=== PATIENT | female | born 1975 | race Caucasian/White ===

== ENCOUNTER 2018-10-30 15:28 | Emergency (ER) | payer MEDICAID, OTHER ==
[2018-10-30] MEDS ORDERED: NS 0.9% 1000 ML** 1,000 ML IV ONE (15:58)
[2018-10-30] MEDS ORDERED: Acetaminophen TAB* 325 MG PO ONE (15:58)
[2018-10-30] MEDS ORDERED: NS 0.9% 1000 ML** 1,000 ML IV.FLUID IV ONE (15:59)
[2018-10-30] MEDS ORDERED: cefTRIAXone(*) 1 GM in NS 0.9% 50 ML* 50 ML IVPB ONE (16:00)
--- NOTE | 2018-10-30 16:01 | ED ---
Altered Mental Status - HPI Summary HPI Summary: Patient is a 43 y/o F presenting to ED with EMS and law enforcement for AMS. affirmative action officer reports that patient was found smoking what is likely synthetic marijuana. Patient became agitated, even more so when she was placed in handcuffs, and she began to yell and scream. It is reported that the patient slammed her head on the ground +14 times. In the room, patient claims to have no memory of the incident. Patient claims that she had initially thought she was smoking marijuana but it was actually K2. She notes that she had some alcohol today as well. Patient also claims that she is a recovering heroin addict. No SI, no HI reported. No HANLEY, no neck pain at present. In room, patient is tearful and cooperative. On triage, pain is denied, nothing is noted to aggravate/alleviate Sx. Home medications and allergies are reviewed. - History Of Current Complaint Stated Complaint: 2208 Time Seen by Provider: 10/30/18 15:33 Hx Obtained From: Patient Hx Last Menstrual Period: 04/10/14 Onset/Duration: Resolved - patient is now cooperative and calm Timing: Intermittent, Lasting Minutes Severity Currently: None - pain denied Character: Agitation Aggravating Factor(s): Drug Abuse Alleviating Factor(s): Nothing Associated Signs And Symptoms: Negative: Headache - Allergies/Home Medications Allergies/Adverse Reactions: Allergies Allergy/AdvReac Type Severity Reaction Status Date / Time MS Bee Venom [Bee Venom] Allergy Intermediate Hives Verified 01/30/16 13:18 MS Shellfish Allergy Allergy Intermediate Nausea Verified 01/30/16 13:18 [Shellfish Allergy] MS Soap [Soap] Allergy Intermediate Hives Verified 01/30/16 13:18 MS Penicillins [Penicillins] Allergy Unknown Unknown Verified 01/30/16 13:18 Reaction Details PMH/Surg Hx/FS Hx/Imm Hx Endocrine/Hematology History: Denies: Hx Diabetes, Hx Thyroid Disease Cardiovascular History: Denies: Hx Congestive Heart Failure, Hx Hypertension Respiratory History: Denies: Hx Asthma, Hx Chronic Obstructive Pulmonary Disease (COPD) GI History: Denies: Hx Ulcer History: Denies: Hx Renal Disease Musculoskeletal History: Reports: Hx Back Problems - djd,herniated disc Sensory History: Reports: Hx Contacts or Glasses Denies: Other Sensory Impairments Opthamlomology History: Reports: Hx Contacts or Glasses Denies: Other Sensory Impairments Psychiatric History: Reports: Hx Anxiety, Hx Depression, Hx Inpatient Treatment , Hx Suicide Attempt, Hx Substance Abuse Comment Only: Hx of Violent Episodes Against Others - unknown - Surgical History Surgery Procedure, Year, and Place: tubal-1998. appendectomy-1999. left arm surgery-2012. tonsilectomy Hx Anesthesia Reactions: No Infectious Disease History: Denies: Hx Clostridium Difficile, Hx Hepatitis, Hx Human Immunodeficiency Virus (HIV), Hx of Known/Suspected MRSA, Hx Shingles, Hx Tuberculosis, Hx Known/ Suspected VRE, Hx Known/Suspected VRSA, History Other Infectious Disease, Traveled Outside the [place] in Last 30 Days - Family History Known Family History: Negative: Blood Disorder - Social History Alcohol Use: Rare Substance Use Type: Reports: None Substance Use Comment - Amount & Last Used: rarely Smoking Status (MU): Current Every Day Smoker Type: Cigarettes Amount Used/How Often: 1 ppd Length of Time of Smoking/Using Tobacco: 15 YEARS Have You Smoked in the Last Year: Yes Review of Systems Musculoskeletal: Other - NEGATIVE - NECK PAIN Negative: Headache Psychological: Other - NEGATIVE - HI, SI; POSITIVE - AMS, SINCE RESOLVED All Other Systems Reviewed And Are Negative: Yes Physical Exam - Summary Physical Exam Summary: VITAL SIGNS: Reviewed. GENERAL: Patient is a well-developed and nourished female who is lying comfortable in the stretcher. Patient is not in any acute respiratory distress. Patient appears to be under the influence of a substance. HEAD AND FACE: No signs of trauma. No ecchymosis, hematomas or skull depressions. No sinus tenderness. EYES: PERRLA, EOMI x 2, No injected conjunctiva, no nystagmus. EARS: Hearing grossly intact. Ear canals and tympanic membranes are within normal limits. MOUTH: Oropharynx within normal limits. NECK: Supple, trachea is midline, no adenopathy, no JVD, no carotid bruit, no c- spine tenderness, neck with full ROM. CHEST: Symmetric, no tenderness at palpation LUNGS: Clear to auscultation bilaterally. No wheezing or crackles. CVS: Regular rate and rhythm, S1 and S2 present, no murmurs or gallops appreciated. ABDOMEN: Soft, non-tender. No signs of distention. No rebound no guarding, and no masses palpated. Bowel sounds are normal. EXTREMITIES: FROM in all major joints, no cyanosis or clubbing. NEURO: Alert and oriented x 3. No acute neurological deficits. Speech is normal and follows commands. SKIN: Dry and warm; swelling and erythema of dorsal aspect of right wrist and hand. PSYCH: Depressed, quiet, and denies any suicidal thoughts or plan. No homicidal thoughts or plan. No signs of psychosis or pressure speech. No tangential speech. Triage Information Reviewed: Yes Vital Signs On Initial Exam: Initial Vitals Temp Pulse Resp BP Pulse Ox 101.8 F 144 20 111/71 96 10/30/18 15:49 10/30/18 15:49 10/30/18 15:49 10/30/18 15:49 10/30/18 15:49 Vital Signs Reviewed: Yes Diagnostics - Laboratory Result Diagrams: 10/30/18 16:10 10/30/18 16:10 Lab Statement: Any lab studies that have been ordered have been reviewed, and results considered in the medical decision making process. - Radiology CXR Radiology Interpretation Completed By: ED Physician Summary of Radiographic Findings: IMPRESSION: No cardiopulmonary disease is noted. - CT brain ct CT Interpretation Completed By: Radiologist Summary of CT Findings: IMPRESSION: Likely acute sinusitis involving the left maxillary sinus. No intracranial. mass or hemorrhage is noted. This report was reviewed by ED physician. - EKG 1620 Cardiac Rate: Tachycardia - rate of 126 BPM EKG Rhythm: Sinus Tachycardia Summary of EKG Findings: EKG showed sinus tachycardia with rate of 126 BPM, no ST elevation. Re-Evaluation - Re-Evaluation First Eval Re-Evaluation Time: 13:37 Comment: She requests to be discharged home. The patient is with her and the is alert and oriented 3 and seems to be not under any influence of any substance. The will take the patient home at his responsibility. The patient wants to go home with his her therefore I will be discharging the patient home with follow-up with PCP. She will be given a prescription for Keflex for the right hand cellulitis. I discussed all the findings and test results with the patient. Patient was instructed to return to the emergency room immediately if any of the symptoms return or worsens. Plan of care was discussed with the patient and understands and agrees. All questions were answered at patient satisfaction. There were no further complaints or concerns. Lung exam before discharge: CTA B/L. Good air exchange. No wheezing or crackles heard. CVS: S1 and S2 present. No murmurs appreciated. Patient is alert and oriented x 3. Patient is hemodynamically stable. Patient will be discharged home with follow up PCP in the next 2-3 days Altered Mental Statu Course/Dx - Course Assessment/Plan: Patient is a 43 y/o F presenting to ED with EMS and law enforcement for AMS. affirmative action officer reports that patient was found smoking what is likely synthetic marijuana. Patient became agitated, even more so when she was placed in handcuffs, and she began to yell and scream. It is reported that the patient slammed her head on the ground +14 times. In the room, patient claims to have no memory of the incident. Patient claims that she had initially thought she was smoking marijuana but it was actually K2. She notes that she had some alcohol today as well. Patient also claims that she is a recovering heroin addict. No SI, no HI reported. No HANLEY, no neck pain at present. In room, patient is tearful and cooperative. Blood work without any significant abnormality except for WBCs of 13.1, glucose 144, troponin 0.00. Beta hCG is negative. Alcohol level less than 10. Influenza A and B is negative. In the ED course the patient was tachycardic, slightly hypertensive, and the BG 144. Therefore I started the sepsis protocol and gave the patient IV fluids 30 ccs per KG, she was given Rocephin and blood cultures were sent. After the patient was given IV fluids and Tylenol all her vital signs are stable. I believe that her symptoms are secondary to the symptoms marijuana that she took. However she has small carea of cellulitis in the right hand probably the source of infection. She requests to be discharged home. The patient is with her and the is alert and oriented 3 and seems to be not under any influence of any substance. The will take the patient home at his responsibility. The patient wants to go home with his her therefore I will be discharging the patient home with follow-up with PCP. She will be given a prescription for Keflex for the right hand cellulitis. I discussed all the findings and test results with the patient. Patient was instructed to return to the emergency room immediately if any of the symptoms return or worsens. Plan of care was discussed with the patient and understands and agrees. All questions were answered at patient satisfaction. There were no further complaints or concerns. Lung exam before discharge: CTA B/L. Good air exchange. No wheezing or crackles heard. CVS: S1 and S2 present. No murmurs appreciated. Patient is alert and oriented x 3. Patient is hemodynamically stable. Patient will be discharged home with follow up PCP in the next 2-3 days - Diagnoses Provider Diagnoses: Polysubstance abuse, Cellulitis Discharge - Sign-Out/Discharge Documenting (check all that apply): Patient Departure - discharge Patient Received Moderate/Deep Sedation with Procedure: No - NO PROCEDURES DONE - Discharge Plan Condition: Stable Disposition: HOME Prescriptions: Cephalexin CAP* [Keflex CAP*] 500 mg PO QID #40 cap Patient Education Materials: Cellulitis (ED), Polysubstance Abuse (ED) Referrals: Michael Myers MD [Primary Care Provider] - 3 Days Additional Instructions: RETURN TO EMERGENCY DEPARTMENT FOR ANY NEW OR WORSENING SYMPTOMS. FOLLOW UP WITH PRIMARY CARE PHYSICIAN WITHIN THREE DAYS. - Billing Disposition and Condition Condition: STABLE Disposition: Home - Attestation Statements Document Initiated by Justinibe: Yes Documenting Scribe: ERNESTO BOSE Provider For Whom Justinibe is Documenting (Include Credential): LALO GUZMAN MD Scribe Attestation: IERNESTO , scribed for LALO GUZMAN MD on 10/31/18 at 1115. Scribe Documentation Reviewed: Yes Provider Attestation: The documentation as recorded by the ERNESTO sánchez accurately reflects the service I personally performed and the decisions made by me, LALO GUZMAN MD Status of Scribe Document: Viewed
[2018-10-30 16:25] LABS: ABS Basophils 0.1 10^3/ul (0-0.2); ABS Eosinophils 0 10^3/ul (0-0.6); ABS Monocytes 0.7 10^3/ul (0-0.8); ABS Neutrophils 11.3 10^3/ul (1.5-7.7); ABS Nucleated RBC 0 10^3/ul; Eosinophil % 0.2 %; Hematocrit 44 % (35-47); Hemoglobin 14.9 g/dl (12.0-16.0); Lymphocyte % 7.6 %; Mean Corpuscular HGB Conc 34 g/dl (31-36); Mean Corpuscular Hemoglobin 32 pg (27-31); Mean Corpuscular Volume 93 fL (80-97); Mean Platelet Volume 8.8 fL (7.4-10.4); Nucleated Red Blood Cells % 0; Platelet Count 265 10^3/ul (150-450); Red Cell Distribution Width 13 % (10.5-15); White Blood Count 13.1 10^3/ul (3.5-10.8)
[2018-10-30 16:39] LABS: ALT 16 U/L (7-52); AST 21 U/L (13-39); Albumin 4.4 g/dL (3.2-5.2); Albumin/Globulin Ratio 1.8 (1-3); Alkaline Phosphatase 55 U/L (34-104); Anion Gap 7 mmol/L (2-11); BUN/Creatinine Ratio 14.9 (8-20); Blood Urea Nitrogen 14 mg/dL (6-24); CO2 Carbon Dioxide 27 mmol/L (22-32); Calcium 9.4 mg/dL (8.6-10.3); Chloride 102 mmol/L (101-111); Creatine Kinase 164 U/L (10-223); EGFR African American 78.6 (>60); Globulin 2.5 g/dL (2-4); Glucose 144 mg/dL (70-100); Sodium 136 mmol/L (135-145); Total Protein 6.9 g/dL (6.4-8.9)
[2018-10-30 16:45] LABS: HCG Pregnancy < 0.60 mIU/mL
[2018-10-30 17:15] LABS: Acetaminophen < 15 mcg/mL; Alcohol < 10 mg/dL (<10); Salicylate < 2.50 mg/dL (<30)
[2018-10-30 17:22] LABS: C Reactive Protein 5.65 mg/L (<8.01)
[2018-10-30 17:27] LABS: TSH (Thyroid Stimulating Horm) 0.56 mcIU/mL (0.34-5.60)
[2018-10-30 18:18] LABS: Influenza A Molecular NEGATIVE (Negative); Influenza B Molecular NEGATIVE (Negative)
[2018-10-30 19:01] LABS: Urine Appearance Cloudy; Urine Bacteria Absent (Absent); Urine Bilirubin Negative (Negative); Urine Blood Negative (Negative); Urine Color Yellow; Urine Glucose Negative (Negative); Urine Ketones Trace (Negative); Urine Nitrite Negative (Negative); Urine Protein Negative (Negative); Urine Red Blood Cell Absent (Absent); Urine Specific Gravity 1.023 (1.010-1.030); Urine Squamous Epithelial Cell Present (Absent); Urine Urobilinogen Negative (Negative); Urine White Blood Cell 2+(11-20/hpf) (Absent)
[2018-10-30 19:09] LABS: Barbiturates Urine Screen None Detected (None Detect); Benzodiazepine Urine Screen None Detected (None Detect); Urine Cannabinoids Screen Presumptive Positive (None Detect)
[2018-10-30 19:27] VITALS: BP 139/79
== END 2018-10-30 19:25 | disposition home or self-care (01) ==
LOC: ED 15:28
DX: F19.10 Other psychoactive substance abuse, uncomplicated (principal); L03.90 Cellulitis, unspecified; F17.210 Nicotine dependence, cigarettes, uncomplicated
CPT/HCPCS: 36415; 70450; 71046; 80053; 80307; 80320; 80329; 81003; 81015; 82550; 83605; 84443; 84484; 84702; 85025; 85384; 85652; 86140; 87040; 87086; 93005; 99284; A9270-GY; G0480; J0696

== ENCOUNTER 2019-04-01 09:16 | Emergency (ER) | payer MEDICAID, OTHER ==
[2019-04-01] MEDS ORDERED: NS 0.9% 1000 ML** 1,000 ML IV ONE (09:20)
[2019-04-01] MEDS ORDERED: Ondansetron ODT TAB* 4 MG PO ONE (09:20)
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
[2019-04-01] MEDS ORDERED: Iodixanol* (CONTRAST) 320 MG/ML 100 ML SDV IV ONE (09:31)
[2019-04-01 09:58] LABS: Hematocrit 45 % (35-47); Hemoglobin 14.8 g/dL (12.0-16.0); Mean Corpuscular HGB Conc 33 g/dL (31-36); Mean Corpuscular Hemoglobin 31 pg (27-31); Mean Corpuscular Volume 94 fL (80-97); Mean Platelet Volume 9.4 fL (7.4-10.4); Platelet Count 235 10^3/uL (150-450); Red Blood Count 4.73 10^6 /uL (3.70-4.87); Red Cell Distribution Width 13 % (10-15)
[2019-04-01 10:23] LABS: ALT 18 U/L (7-52); AST 20 U/L (13-39); Albumin 3.8 g/dL (3.2-5.2); Albumin/Globulin Ratio 1.4 (1-3); Alkaline Phosphatase 63 U/L (34-104); Anion Gap 6 mmol/L (2-11); BUN/Creatinine Ratio 15.8 (8-20); Blood Urea Nitrogen 12 mg/dL (6-24); CO2 Carbon Dioxide 26 mmol/L (22-32); Calcium 9.1 mg/dL (8.6-10.3); Chloride 107 mmol/L (101-111); Creatine Kinase 71 U/L (10-223); EGFR African American 100.5 (>60); EGFR Non-African American 83.1 (>60); Globulin 2.7 g/dL (2-4); Glucose 106 mg/dL (70-100); Potassium 4.5 mmol/L (3.5-5.0); Sodium 139 mmol/L (135-145); Total Protein 6.5 g/dL (6.4-8.9)
[2019-04-01 10:25] LABS: HCG Pregnancy < 0.60 mIU/mL
[2019-04-01 10:30] LABS: ABS Basophils 0.1 10^3/ul (0-0.2); ABS Eosinophils 0.3 10^3/ul (0-0.6); ABS Monocytes 0.6 10^3/ul (0-0.8); Lymphocyte % 18.1 %
[2019-04-01] MEDS ORDERED: Morphine 4 MG/ML VIAL (1 ml) 4 MG/ML VIAL IV ONE (10:34)
[2019-04-01 10:58] LABS: Urine Appearance Clear; Urine Bacteria Absent (Absent); Urine Bilirubin Negative (Negative); Urine Blood 1+ (Negative); Urine Color Straw; Urine Glucose Negative (Negative); Urine Ketones Negative (Negative); Urine Nitrite Negative (Negative); Urine Protein Negative (Negative); Urine Red Blood Cell Trace(0-2/hpf) (Absent); Urine Specific Gravity 1.017 (1.010-1.030); Urine Squamous Epithelial Cell Present (Absent); Urine Urobilinogen Negative (Negative); Urine White Blood Cell Absent (Absent)
[2019-04-01] MEDS ORDERED: Ketorolac INJ* 30 MG/ML 1 ML VIAL IV PUSH ONE (11:10)
[2019-04-01 11:24] LABS: Urine Benzodiazepine Screen None Detected (None Detect); Urine Opiates Screen None Detected (None Detect)
[2019-04-01 12:00] VITALS: BP 155/88
== END 2019-04-01 11:58 | disposition home or self-care (01) ==
LOC: ED 09:16
DX: M79.18 Myalgia, other site (principal); V03.90XA Pedestrian on foot injured in collision with car, pick-up truck or van, unspecified whether traffic or nontraffic accident, initial encounter; Y93.01 Activity, walking, marching and hiking; F17.210 Nicotine dependence, cigarettes, uncomplicated; Z88.0 Allergy status to penicillin; M51.36 Other intervertebral disc degeneration, lumbar region
CPT/HCPCS: 36415; 72131; 74177; 80053; 80307; 81003; 81015; 82550; 83605; 84702; 85025; 85060; 96361; 96374; 96375; 99283; A9270-GY; J1885; J2270

== ENCOUNTER 2019-06-12 18:56 | Inpatient (IN) | payer MEDICAID ==
[2019-06-12] MEDS ORDERED: NS 0.9% 1000 ML** 2,000 ML IV ONE (19:12)
[2019-06-12] MEDS ORDERED: metroNIDAZOLE IV 500 MG/100ML* 500 MG/100 ML BAG IVPB ONE (19:15)
[2019-06-12] MEDS ORDERED: cefTRIAXone(*) 2 GM in NS 0.9% 100 ML* 100 ML IVPB ONE (19:15)
--- NOTE | 2019-06-12 19:15 | ED ---
Skin Complaint - HPI Summary HPI Summary: The patient is a 44 y/o F presenting to [facility] with a chief complaining of gradual onset swelling in the right mandible following a break in her right lower molar filling two days ago. She reports that her symptoms began after she had eaten something and got something stuck in a broken filling, which she tried to remove using a toothpick, although she states she usually just swishes water or mouthwash around as treatment. This caused immense pain in the tooth, which onset swelling in the mandibular region. The next day, there was an increase in swelling, and she went to her PCP and received a course of abx. However, she now has erythema extending from the right mandible into the neck and across to the left side. Currently, her symptoms are rated 3/10 in severity. She is unsure if shes had a fever, although she has had a warm sensation. She also states she has been unable to eat secondary to the pain. It is noted that the patient is partaking in a methadone program, which she attends to daily by going to the treatment center and receiving 50mg Methadone. PMHx: anxiety, depression, sciatica, tonsillectomy. Current every day smoker, rare EtOH, marijuana and cocaine use. Medications reviewed. Allergies noted. - History of Current Complaint Chief Complaint: EDRashSkinAbscess Time Seen by Provider: 06/12/19 19:07 Stated Complaint: SWELLING FROM ABSCSESS PER EMS Hx Obtained From: Patient Hx Last Menstrual Period: 04/10/14 Onset/Duration: Started Days Ago - two, Still Present, Worse Since - yesterday Skin Exposure Onset/Duration: Days Ago Timing: Lasting Days Onset Severity: Mild Current Severity: Moderate Pain Intensity: 3 Pain Scale Used: 0-10 Numeric Skin Location: Other: - right jaw into the neck Character: Swelling, Redness Aggravating Symptom(s): Other: - eating Alleviating Symptom(s): Treatment [employer]: - abx to no relief Associated Signs & Symptoms: Fever - warm sensation - Allergy/Home Medications Allergies/Adverse Reactions: Allergies Allergy/AdvReac Type Severity Reaction Status Date / Time bee venom protein (honey bee) Allergy Hives Verified 04/01/19 09:37 Penicillins Allergy Unknown Verified 04/01/19 09:37 Reaction Details shellfish derived Allergy Nausea And Verified 04/01/19 09:37 Vomiting ivory soap Allergy Hives Uncoded 04/01/19 09:37 Home Medications: Home Medications Fluoxetine HCl 1 cap PO DAILY 06/12/19 [History Confirmed 06/12/19] Gabapentin 2 cap PO TID 06/12/19 [History Confirmed 06/12/19] Ibuprofen TAB* [Motrin TAB* 600 MG] 1 tab PO Q6H PRN 06/12/19 [History Confirmed 06/12/19] Trazodone HCl 100 mg PO BEDTIME 06/12/19 [History Confirmed 06/12/19] PMH/Surg Hx/FS Hx/Imm Hx Endocrine/Hematology History: Denies: Hx Diabetes, Hx Thyroid Disease Cardiovascular History: Denies: Hx Congestive Heart Failure, Hx Hypertension Respiratory History: Denies: Hx Asthma, Hx Chronic Obstructive Pulmonary Disease (COPD) GI History: Denies: Hx Ulcer History: Denies: Hx Renal Disease Musculoskeletal History: Reports: Hx Back Problems - djd,herniated disc Sensory History: Reports: Hx Contacts or Glasses Denies: Other Sensory Impairments Opthamlomology History: Reports: Hx Contacts or Glasses Denies: Other Sensory Impairments Neurological History: Reports: Other Neuro Impairments/Disorders - sciatica Psychiatric History: Reports: Hx Anxiety, Hx Depression, Hx Inpatient Treatment , Hx Suicide Attempt, Hx Substance Abuse Denies: Hx Eating Disorder Comment Only: Hx of Violent Episodes Against Others - unknown - Surgical History Surgical History: Yes Surgery Procedure, Year, and Place: tubal-1998. appendectomy-1999. left arm surgery-2012. tonsillectomy Hx Anesthesia Reactions: No Infectious Disease History: No Infectious Disease History: Denies: Hx Clostridium Difficile, Hx Hepatitis, Hx Human Immunodeficiency Virus (HIV), Hx of Known/Suspected MRSA, Hx Shingles, Hx Tuberculosis, Hx Known/ Suspected VRE, Hx Known/Suspected VRSA, History Other Infectious Disease, Traveled Outside the [place] in Last 30 Days - Family History Known Family History: Negative: Hypertension, Blood Disorder - Social History Alcohol Use: Rare Hx Substance Use: Yes - Heroin Substance Use Type: Reports: Cocaine, Marijuana Substance Use Comment - Amount & Last Used: rarely Hx Tobacco Use: Yes Smoking Status (MU): Current Every Day Smoker Type: Cigarettes Amount Used/How Often: 1 ppd Length of Time of Smoking/Using Tobacco: 15 YEARS Have You Smoked in the Last Year: Yes Review of Systems Positive: Fever - unsure but warm sensation Positive: Dental Pain - right low teeth Positive: Other - swelling and erythema extending over the neck into the jaw All Other Systems Reviewed And Are Negative: Yes Physical Exam - Summary Physical Exam Summary: Appearance: Well-appearing, Well-nourished, lying in bed comfortably Skin: Warm, dry Eyes: sclera anicteric, no conjunctival pallor ENT: mucous membranes moist, pharynx appears normal Neck: Swelling about the right side of the jaw that extends across the midlines to the left neck, Redness extending up the side of the mandible, Supple, nontender Respiratory: Clear to auscultation, no signs of respiratory distress Cardiovascular: Normal S1, S2. No murmurs. Normal distal pulses in tibial and radial bilaterally. Abdomen: Soft, nontender, normal active bowel sounds present Musculoskeletal: Normal, Strength/ROM Intact Neurological: A&Ox3, awake and alert, mentation is normal, speech is fluent and appropriate Psychiatric: affect is normal, does not appear anxious or depressed Triage Information Reviewed: Yes Vital Signs On Initial Exam: Initial Vitals Temp Pulse Resp BP Pulse Ox 97.5 F 83 16 106/60 98 06/12/19 19:03 06/12/19 19:03 06/12/19 19:03 06/12/19 19:03 06/12/19 19:03 Vital Signs Reviewed: Yes Diagnostics - Vital Signs Vital Signs Temp Pulse Resp BP Pulse Ox 06/12/19 19:03 97.5 F 83 16 106/60 98 - Laboratory Result Diagrams: 06/13/19 10:21 06/13/19 10:21 Lab Statement: Any lab studies that have been ordered have been reviewed, and results considered in the medical decision making process. - CT Neck CT CT Interpretation Completed By: Radiologist Summary of CT Findings: Impression: 1. 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 2. Multiple dental caries and associated radicular cysts. ED physician has reviewed this report. Re-Evaluation - Re-Evaluation First Eval Re-Evaluation Time: 01:26 Comment: Pt is very upset about only having sandwiches to eat and she feels that she is suffering withdrawal symptoms from opioids. I have tried to calm her down and ordered an extra dose of methadone and a dose of ativan. Course/Dx - Course Course Of Treatment: Pt is a 44 y/o F with cc of swelling and erythema gradually worsening over the last two days after getting food stuck in a broken filling in the right lower molar. Upon physical exam, the pt exhibits swelling in the right side of the jaw that extends acorss the midlines to the left neck with redness extending up to the side of the mandible. In the ED course, the patient was administered IV fluids, IV Flagyl, and IV Ceftriaxone. Blood work reveals sodium 132, chloride 96, creatinine 1.89, glucose 103, and CRP 189.18. I discussed the patients case with Dr. Beal from hospitalist services, and he accepts the pt for admission. He will follow up with Soft Tissue Neck CT impression reveals suspicion for Trevon's angina with tongue base abscess and extensive perimandibular and neck inflammation. She understands and agrees with this plan. She is diagnosed with Trevon's angina. - Diagnoses Provider Diagnoses: Trevon's angina - Physician Notifications Discussed Care Of Patient With: Felix Beal - hospitalist Time Discussed With Above Provider: 20:10 Instructed by Provider To: Admit As Observation - Following discussion of pt's case, Dr. Beal accepts her for admission. Discharge ED - Sign-Out/Discharge Documenting (check all that apply): Patient Departure - Patient accepted for admission by Dr. Beal. Patient Received Moderate/Deep Sedation with Procedure: No - Discharge Plan Condition: Stable Disposition: ADMITTED TO [facility] - Billing Disposition and Condition Condition: STABLE Disposition: Admitted to [facility] - Attestation Statements Document Initiated by Ayan: Yes Documenting Scribe: Lauren Washington Provider For Whom Ayan is Documenting (Include Credential): Dr. Varinder Arriaga MD Scribsujatha Attestation: Lauren Stahl scribed for Dr. Varinder Arriaga MD on 06/13/19 at 1905. Scribe Documentation Reviewed: Yes Provider Attestation: The documentation as recorded by the Lauren sánchez accurately reflects the service I personally performed and the decisions made by me, Dr. Varinder Arriaga MD Status of Scribe Document: Viewed
[2019-06-12 20:06] LABS: ALT 11 U/L (7-52); AST 24 U/L (13-39); Albumin 3.6 g/dL (3.2-5.2); Albumin/Globulin Ratio 1.2 (1-3); Alkaline Phosphatase 64 U/L (34-104); Anion Gap 9 mmol/L (2-11); Blood Urea Nitrogen 17 mg/dL (6-24); C Reactive Protein 189.18 mg/L (<8.01); CO2 Carbon Dioxide 27 mmol/L (22-32); Calcium 8.9 mg/dL (8.6-10.3); Chloride 96 mmol/L (101-111); EGFR Non-African American 28.9 (>60); Glucose 103 mg/dL (70-100); Potassium 3.7 mmol/L (3.5-5.0); Sodium 132 mmol/L (135-145); Total Protein 6.6 g/dL (6.4-8.9)
[2019-06-12 20:13] LABS: HCG Pregnancy < 0.60 mIU/mL
[2019-06-12] MEDS ORDERED: NS 0.9% 1000 ML** 3,000 ML IV ONE (20:55)
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
[2019-06-12 21:59] LABS: ABS Basophils 0.1 10^3/ul (0-0.2); ABS Eosinophils 0.2 10^3/ul (0-0.6); ABS Lymphocytes 0.9 10^3/ul (1.0-4.8); ABS Monocytes 1.1 10^3/ul (0-0.8); Eosinophil % 0.9 %; Hematocrit 39 % (35-47); Lymphocyte % 5.5 %; Mean Corpuscular HGB Conc 34 g/dL (31-36); Mean Corpuscular Hemoglobin 31 pg (27-31); Mean Corpuscular Volume 92 fL (80-97); Mean Platelet Volume 10.1 fL (7.4-10.4); Platelet Count 217 10^3/uL (150-450); Red Cell Distribution Width 13 % (10-15); White Blood Count 16.3 10^3/uL (3.5-10.8)
[2019-06-12 22:22] LABS: Urine Appearance Turbid; Urine Bacteria Absent (Absent); Urine Bilirubin Negative (Negative); Urine Blood 1+ (Negative); Urine Color Amber; Urine Glucose 1+(50 mg/dL) (Negative); Urine Ketones Trace (Negative); Urine Nitrite Negative (Negative); Urine Protein 3+(>=500 mg/dL) (Negative); Urine Red Blood Cell Absent (Absent); Urine Specific Gravity 1.017 (1.010-1.030); Urine Squamous Epithelial Cell Present (Absent); Urine Urobilinogen Negative (Negative); Urine White Blood Cell 3+(>20/hpf) (Absent)
[2019-06-13] MEDS ORDERED: Vancomycin(*) 1,000 MG in NS 0.9% 250 ML* 250 ML IVPB ONE ×3 (01:17→20:00)
[2019-06-13] MEDS ORDERED: LORazepam TAB(*) 1 MG PO ONE (01:25)
[2019-06-13] MEDS ORDERED: Methadone TAB* 10 MG PO ONE ×2 (01:25→09:19)
[2019-06-13] MEDS ORDERED: Vancomycin per Pharmacy* NOTE FOLLOW UP SCH (02:00)
[2019-06-13] MEDS ORDERED: Meropenem 1 GM PREMIX(*) 1 GM/50 ML BAG IV SCH ×2 (02:30→05:30)
[2019-06-13] MEDS: Gabapentin CAP(*) 400 MG PO SCH ×4 (03:43→22:05)
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
[2019-06-13] MEDS: NS 0.9% 1000 ML** 1,000 ML IV SCH (06:02)
[2019-06-13] MEDS ORDERED: FLUoxetine CAP* 20 MG PO SCH (09:00)
[2019-06-13] MEDS: Ibuprofen TAB* 600 MG PO PRN (09:01)
[2019-06-13 10:32] LABS: ABS Basophils 0.1 10^3/ul (0-0.2); ABS Eosinophils 0.2 10^3/ul (0-0.6); ABS Lymphocytes 1.1 10^3/ul (1.0-4.8); ABS Monocytes 0.9 10^3/ul (0-0.8); ABS Neutrophils 7.5 10^3/ul (1.5-7.7); Eosinophil % 2.5 %; Hematocrit 38 % (35-47); Hemoglobin 12.7 g/dL (12.0-16.0); Lymphocyte % 11.2 %; Mean Corpuscular HGB Conc 34 g/dL (31-36); Mean Corpuscular Hemoglobin 32 pg (27-31); Mean Corpuscular Volume 93 fL (80-97); Mean Platelet Volume 9.3 fL (7.4-10.4); Platelet Count 207 10^3/uL (150-450); Red Blood Count 4.04 10^6 /uL (3.70-4.87); Red Cell Distribution Width 13 % (10-15); White Blood Count 9.8 10^3/uL (3.5-10.8)
[2019-06-13 10:48] LABS: BUN/Creatinine Ratio 8.6 (8-20); Calcium 8.3 mg/dL (8.6-10.3); EGFR African American 68.9 (>60); EGFR Non-African American 56.9 (>60); Potassium 3.9 mmol/L (3.5-5.0)
--- NOTE | 2019-06-13 11:33 | CONS ---
CONSULTATION REPORT: DATE OF CONSULT: 06/13/19 ATTENDING: The hospitalist service. CONFIGURATION MANAGEMENT CONSULTANT: Dr. Cowan BRIEF HISTORY: This 44-year-old was admitted to the hospital with what appears to be a right dental abscess. She had right submandibular swelling and discomfort. She was admitted for IV antibiotics. There was some evidence of infiltration, but no evidence of discrete abscess. She is clinically improving, not having any airway distress and able to mobilize her tongue without difficulty, open her jaw without difficulty. On examination, she appears to have right submandibular, mandibular cellulitis with firmness, possible small abscess. This appears to be a periosteal abscess most likely related to dental caries. I would continue on IV antibiotics. If she is not improving in 48 hours, I would re-scan her with this additional information. I would suggest I and D of an abscess under general anesthesia may be helpful. She should have a dental followup after discharge if the clinical finding is improving without need for an abscess. Thanks for allowing me to see this patient. [id number]/CPS #: [id number] KERRY
[2019-06-13] MEDS: Nicotine Lozenge* mini 4 MG LOZNG.MINI MT PRN ×2 (13:58→22:05)
--- NOTE | 2019-06-13 15:04 | PN ---
Subjective Date of Service: 06/13/19 Interval History: Patient is very drowsy today. Patient still feels a if she is withdrawing from opiates. Patient states she hasn't eaten or slept in 4 days. Patient has diminished pain in her jaw. Patient in the afternoon got very agitated because of feeling disrespected by the nursing staff. Patient threatened to go AMA and then acquiesced to staying after she was able to give her barley steeper personally to her boyfriend. Patient is very concerned about not being taken seriously and not being given her meds appropriately. Family History: Unchanged from Admission Social History: Unchanged from Admission Past Medical History: Unchanged from Admission Objective Active Medications: Fluoxetine HCl (Prozac Cap*) 40 mg PO DAILY [facility] Last Admin: 06/13/19 09:00 Dose: 40 mg Gabapentin (Neurontin Cap(*)) 800 mg PO TID [facility] Last Admin: 06/13/19 13:57 Dose: 800 mg Sodium Chloride (Ns 0.9% 1000 Ml) 1,000 mls @ 100 mls/hr IV PER RATE [facility] Last Admin: 06/13/19 06:02 Dose: 100 mls/hr Vancomycin HCl 1,000 mg/ (Sodium Chloride) 250 mls @ 166.667 mls/hr IVPB ONCE ONE Stop: 06/13/19 17:29 Vancomycin HCl 1,000 mg/ (Sodium Chloride) 250 mls @ 166.667 mls/hr IVPB Q12H [facility] Cefepime HCl (Maxipime 2 Gm In Dextrose Duplex (*)) 2 gm in 50 mls @ 100 mls/ hr IV Q12H [facility] Metronidazole/Sodium Chloride (Flagyl 500 Mg Ivpb*) 500 mg in 100 mls @ 100 mls /hr IVPB Q8H [facility] Ibuprofen (Motrin Tab*) 600 mg PO Q6H PRN PRN Reason: PAIN - MILD Last Admin: 06/13/19 09:01 Dose: 600 mg Nicotine Polacrilex (Nicotine Lozenge Mini) 4 mg MT Q2H PRN PRN Reason: CRAVING Last Admin: 06/13/19 13:58 Dose: 4 mg Pharmacy Consult (Vancomycin Per Pharmacy*) 1 note FOLLOW UP .VANC PER PHARMACY DAWIT; Protocol Pharmacy Profile Note (Vancomycin Trough Check) 1 note FOLLOW UP 0530 ONE Stop: 06/15/19 05:31 Trazodone HCl (Desyrel Tab*) 50 mg PO BEDTIME DAWIT Vital Signs - 8 hr 06/13/19 06/13/19 06/13/19 07:15 08:00 08:58 Temperature 98.1 F Pulse Rate 112 Respiratory 20 20 20 Rate Blood Pressure 110/64 (mmHg) O2 Sat by Pulse 97 Oximetry 06/13/19 06/13/19 06/13/19 10:46 10:58 11:15 Temperature 98.1 F Pulse Rate 71 Respiratory 18 16 14 Rate Blood Pressure 147/86 (mmHg) O2 Sat by Pulse 100 Oximetry 06/13/19 13:57 Temperature Pulse Rate Respiratory 17 Rate Blood Pressure (mmHg) O2 Sat by Pulse Oximetry Oxygen Devices in Use Now: None Appearance: Patient is a 44yo female who appears stated age and is sitting in the bed in [facility]. Eyes: No Scleral Icterus, PERRLA Ears/Nose/Mouth/Throat: NL Teeth, Lips, Gums, Clear Oropharnyx, Mucous Membranes Moist, - - Swelling in the interior fo the mouth, poor dentition. Neck: - - Large swelling in the neck, particularly on the left side. Respiratory: Symmetrical Chest Expansion and Respiratory Effort, Clear to Auscultation Cardiovascular: NL Sounds; No Murmurs; No JVD, RRR, No Edema Abdominal: NL Sounds; No Tenderness; No Distention, No Hepatosplenomegaly Lymphatic: No Cervical Adenopathy Extremities: No Edema, No Clubbing, Cyanosis Skin: No Rash or Ulcers, No Nodules or Sclerosis Neurological: Alert and Oriented x 3, NL Sensation, NL Muscle Strength and Tone , - - Somnolence. CN II-XII intact. Result Diagrams: 06/13/19 10:21 06/13/19 10:21 Microbiology and Other Data: Microbiology 06/12/19 22:08 Urine Culture - Final Urine No Growth (<1,000 CFU/mL) Assess/Plan/Problems-Billing Assessment: Patient is a 44yo female with a PMH for Opiate use disorder, PTSD, Depression, here with neck cellulitis and possible small abscess related to dental caries who is improving on IV antibiotics. - Patient Problems (1) Cellulitis and abscess of neck Current Visit: Yes Status: Acute Code(s): L03.221 - CELLULITIS OF NECK; L02.11 - CUTANEOUS ABSCESS OF NECK SNOMED Code(s): 476389089 Comment: - Small abscess, Able to breathe and handle secretions. - Appreciate ENT input - Continue IV antibiotics, narrow to Cefepime/Flagyl from [facility] - May need I/D at some point. (2) Opiate dependence Current Visit: Yes Status: Acute Code(s): F11.20 - OPIOID DEPENDENCE, UNCOMPLICATED SNOMED Code(s): 67951394 Comment: - Continue Methadone at 60mg daily - Outpatient treatment through [facility]. - Has been having active withdrawal symptoms. (3) DVT prophylaxis Current Visit: Yes Status: Acute Code(s): Z29.9 - ENCOUNTER FOR PROPHYLACTIC MEASURES, UNSPECIFIED SNOMED Code(s): 168245714 Comment: - Ambulation, Low Risk (4) Full code status Current Visit: Yes Status: Acute Code(s): Z78.9 - OTHER SPECIFIED HEALTH STATUS SNOMED Code(s): 599164981 Status and Disposition: Inpatient for IV antibiotics for life-threatening neck infection.
[2019-06-13] MEDS ORDERED: Cefepime 2 GM in Dextrose(*) 2 GM/50 ML BAG IV SCH (15:20)
[2019-06-13] MEDS ORDERED: metroNIDAZOLE IV 500 MG/100ML* 500 MG/100 ML BAG IVPB SCH (16:00)
[2019-06-13] MEDS: Nicotine PATCH 21 MG/24 HR* PATCH TRANSDERM SCH ×2 (18:45→18:47)
[2019-06-13] MEDS ORDERED: LORazepam INJ* 2 MG/ML 1 ML VIAL IV PUSH PRN (19:55)
[2019-06-13] MEDS ORDERED: Lorazepam PYXIS KEY PRN (19:55)
[2019-06-13] MEDS ORDERED: traZODone TAB* 100 MG PO SCH ×2 (21:00)
[2019-06-13] MEDS ORDERED: Nicotine Patch Removal NOTE PATCH OFF SCH (21:00)
[2019-06-13] MEDS ORDERED: traZODone TAB* 50 MG TAB PO SCH (21:00)
[2019-06-13] MEDS ORDERED: Ondansetron INJ* 2 MG/ML VIAL IV PRN (22:38)
[2019-06-13] MEDS: metroNIDAZOLE IV 500 MG/100ML* 500 MG/100 ML BAG IVPB SCH (23:22)
[2019-06-14] MEDS: NS 0.9% 1000 ML** 1,000 ML IV SCH (03:50)
[2019-06-14] MEDS: Ibuprofen TAB* 600 MG PO PRN (04:58)
[2019-06-14] MEDS: Nicotine PATCH 21 MG/24 HR* PATCH TRANSDERM SCH ×2 (05:21→09:54)
[2019-06-14] MEDS: Gabapentin CAP(*) 400 MG PO SCH ×2 (05:21→14:27)
[2019-06-14] MEDS ORDERED: Cefepime 2 GM in Dextrose(*) 2 GM/50 ML BAG IV SCH (05:30)
[2019-06-14] MEDS: metroNIDAZOLE IV 500 MG/100ML* 500 MG/100 ML BAG IVPB SCH (05:37)
[2019-06-14] MEDS ORDERED: Methadone TAB* 10 MG PO SCH (06:00)
[2019-06-14] MEDS ORDERED: FLUoxetine CAP* 20 MG PO SCH (06:00)
[2019-06-14 06:38] LABS: ABS Basophils 0.1 10^3/ul (0-0.2); ABS Eosinophils 0.3 10^3/ul (0-0.6); ABS Lymphocytes 1.3 10^3/ul (1.0-4.8); ABS Monocytes 0.7 10^3/ul (0-0.8); ABS Neutrophils 3.1 10^3/ul (1.5-7.7); Eosinophil % 4.7 %; Hematocrit 36 % (35-47); Hemoglobin 12.1 g/dL (12.0-16.0); Lymphocyte % 24.9 %; Mean Corpuscular HGB Conc 34 g/dL (31-36); Mean Corpuscular Hemoglobin 31 pg (27-31); Mean Corpuscular Volume 93 fL (80-97); Mean Platelet Volume 9.5 fL (7.4-10.4); Nucleated Red Blood Cells % 0.1; Platelet Count 205 10^3/uL (150-450); Red Blood Count 3.86 10^6 /uL (3.70-4.87); Red Cell Distribution Width 13 % (10-15); White Blood Count 5.4 10^3/uL (3.5-10.8)
[2019-06-14 06:57] LABS: BUN/Creatinine Ratio 9.5 (8-20); Calcium 8.7 mg/dL (8.6-10.3); EGFR African American 103.2 (>60); EGFR Non-African American 85.3 (>60); Potassium 4.3 mmol/L (3.5-5.0)
[2019-06-14] MEDS ORDERED: Vancomycin(*) 1,000 MG in NS 0.9% 250 ML* 250 ML IVPB SCH (08:00)
[2019-06-14 11:50] VITALS: BP 103/54
[2019-06-14] MEDS ORDERED: Methadone TAB* 10 MG PO ONE (13:54)
--- NOTE | 2019-06-14 15:58 | PN ---
Subjective Date of Service: 06/14/19 Interval History: Patient has been agitated today about her IV pole beeping, angry that she feels her bags were searched yesterday without her consent. Today she was angry we asked her consent to get Substance Use d/o records from [facility], feels she was told we already talked to them yesterday. She spends excessive time in bathroom, and staff are concerned she is using other substances. She denies smoking or other substance abuse. She agrees to UDS. She has pain w/ swallowing. IV antibiotics have been delayed due to IV site malfunctioning frequently. She is upset that IV was not move earlier. Today she got IV in LT forearm w/ US guidance. Family History: Unchanged from Admission Social History: Unchanged from Admission Past Medical History: Unchanged from Admission Objective Active Medications: Fluoxetine HCl (Prozac Cap*) 40 mg PO DAILY@0600 [facility] Last Admin: 06/14/19 05:21 Dose: 40 mg Gabapentin (Neurontin Cap(*)) 800 mg PO TID@0600,1400,2100 [facility] Last Admin: 06/14/19 14:27 Dose: 800 mg Sodium Chloride (Ns 0.9% 1000 Ml) 1,000 mls @ 100 mls/hr IV PER RATE [facility] Last Admin: 06/14/19 03:50 Dose: 100 mls/hr Vancomycin HCl 1,000 mg/ (Sodium Chloride) 250 mls @ 166.667 mls/hr IVPB 0800, 2000 [facility] Last Admin: 06/14/19 11:12 Dose: 166.667 mls/hr Cefepime HCl (Maxipime 2 Gm In Dextrose Duplex (*)) 2 gm in 50 mls @ 100 mls/ hr IV 0530,1730 [facility] Last Admin: 06/14/19 04:57 Dose: 100 mls/hr Metronidazole/Sodium Chloride (Flagyl 500 Mg Ivpb*) 500 mg in 100 mls @ 100 mls /hr IVPB 0600,1400,2200 [facility] Last Admin: 06/14/19 05:37 Dose: 100 mls/hr Ibuprofen (Motrin Tab*) 600 mg PO Q6H PRN PRN Reason: PAIN - MILD Last Admin: 06/14/19 04:58 Dose: 600 mg Lorazepam (Ativan Inj*) 1 mg IV PUSH Q4H PRN PRN Reason: AGITATION Last Admin: 06/14/19 05:16 Dose: 1 mg Methadone HCl (Dolophine Tab*) 70 mg PO DAILY@0600 [facility] Nicotine (Nicotine Patch 21 Mg/24 Hr*) 1 patch TRANSDERM DAILY@0800 [facility] Last Admin: 06/14/19 09:54 Dose: Not Given Nicotine Polacrilex (Nicotine Lozenge Mini) 4 mg MT Q2H PRN PRN Reason: CRAVING Last Admin: 06/13/19 22:05 Dose: 4 mg Ondansetron HCl (Zofran Inj*) 4 mg IV Q4H PRN PRN Reason: NAUSEA/VOMITING Last Admin: 06/13/19 22:56 Dose: 4 mg Pharmacy Consult (Vancomycin Per Pharmacy*) 1 note FOLLOW UP .VANC PER PHARMACY [facility]; Protocol Trazodone HCl (Desyrel Tab*) 100 mg PO BEDTIME [facility] Last Admin: 06/13/19 22:05 Dose: 100 mg Vital Signs - 8 hr 06/14/19 06/14/19 06/14/19 08:00 11:15 14:06 Temperature 36.7 C Pulse Rate 69 Respiratory 18 18 17 Rate Blood Pressure 103/54 (mmHg) O2 Sat by Pulse 94 Oximetry 06/14/19 06/14/19 14:08 14:27 Temperature Pulse Rate Respiratory 17 16 Rate Blood Pressure (mmHg) O2 Sat by Pulse Oximetry Oxygen Devices in Use Now: None Appearance: hoarse voice, angry, argumentative Eyes: No Scleral Icterus Ears/Nose/Mouth/Throat: NL Teeth, Lips, Gums, - - tender soft edema in RT>LT submandibular area, 2 cm RT sup cerv LN Neck: NL Appearance and Movements; NL JVP Respiratory: Symmetrical Chest Expansion and Respiratory Effort Cardiovascular: NL Sounds; No Murmurs; No JVD Abdominal: NL Sounds; No Tenderness; No Distention, No Hepatosplenomegaly Neurological: - - alert, agitated, somnolent at times when calm Lines/Tubes/Other Access: Clean, Dry and Intact Peripheral IV Nutrition: Taking PO's Result Diagrams: 06/14/19 05:51 06/14/19 05:51 Assess/Plan/Problems-Billing Assessment: Patient is a 44yo female with a PMH for Opiate use disorder, PTSD, Depression, here with neck cellulitis and possible small abscess related to dental caries who is improving on IV antibiotics. - Patient Problems (1) Cellulitis and abscess of neck Current Visit: Yes Status: Acute Priority: High Code(s): L03.221 - CELLULITIS OF NECK; L02.11 - CUTANEOUS ABSCESS OF NECK SNOMED Code(s): 400441964 Comment: - Small abscess, no airway compromise. - Discussed goals of care with patient, she needs to interact with people so we can exist in same space, so she can get treatment - Continue IV antibiotics, Vanco, Cefepime/Flagyl (2) Opiate dependence Current Visit: Yes Status: Acute Priority: Medium Code(s): F11.20 - OPIOID DEPENDENCE, UNCOMPLICATED SNOMED Code(s): 12143487 Comment: - Increase Methadone to 70mg daily - Outpatient treatment through [facility], will get records - Agitation appears partly personality, partly withdrawal (3) DVT prophylaxis Current Visit: Yes Status: Acute Priority: Low Code(s): Z29.9 - ENCOUNTER FOR PROPHYLACTIC MEASURES, UNSPECIFIED SNOMED Code(s): 714084931 Comment: - Ambulation, Low Risk (4) Tobacco abuse Current Visit: Yes Status: Acute Priority: Medium Code(s): Z72.0 - TOBACCO USE SNOMED Code(s): 550158219 Comment: -Nurse smelled tobacco in BR. Patient denies smoking, states she dumped tobacco down toilet. -Reinforced hospital policy, we will need to search her bag if friend does not take all her belongings. Status and Disposition: Inpatient for IV antibiotics for life-threatening neck infection.
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
[2019-06-15] MEDS ORDERED: Methadone TAB* 10 MG PO SCH (06:00)
[2019-06-15] MEDS ORDERED: Vancomycin Trough Check NOTE FOLLOW UP ONE (07:30)
== END 2019-06-14 17:30 | disposition left against medical advice (07) | DRG 114 ==
LOC: ED 18:56 → MED 06-13 01:12
PROVIDERS: ADMIT Internal Medicine; ATTEND Internal Medicine
DX: K12.2 Cellulitis and abscess of mouth (principal); N17.9 Acute kidney failure, unspecified; F11.20 Opioid dependence, uncomplicated; F32.9 Major depressive disorder, single episode, unspecified; F43.10 Post-traumatic stress disorder, unspecified; F17.210 Nicotine dependence, cigarettes, uncomplicated; K02.9 Dental caries, unspecified; G47.00 Insomnia, unspecified; Z79.899 Other long term (current) drug therapy; Z91.030 Bee allergy status; Z88.0 Allergy status to penicillin; Z91.013 Allergy to seafood; Z91.048 Other nonmedicinal substance allergy status
CPT/HCPCS: 36415; 70490; 80048; 80053; 81003; 81015; 83605; 83735; 84702; 85025; 86140; 87086; 93005; 99284; A9270-GY; J0692; J0696; J2060; J2185; J2405; J3370

== ENCOUNTER 2019-06-14 19:34 | Inpatient (IN) | payer MEDICAID, OTHER ==
--- NOTE | 2019-06-14 20:01 | ED ---
Neck Pain - HPI Summary HPI Summary: The patient is a 44 y/o F presenting to [facility] with a chief complaint of right- sided jaw pain with swelling over the last few days. She was admitted to the hospital two days ago for Ludwigs angina following a dental issue, but she signed out AMA today. She states that she wanted to go see her kids but missed the last bus from the hospital and had to walk. Per triage, she was found passed out in front of admission, which is when a clinical assessment team was called, the pt decided to come back into the ED. Currently, her symptoms are rated 4/10 in severity. There is suspicion for substance use since she has hx, but she denies any use in the last 5 years. She requests admission for continuing treatment. PMHx: sciatica, tonsillectomy, anxiety, depression, PTSD, substance abuse. Current everyday cigarette smoker, rare EtOH, cocaine and marijuana use. Medications reviewed. Allergies noted. - History of Current Complaint Chief Complaint: EDDentalPain Stated Complaint: INFECTION PER NURSE Time Seen by Provider: 06/14/19 19:45 Hx Obtained From: Patient Hx Last Menstrual Period: 04/10/14 Onset/Duration Of Injury/Symptoms: Days Mechanism Of Injury: Other - dental infection Timing: Lasting Days Onset/Duration: Started days ago, Still Present Severity Initially: Moderate Severity Currently: Moderate Pain Intensity: 4 Pain Scale Used: 0-10 Numeric Location: Discrete At: - right jaw Character: Other: - swelling Aggravating Factors: Nothing Alleviating Factors: Nothing Associated Signs & Symptoms: Positive: Swelling Related History: Other - left AMA from hospital today with dx and tx for Trevon' s angina - Allergies/Home Medications Allergies/Adverse Reactions: Allergies Allergy/AdvReac Type Severity Reaction Status Date / Time bee venom protein (honey bee) Allergy Hives Verified 06/14/19 21:00 Penicillins Allergy Unknown Verified 06/14/19 21:00 Reaction Details shellfish derived Allergy Nausea And Verified 06/14/19 21:00 Vomiting soap Allergy Hives Verified 06/14/19 23:28 PMH/Surg Hx/FS Hx/Imm Hx Endocrine/Hematology History: Reports: Other Endocrine/Hematological Disorders - Trevon's angina Denies: Hx Diabetes, Hx Thyroid Disease Cardiovascular History: Denies: Hx Congestive Heart Failure, Hx Hypertension Respiratory History: Denies: Hx Asthma, Hx Chronic Obstructive Pulmonary Disease (COPD) GI History: Denies: Hx Ulcer History: Denies: Hx Renal Disease Musculoskeletal History: Reports: Hx Back Problems - djd,herniated disc Sensory History: Reports: Hx Contacts or Glasses Denies: Hx Hearing Aid, Other Sensory Impairments Opthamlomology History: Reports: Hx Contacts or Glasses Denies: Other Sensory Impairments Neurological History: Reports: Other Neuro Impairments/Disorders - sciatica Psychiatric History: Reports: Hx Anxiety, Hx Depression, Hx Post Traumatic Stress Disorder, Hx Inpatient Treatment, Hx Community Mental Health Tx - stated she has been seen at [facility] twice and didnt feel it helped either time, Hx Substance Abuse Denies: Hx Eating Disorder, Hx Panic Disorder, Hx Schizophrenia, Hx Bipolar Disorder, Hx Suicide Attempt, Hx of Violent Episodes Against Others - Surgical History Surgical History: Yes Surgery Procedure, Year, and Place: tubal-1998. appendectomy-1999. left arm surgery-2012. tonsillectomy Hx Anesthesia Reactions: No Infectious Disease History: No Infectious Disease History: Denies: Hx Clostridium Difficile, Hx Hepatitis, Hx Human Immunodeficiency Virus (HIV), Hx of Known/Suspected MRSA, Hx Shingles, Hx Tuberculosis, Hx Known/ Suspected VRE, Hx Known/Suspected VRSA, History Other Infectious Disease, Traveled Outside the [place] in Last 30 Days - Family History Known Family History: Negative: Hypertension, Diabetes, Blood Disorder - Social History Alcohol Use: Rare Hx Substance Use: Yes - Heroin Substance Use Type: Reports: Cocaine, Marijuana Substance Use Comment - Amount & Last Used: rarely Hx Tobacco Use: Yes Smoking Status (MU): Current Every Day Smoker Type: Cigarettes Amount Used/How Often: 1 ppd Length of Time of Smoking/Using Tobacco: 15 YEARS Have You Smoked in the Last Year: Yes Review of Systems Positive: Other - pain in the right jaw Positive: Syncope All Other Systems Reviewed And Are Negative: Yes Physical Exam - Summary Physical Exam Summary: Appearance: Well-appearing, Well-nourished, lying in bed comfortable Skin: Warm, dry, no obvious rash Eyes: sclera anicteric, no conjunctival pallor ENT: mucous membranes moist Neck: Swelling in the jaw appears improved since last seeing her two nights ago Respiratory: No signs of respiratory distress Cardiovascular: Appears well perfused, pulses are nml Abdomen: deferred Musculoskeletal: Moving all 4 extremities without obvious discomfort Neurological: Awake and alert, mentation is normal, speech is fluent and appropriate Psychiatric: affect is normal, does not appear anxious or depressed Triage Information Reviewed: Yes Vital Signs On Initial Exam: Initial Vitals Temp Pulse Resp BP Pulse Ox 98.7 F 78 15 115/66 97 06/14/19 19:35 06/14/19 19:35 06/14/19 19:35 06/14/19 19:35 06/14/19 19:35 Vital Signs Reviewed: Yes Diagnostics - Vital Signs Vital Signs Temp Pulse Resp BP Pulse Ox 06/14/19 19:35 98.7 F 78 15 115/66 97 - Laboratory Result Diagrams: 06/15/19 09:10 06/16/19 12:11 Lab Statement: Any lab studies that have been ordered have been reviewed, and results considered in the medical decision making process. Neck Course/Dx - Course Course Of Treatment: Pt is a 44 y/o F with cc of right-sided jaw pain with known infection (Ludwigs angina) found today with syncopal event after leaving [facility] from the hospital requesting admission. Upon physical exam, the pt exhibits swelling in the jaw that appears to be improved since last seeing her two nights ago. In the ED course, the pt was administered Gabapentin and given a Nicotine lozenge. Toxicology report is positive for cannabinoids and cocaine. I spoke with Dr. Romero, hospitalist, who accepts the pt for admission. Pt understands and agrees with plan. Dx is Trevon's angina. - Diagnoses Provider Diagnoses: Trevon's angina - Physician Notifications Discussed Care Of Patient With: Lynn Romero - hospitalist Time Discussed With Above Provider: 21:00 Instructed by Provider To: Admit As Observation - I discussed the pt's case with Dr. Romero, who accepts the pt for admission. Discharge ED - Sign-Out/Discharge Documenting (check all that apply): Patient Departure - Patient accepted for admission by Dr. Romero. Patient Received Moderate/Deep Sedation with Procedure: No - Discharge Plan Condition: Stable Disposition: ADMITTED TO [facility] - Billing Disposition and Condition Condition: STABLE Disposition: Admitted to [facility] - Attestation Statements Document Initiated by Scribe: Yes Documenting Scribe: Lauren Washington Provider For Whom Scribe is Documenting (Include Credential): Dr. Varinder Arriaga MD Scribe Attestation: ILauren, scribed for Dr. Varinder Arriaga MD on 06/18/19 at 1848. Scribe Documentation Reviewed: Yes Provider Attestation: The documentation as recorded by the Lauren sánchez accurately reflects the service I personally performed and the decisions made by me, Dr. Varinder Arriaga MD Status of Scrarchie Document: Viewed
[2019-06-14] MEDS ORDERED: Gabapentin CAP(*) 300 MG PO ONE (21:14)
[2019-06-14 21:20] LABS: Urine Benzodiazepine Screen None Detected (None Detect); Urine Opiates Screen None Detected (None Detect)
[2019-06-14] MEDS: Nicotine Lozenge* mini 4 MG LOZNG.MINI MT PRN (21:36)
[2019-06-14] MEDS ORDERED: Vancomycin(*) 1,000 MG in NS 0.9% 250 ML* 250 ML IVPB ONE (23:16)
[2019-06-14] MEDS ORDERED: Nicotine* 4MG (FRUIT FLAVOR) GUM PO PRN (23:19)
[2019-06-14] MEDS ORDERED: NS 0.9% 1000 ML** 1,000 ML IV SCH (23:30)
[2019-06-14] MEDS ORDERED: Vancomycin per Pharmacy* NOTE FOLLOW UP SCH (23:45)
[2019-06-15] MEDS ORDERED: traZODone TAB* 100 MG PO SCH
[2019-06-15] MEDS ORDERED: Cefepime ADVAN(*) 1 GM in NS 0.9% 50 ML* 50 ML IVPB SCH ×2
[2019-06-15] MEDS: Cefepime 1 GM in Dextrose(*) 1 GM/50 ML BAG IV SCH ×2 (01:07→13:07)
--- NOTE | 2019-06-15 01:09 | HP ---
CC: Dr. Myers * HISTORY AND PHYSICAL: DATE OF ADMISSION: 06/14/19 PRIMARY CARE PROVIDER: Dr. Myers. CHIEF COMPLAINT: Fall and persistent jaw pain. HISTORY OF PRESENT ILLNESS: Ms. Rodriguez is a 44-year-old female with a history of depression/anxiety, PTSD, and IV drug abuse, who has been on methadone, who was admitted to the hospital on 06/13/19 with diagnosis of Trevon angina. The patient left against medical advice on the afternoon of 06/14/19. The patient tells me that she went to go see her children; however, they were not at home. She then decided she would come back to the hospital and got on the bus. Unfortunately, she states that she took the wrong bus and had to walk up the hill to the hospital. She states that she was walking around inside and just felt so tired and dizzy that she fell in the lobby. The patient had a clinical assessment team called. There was concern that the patient was under the influence of some substance. The patient vehemently denies using heroin or cocaine or any other illicit drugs in the time period she was out of the hospital. The patient breaks down and starts crying numerous times during my evaluation; however, she also very easily falls asleep and has to be awakened several times to continue to answer my questions. The patient previously did not have a urine drug screen obtained. The urine drug screen is positive for both marijuana and cocaine. She states that she last used a couple days ago. She states she typically smokes a cocaine. She states that she last used heroin last Friday. PAST MEDICAL HISTORY: 1. Depression/anxiety/PTSD. 2. History of IV drug abuse. PAST SURGICAL HISTORY: 1. Appendectomy. 2. Tubal ligation. 3. Right salpingectomy. 4. Left arm surgery. MEDICATIONS: 1. Trazodone 100 mg p.o. q.h.s. 2. Nicotine patch 21 mg per 24 hours 1 patch topically daily. 3. Nicotine gum 4 mg p.o. q.2 hours p.r.n. craving. 4. Methadone 70 mg p.o. daily. 5. Ibuprofen 600 mg p.o. q.6 hours p.r.n. pain. 6. Gabapentin 800 mg p.o. t.i.d. 7. Fluoxetine 40 mg p.o. daily. 8. The patient was prescribed doxycycline; however, she has returned to the emergency room and is being readmitted. ALLERGIES: PENICILLIN. FAMILY HISTORY: Mom is living. She is in her 70s, has a history of lung cancer. Dad is at the age of 60; he had a history of lung cancer. SOCIAL HISTORY: The patient smokes 1 pack per day. She drinks alcohol rarely. She abuses heroin and cocaine and states she has not done so recently. She does not work. She is not . She has 3 children. She is unable to chose her healthcare proxy at this time. REVIEW OF SYSTEMS: The patient is difficult to redirect as she is crying historically about the fact that I told her she may no longer have the bed upstairs and may need to stay the night in the emergency room. She does not answer the rest of my questions. PHYSICAL EXAMINATION GENERAL: The patient is a well-developed, young female, who appears much older than her stated age, sitting in chair, drowsy, falling asleep easily, needing to be reawaken several times, but in no acute distress. VITAL SIGNS: Blood pressure 100/61, pulse 74, respirations 15, temp 98.7, O2 sat 94% on room air. HEENT: Pupils are pinpoint . Extraocular muscles are intact. Oropharynx is clear. Oral mucosa is moist. The patient has slight trismus and is unable to open her mouth fully. She is unable to fully protrude her tongue though there is otherwise good movement. There is significant firmness to the submandibular region, midline into the right. PULMONARY: Breath sounds are clear to equal bilaterally. CARDIAC: Normal S1, S2. Regular rate and rhythm. I do not appreciate any murmurs. There is 1 to 2+ bilateral lower extremity pitting edema. ABDOMEN: Bowel sounds are present. Abdomen is soft, nontender, nondistended. MUSCULOSKELETAL: There is no cyanosis or clubbing of the digits. There is full active range of motion of all 4 extremities. NEUROLOGIC: Cranial nerves II through XII appeared to be grossly intact. Sensation is intact to light touch throughout. Strength is 5/5 and symmetric in both upper and lower extremities bilaterally. PSYCH: The patient is somewhat altered and does appear to be under the influence of some substance, though she denies the labs, only new labs, now compared to this morning her urine drug screen, which is positive for cocaine and cannabinoids. SKIN: Visible areas of skin are warm and dry. There are no rashes. There looks to be excoriation above the upper lip. ASSESSMENT AND PLAN: Ms. Rodriguez is a 44-year-old female, who was previously admitted from 06/13/19 through 06/14/19 when she left [facility], who returns to the emergency room after a fall in the lobby of the hospital and is being readmitted for treatment of presumed Trevon angina. 1. Trevon angina. The patient will be readmitted to [address] [place] [address]. She will be resumed on vancomycin, cefepime, and Flagyl. She was seen by Dr. Cowan earlier on 06/13/19. It was recommended that if she continues to improve that she will just need to continue IV antibiotic therapy with followup by dentist for her dental abscess. If she fails to improve further, reimaging was recommended. 2. Drug abuse. The patient will be maintained on her methadone. Her urine drug screen was negative for narcotics. I am concerned that she may have used cocaine in the interim between when she left the hospital and when she returned. She will need close monitoring within the hospital as there was concern that she was using some illicit substances in her hospital room. 3. Tobacco abuse. We will continue nicotine gum and patch. 4. Depression and anxiety. Continue Prozac and trazodone. 5. DVT prophylaxis. According to the Adult Thrombosis Prophylaxis Risk Factor Assessment Guide, the patient has a total risk factor score of 1, making her lower risk. Ambulation will be utilized as DVT prophylaxis. 6. Code status is full. TIME SPENT: Forty minutes was spent admitting this patient. [id number]/[facility] #: [id number] [facility] MEDICAL CENTEREmeli
[2019-06-15] MEDS: Nicotine Lozenge* mini 4 MG LOZNG.MINI MT PRN (05:19)
[2019-06-15] MEDS ORDERED: Methadone TAB* 10 MG PO SCH (06:00)
[2019-06-15 09:23] LABS: ABS Eosinophils 0.2 10^3/ul (0-0.6); ABS Lymphocytes 1.5 10^3/ul (1.0-4.8); ABS Monocytes 0.7 10^3/ul (0-0.8); ABS Neutrophils 2.6 10^3/ul (1.5-7.7); Eosinophil % 4.9 %; Hematocrit 37 % (35-47); Hemoglobin 12.5 g/dL (12.0-16.0); Lymphocyte % 28.9 %; Mean Corpuscular HGB Conc 34 g/dL (31-36); Mean Corpuscular Hemoglobin 32 pg (27-31); Mean Corpuscular Volume 93 fL (80-97); Mean Platelet Volume 8.9 fL (7.4-10.4); Platelet Count 212 10^3/uL (150-450); Red Blood Count 3.96 10^6 /uL (3.70-4.87); Red Cell Distribution Width 13 % (10-15)
[2019-06-15] MEDS: Nicotine PATCH 21 MG/24 HR* PATCH TRANSDERM SCH (10:10)
[2019-06-15] MEDS: FLUoxetine CAP* 20 MG PO SCH (10:11)
[2019-06-15] MEDS: metroNIDAZOLE TAB* 250 MG PO SCH ×2 (10:11→22:17)
[2019-06-15] MEDS: Gabapentin CAP(*) 400 MG PO SCH ×3 (10:12→23:32)
[2019-06-15] MEDS: Vancomycin(*) 1,000 MG in NS 0.9% 250 ML* 250 ML IVPB SCH ×2 (10:13→17:29)
[2019-06-15 11:31] LABS: Calcium 8.4 mg/dL (8.6-10.3); Potassium 4.1 mmol/L (3.5-5.0)
[2019-06-15 11:33] LABS: BUN/Creatinine Ratio 6.9 (8-20); EGFR African American 136.6 (>60); EGFR Non-African American 112.9 (>60)
--- NOTE | 2019-06-15 11:50 | PN ---
Subjective Date of Service: 06/15/19 Interval History: Patient tells me she's having on/off symptomatic fever and chills. Had large BM this morning. Denies diarrhea, chest pain, difficulty breathing, nausea, vomiting. Endorses headache. Reportedly was frustrated with nursing staff and stated, "I want to kill myself. " She then stated she had no plan and did not want to . Objective Active Medications: Fluoxetine HCl (Prozac Cap*) 40 mg PO DAILY [facility] Last Admin: 06/15/19 10:11 Dose: 40 mg Gabapentin (Neurontin Cap(*)) 800 mg PO TID [facility] Last Admin: 06/15/19 10:12 Dose: 800 mg Sodium Chloride (Ns 0.9% 1000 Ml) 1,000 mls @ 100 mls/hr IV PER RATE [facility] Last Admin: 06/15/19 01:08 Dose: 100 mls/hr Cefepime HCl (Maxipime 1 Gm In Dextrose Duplex (*)) 1 gm in 50 mls @ 100 mls/ hr IV Q12H [facility] Last Admin: 06/15/19 01:07 Dose: 100 mls/hr Vancomycin HCl 1,000 mg/ (Sodium Chloride) 250 mls @ 166.667 mls/hr IVPB Q8H [facility] Last Admin: 06/15/19 10:13 Dose: 166.667 mls/hr Ibuprofen (Motrin Tab*) 600 mg PO Q6H PRN PRN Reason: PAIN - MILD Methadone HCl (Dolophine Tab*) 70 mg PO DAILY@0600 [facility] Last Admin: 06/15/19 05:17 Dose: 70 mg Metronidazole (Flagyl Tab*) 500 mg PO BID [facility] Last Admin: 06/15/19 10:11 Dose: 500 mg Nicotine (Nicotine Patch 21 Mg/24 Hr*) 1 patch TRANSDERM DAILY@0800 [facility] Last Admin: 06/15/19 10:10 Dose: 1 patch Nicotine Polacrilex (Nicotine Lozenge Mini) 4 mg MT Q2H PRN PRN Reason: CRAVING Last Admin: 06/15/19 05:19 Dose: 4 mg Nicotine Polacrilex (Nicotine Gum*) 4 mg PO Q2H PRN PRN Reason: CRAVINGS Pharmacy Consult (Vancomycin Per Pharmacy*) 1 note FOLLOW UP .VANC PER PHARMACY [facility]; Protocol Pharmacy Profile Note (Nicotine Patch Removal Note*) 1 note PATCH OFF 2100 [facility] Pharmacy Profile Note (Vancomycin Trough Check) 1 note FOLLOW UP 929 ONE Stop: 06/16/19 09:31 Trazodone HCl (Desyrel Tab*) 100 mg PO BEDTIME [facility] Last Admin: 06/15/19 01:03 Dose: 100 mg Vital Signs - 8 hr 06/15/19 06/15/19 06/15/19 05:17 07:17 10:12 Respiratory 16 15 19 Rate Oxygen Devices in Use Now: None Appearance: Middle aged, white female, sitting upright in bed, appearing in NAD , somnolent at times but easily awakened Eyes: No Scleral Icterus, PERRLA Ears/Nose/Mouth/Throat: Mucous Membranes Moist Neck: - - Edema to submandibular space bilaterally, R>L, minimally tender to palpation Respiratory: Symmetrical Chest Expansion and Respiratory Effort, Clear to Auscultation Cardiovascular: NL Sounds; No Murmurs; No JVD, RRR Abdominal: - - abd soft, nontender, nondistended Lymphatic: - - anterior cervical and submandibular lymphadenopathy Extremities: No Edema, No Clubbing, Cyanosis Skin: No Rash or Ulcers Neurological: NL Muscle Strength and Tone, - - Somnolent but easily awakened and becomes alert enough to answer questions, but does fall asleep during questioning; oriented x3; speech clear Result Diagrams: 06/15/19 09:10 06/15/19 09:10 Diagnostic Imaging: CT Soft Tissue Neck Without Contrast FINDINGS: Sinuses: Multiple radicular cysts involving the maxillary first and second premolars and the remaining first and second molars. Additional radicular cyst right maxillary first molar. Multiple dental caries bilaterally are also noted. Small air fluid level with mucosal thickening left maxillary sinus. Minimal mucosal thickening right maxillary sinus. Nasopharynx: Normal. No mucosal masses or thickening. Oropharynx: See Soft Tissues Finding. Hypopharynx: Normal. No mucosal masses or thickening. Larynx: Normal. Normal epiglottis. Retropharyngeal space: Normal. No effusion. Submandibular/Parotid glands: Normal. Glands are normal in size. Thyroid: Normal. No enlarged or calcified nodules. Lymph nodes: Multiple reactive bilateral cervical chain lymph nodes including right level III node measuring 1.2 cm (series 2, image 54) and left level III node measuring 0.9 cm (series 2, image 58). Trachea: Visualized trachea is normal. Esophagus: Visualized esophagus is normal. Lungs: Normal as visualized. Bones/joints: Normal. No acute fracture. Soft tissues: Subcutaneous stranding along the right greater than left pre-mandibular soft tissues extending below the mandible and along the anterior neck. Stranding involves the bilateral submandibular, sublingual, carotid, and masseter spaces. Possible fluid collection along the tongue base which measures 3.2 x 2.5 x 2.5 cm (series 2/601, image 64/50). Single tiny focus of gas. IMPRESSION: 1. 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 2. Multiple dental caries and associated radicular cysts. Assess/Plan/Problems-Billing Assessment: - Patient Problems (1) Cellulitis and abscess of neck Current Visit: No Status: Acute Priority: High Code(s): L03.221 - CELLULITIS OF NECK; L02.11 - CUTANEOUS ABSCESS OF NECK SNOMED Code(s): 817585479 Comment: - No airway compromise - Afebrile, no leukocytosis - Dr. Cowan saw patient during last admission and recommended repeat imaging in 2 days - CT neck soft tissue w/contrast today without abscess. Dr. Cowan suspects the submandibular swelling is cellulitis secondary to worsening tooth abscess. Prevoius CT without contrast from prior admission written above - Discontinuing vancomycin considering source is likely dental abscess. Continue cefepime and flagyl - Blood cultures were never obtained prior to IV abx administration in prior admission. The utility of ordering them now would be low given that patient has received multiple doses of abx (2) LENY (acute kidney injury) Current Visit: Yes Status: Acute Code(s): N17.9 - ACUTE KIDNEY FAILURE, UNSPECIFIED SNOMED Code(s): 91339170 Comment: -Resolved -d/c fluids -Was likely prerenal in the setting of infection (3) Opiate dependence Current Visit: No Status: Acute Priority: Medium Code(s): F11.20 - OPIOID DEPENDENCE, UNCOMPLICATED SNOMED Code(s): 41509410 Comment: - Patient received 70 mg methadone this morning - Outpatient treatment through [facility]. Discussed over the phone today: patient is new to the program on 06/10/19 and has only received 3 days of treatment prior to coming here. She was receiving 50 mg methadone - Patient appears somnolent this morning and it is possible this dose of methadone is too high for her and will decrease dose to 50 mg (4) Tobacco abuse Current Visit: No Status: Acute Priority: Medium Code(s): Z72.0 - TOBACCO USE SNOMED Code(s): 679706310 Comment: -continue nicotine gum/lozenge -there were nursing concerns of patient smoking cigarettes in hospital in prior admission this week (5) Depression Current Visit: Yes Status: Acute Code(s): F32.9 - MAJOR DEPRESSIVE DISORDER , SINGLE EPISODE, UNSPECIFIED SNOMED Code(s): 03363668 Comment: -continue fluoxetine (6) DVT prophylaxis Current Visit: No Status: Acute Priority: Low Code(s): Z29.9 - ENCOUNTER FOR PROPHYLACTIC MEASURES, UNSPECIFIED SNOMED Code(s): 999742401 Comment: - Ambulation, Low Risk (7) Full code status Current Visit: No Status: Acute Code(s): Z78.9 - OTHER SPECIFIED HEALTH STATUS SNOMED Code(s): 060229634 Status and Disposition: SW involved due to difficulty disposition planning. Patient in unstable environment currently and unable to report to [facility] in [place] due to prior drug use. Pending patient's medical improvement tomorrow, she may be discharged to [facility] in [place], where she goes daily for the methadone program.
[2019-06-15] MEDS ORDERED: Iohexol 300* (CONTRAST) 10 ML SDV IV ONE (13:16)
[2019-06-15] MEDS: Nicotine Patch Removal NOTE PATCH OFF SCH (21:15)
[2019-06-15] MEDS: traZODone TAB* 100 MG PO SCH (22:18)
[2019-06-16] MEDS: Cefepime 1 GM in Dextrose(*) 1 GM/50 ML BAG IV SCH ×2 (00:38→11:04)
[2019-06-16] MEDS ORDERED: Lorazepam PYXIS KEY PRN (03:51)
[2019-06-16] MEDS ORDERED: LORazepam INJ* 2 MG/ML 1 ML VIAL ONE (03:53)
[2019-06-16] MEDS ORDERED: LORazepam INJ* 2 MG/ML 1 ML VIAL IV PUSH ONE (04:00)
[2019-06-16] MEDS: Methadone TAB* 10 MG PO SCH (05:09)
[2019-06-16] MEDS: metroNIDAZOLE TAB* 250 MG PO SCH ×2 (08:28→20:39)
[2019-06-16] MEDS: Gabapentin CAP(*) 400 MG PO SCH ×3 (08:28→20:45)
[2019-06-16] MEDS: FLUoxetine CAP* 20 MG PO SCH (08:29)
[2019-06-16] MEDS: Nicotine PATCH 21 MG/24 HR* PATCH TRANSDERM SCH (08:29)
[2019-06-16] MEDS ORDERED: Vancomycin Trough Check NOTE FOLLOW UP ONE (09:30)
--- NOTE | 2019-06-16 09:53 | PN ---
Subjective Date of Service: 06/16/19 Interval History: Patient had no acute events overnight. She reportedly expressed to the overnight nurse that she had interest in attending residential rehab. She remains interested in this today. She tells me the tenderness in her neck is unchanged overall. Denies fever/ chills, abd pain, difficulty breathing, and chest pain. She tells me she takes methadone because she experienced vomiting with both suboxone and subutex. Objective Active Medications: Fluoxetine HCl (Prozac Cap*) 40 mg PO DAILY [facility] Last Admin: 06/16/19 08:29 Dose: 40 mg Gabapentin (Neurontin Cap(*)) 800 mg PO TID [facility] Last Admin: 06/16/19 08:28 Dose: 800 mg Cefepime HCl (Maxipime 1 Gm In Dextrose Duplex (*)) 1 gm in 50 mls @ 100 mls/ hr IV Q12H [facility] Last Admin: 06/16/19 00:38 Dose: 100 mls/hr Ibuprofen (Motrin Tab*) 600 mg PO Q6H PRN PRN Reason: PAIN - MILD Methadone HCl (Dolophine Tab*) 50 mg PO DAILY@0600 [facility] Last Admin: 06/16/19 05:09 Dose: 50 mg Metronidazole (Flagyl Tab*) 500 mg PO BID [facility] Last Admin: 06/16/19 08:28 Dose: 500 mg Miscellaneous (Ativan Pyxis [place]) 1 ea N/A .PYXIS [place] PRN PRN Reason: PER PROTOCOL Nicotine (Nicotine Patch 21 Mg/24 Hr*) 1 patch TRANSDERM DAILY@0800 [facility] Last Admin: 06/16/19 08:29 Dose: 1 patch Nicotine Polacrilex (Nicotine Lozenge Mini) 4 mg MT Q2H PRN PRN Reason: CRAVING Last Admin: 06/15/19 05:19 Dose: 4 mg Nicotine Polacrilex (Nicotine Gum*) 4 mg PO Q2H PRN PRN Reason: CRAVINGS Pharmacy Profile Note (Nicotine Patch Removal Note*) 1 note PATCH OFF 2100 [facility] Last Admin: 06/15/19 21:15 Dose: Not Given Trazodone HCl (Desyrel Tab*) 100 mg PO BEDTIME [facility] Last Admin: 06/15/19 22:18 Dose: 100 mg Vital Signs - 8 hr 09/25/19 09/25/19 09/25/19 03:15 03:55 05:09 Temperature 97.7 F Pulse Rate 69 Respiratory 18 18 20 Rate Blood Pressure 130/68 (mmHg) O2 Sat by Pulse 99 Oximetry 06/16/19 06/16/19 06/16/19 05:18 07:15 07:46 Temperature 98.0 F Pulse Rate 66 Respiratory 18 16 16 Rate Blood Pressure 116/70 (mmHg) O2 Sat by Pulse 99 Oximetry 06/16/19 06/16/19 07:47 08:28 Temperature Pulse Rate Respiratory 16 16 Rate Blood Pressure (mmHg) O2 Sat by Pulse Oximetry Oxygen Devices in Use Now: None Appearance: Young, white female, sitting crosslegged in bed, appearing in NAD; very somnolent Eyes: No Scleral Icterus, PERRLA Ears/Nose/Mouth/Throat: Mucous Membranes Moist, - - dental caries; able to protrude tongue Neck: - - submandibular edema R>L which is tender to palpation Respiratory: Symmetrical Chest Expansion and Respiratory Effort, Clear to Auscultation Cardiovascular: NL Sounds; No Murmurs; No JVD, RRR Abdominal: - - abd soft, nontender, nondistended Extremities: No Edema, No Clubbing, Cyanosis Neurological: NL Muscle Strength and Tone, - - patient is oriented x3 but is quite somnolent. She easily awakes to voice Result Diagrams: 06/15/19 09:10 06/16/19 12:11 Assess/Plan/Problems-Billing Assessment: - Patient Problems (1) Cellulitis and abscess of neck Current Visit: No Status: Acute Priority: High Code(s): L03.221 - CELLULITIS OF NECK; L02.11 - CUTANEOUS ABSCESS OF NECK SNOMED Code(s): 463390729 Comment: - No airway compromise - Afebrile, no leukocytosis - Dr. Cowan saw patient during last admission - CT neck soft tissue w/contrast 06/15/[address] Cowan suspects the submandibular swelling is cellulitis secondary to worsening tooth abscess. Prevoius CT without contrast from prior admission written above - Continue cefepime and flagyl - Blood cultures were never obtained prior to IV abx administration in prior admission. The utility of ordering them now would be low given that patient has received multiple doses of abx (2) Altered mental status Current Visit: Yes Status: Acute Code(s): R41.82 - ALTERED MENTAL STATUS, UNSPECIFIED SNOMED Code(s): 628884804 Comment: -patient is quite somnolent during evaluation, even prior to methadone administration. Her administered methadone dose yesterday was 70 mg, and she receives 50 mg outpatient. She received 50mg today -CT brain without abnormality -I believe this is related to her dose of methadone being too high. She had only been on 3 days of methadone before presenting to the hospital initially, so it is possible that 50 mg is not the ideal dose for her. I am going to hold her dose tomorrow and we will observe if this resolves. If she starts to have withdrawal symptoms, then methadone can be restarted at a lower dose (3) Opiate dependence Current Visit: No Status: Acute Priority: Medium Code(s): F11.20 - OPIOID DEPENDENCE, UNCOMPLICATED SNOMED Code(s): 84762673 Comment: - Patient appears somnolent this morning even prior to administration of methadone - Methadone as above - SW involved to find residential drug rehabilitation for patient (4) Tobacco abuse Current Visit: No Status: Acute Priority: Medium Code(s): Z72.0 - TOBACCO USE SNOMED Code(s): 169474052 Comment: -continue nicotine gum/lozenge -there were nursing concerns of patient smoking cigarettes in hospital in prior admission this week (5) Depression Current Visit: Yes Status: Acute Code(s): F32.9 - MAJOR DEPRESSIVE DISORDER , SINGLE EPISODE, UNSPECIFIED SNOMED Code(s): 93244073 Comment: -continue fluoxetine (6) DVT prophylaxis Current Visit: No Status: Acute Priority: Low Code(s): Z29.9 - ENCOUNTER FOR PROPHYLACTIC MEASURES, UNSPECIFIED SNOMED Code(s): 433175949 Comment: - Ambulation, Low Risk (7) Full code status Current Visit: No Status: Acute Code(s): Z78.9 - OTHER SPECIFIED HEALTH STATUS SNOMED Code(s): 862371527 Status and Disposition: Pending residential drug and alcohol rehab placement
[2019-06-16 12:52] LABS: Potassium 4.3 mmol/L (3.5-5.0)
[2019-06-16 12:58] LABS: BUN/Creatinine Ratio 3.2 (8-20); EGFR African American 126.5 (>60); EGFR Non-African American 104.6 (>60)
[2019-06-16 13:01] LABS: Vancomycin Trough 7.9 mcg/mL
[2019-06-16] MEDS: Nicotine Patch Removal NOTE PATCH OFF SCH (20:43)
[2019-06-16] MEDS: traZODone TAB* 100 MG PO SCH (20:46)
[2019-06-16 21:13] LABS: Urine Appearance Cloudy; Urine Bacteria Absent (Absent); Urine Bilirubin Negative (Negative); Urine Blood 1+ (Negative); Urine Color Yellow; Urine Glucose Negative (Negative); Urine Ketones Negative (Negative); Urine Nitrite Negative (Negative); Urine Protein Negative (Negative); Urine Red Blood Cell Trace(0-2/hpf) (Absent); Urine Specific Gravity 1.011 (1.010-1.030); Urine Squamous Epithelial Cell Present (Absent); Urine Urobilinogen Negative (Negative); Urine White Blood Cell Trace(0-5/hpf) (Absent)
[2019-06-17] MEDS: Cefepime 1 GM in Dextrose(*) 1 GM/50 ML BAG IV SCH ×2 (00:24→11:48)
[2019-06-17] MEDS: Methadone TAB* 10 MG PO SCH (05:23)
[2019-06-17] MEDS: Nicotine PATCH 21 MG/24 HR* PATCH TRANSDERM SCH (08:04)
[2019-06-17] MEDS: metroNIDAZOLE TAB* 250 MG PO SCH ×2 (08:04→21:00)
[2019-06-17] MEDS: FLUoxetine CAP* 20 MG PO SCH (08:04)
[2019-06-17] MEDS: Gabapentin CAP(*) 400 MG PO SCH ×3 (08:04→20:59)
--- NOTE | 2019-06-17 14:49 | PN ---
Subjective Date of Service: 06/17/19 Interval History: Pt states she is "ducky" today. She is observed walking down halls talking loudly about recent sexual encounters. Despite being asked not to talk about this in the hallways, she continues. She is easily distracted and difficult to talk to. She does not participate in ROS; continues to states everything is "ducky." Objective Active Medications: Fluoxetine HCl (Prozac Cap*) 40 mg PO DAILY [facility] Gabapentin (Neurontin Cap(*)) 800 mg PO TID [facility] Cefepime HCl (Maxipime 1 Gm In Dextrose Duplex (*)) 1 gm in 50 mls @ 100 mls/ hr IV Q12H [facility] Ibuprofen (Motrin Tab*) 600 mg PO Q6H PRN Methadone HCl (Dolophine Tab*) 50 mg PO DAILY@0600 [facility] Metronidazole (Flagyl Tab*) 500 mg PO BID [facility] Miscellaneous (Ativan Pyxis [place]) 1 ea N/A .PYXIS [place] PRN Nicotine (Nicotine Patch 21 Mg/24 Hr*) 1 patch TRANSDERM DAILY@0800 [facility] Nicotine Polacrilex (Nicotine Lozenge Mini) 4 mg MT Q2H PRN Nicotine Polacrilex (Nicotine Gum*) 4 mg PO Q2H PRN Pharmacy Profile Note (Nicotine Patch Removal Note*) 1 note PATCH OFF 2100 [facility] Trazodone HCl (Desyrel Tab*) 100 mg PO BEDTIME [facility] Vital Signs: Temp Pulse Resp BP Pulse Ox 98.6 F 66 16 118/69 98 06/17/19 14:37 06/17/19 14:37 06/17/19 14:37 06/17/19 14:37 06/17/19 14:37 Oxygen Devices in Use Now: None Appearance: Pt is standing in room; she is fidgity and has difficulty focusing, answering questions. She is in no acute distress and appears to be in no pain. Eyes: No Scleral Icterus, PERRLA Ears/Nose/Mouth/Throat: NL Teeth, Lips, Gums, Clear Oropharnyx, Mucous Membranes Moist, - - Able to move jaw, talk without pain or difficulty Neck: NL Appearance and Movements; NL JVP, Trachea Midline Respiratory: Symmetrical Chest Expansion and Respiratory Effort, Clear to Auscultation Cardiovascular: NL Sounds; No Murmurs; No JVD, RRR, No Edema Extremities: No Edema, No Clubbing, Cyanosis Neurological: Alert and Oriented x 3 Result Diagrams: 06/15/19 09:10 06/16/19 12:11 Diagnostic Imaging: CT Soft Tissue Neck Without Contrast FINDINGS: Sinuses: Multiple radicular cysts involving the maxillary first and second premolars and the remaining first and second molars. Additional radicular cyst right maxillary first molar. Multiple dental caries bilaterally are also noted. Small air fluid level with mucosal thickening left maxillary sinus. Minimal mucosal thickening right maxillary sinus. Nasopharynx: Normal. No mucosal masses or thickening. Oropharynx: See Soft Tissues Finding. Hypopharynx: Normal. No mucosal masses or thickening. Larynx: Normal. Normal epiglottis. Retropharyngeal space: Normal. No effusion. Submandibular/Parotid glands: Normal. Glands are normal in size. Thyroid: Normal. No enlarged or calcified nodules. Lymph nodes: Multiple reactive bilateral cervical chain lymph nodes including right level III node measuring 1.2 cm (series 2, image 54) and left level III node measuring 0.9 cm (series 2, image 58). Trachea: Visualized trachea is normal. Esophagus: Visualized esophagus is normal. Lungs: Normal as visualized. Bones/joints: Normal. No acute fracture. Soft tissues: Subcutaneous stranding along the right greater than left pre-mandibular soft tissues extending below the mandible and along the anterior neck. Stranding involves the bilateral submandibular, sublingual, carotid, and masseter spaces. Possible fluid collection along the tongue base which measures 3.2 x 2.5 x 2.5 cm (series 2/601, image 64/50). Single tiny focus of gas. IMPRESSION: 1. 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 2. Multiple dental caries and associated radicular cysts. Assess/Plan/Problems-Billing Assessment: 44 yof PMHx IVDU, anxiety, depression presents with Trevon angina. - Patient Problems (1) Cellulitis of neck Comment: - No airway compromise - Afebrile, no leukocytosis - Dr. Cowan saw patient during last admission - CT neck soft tissue w/contrast 06/15/[address] Cowan suspects the submandibular swelling is cellulitis secondary to worsening tooth abscess. Previous CT without contrast from prior admission written above - Continue cefepime and flagyl - Blood cultures were never obtained prior to IV abx administration in prior admission. The utility of ordering them now would be low given that patient has received multiple doses of abx (2) Altered mental status Comment: -patient is quite somnolent during evaluation yesterday, even prior to methadone administration. Her administered methadone dose yesterday was 70 mg, and she receives 50 mg outpatient. She received 50mg starting 06/16 -CT brain without abnormality -I believe this is related to her dose of methadone being too high. She had been on methadone for 3 days before presenting to the hospital initially. -Today, patient is no longer somnolent; she is in fact hyperactive, having difficulty with focus, intermittently unable to answer questions/follow instructions -Psych consulted for evaluation (3) Opiate dependence Comment: - Patient alert, awake, hyperactive today - Methadone as above - SW involved to find residential drug rehabilitation for patient (4) Tobacco abuse Comment: -continue nicotine gum/lozenge -there were nursing concerns of patient smoking cigarettes in hospital at prior admission this week (5) Depression Comment: -continue fluoxetine (6) DVT prophylaxis Comment: - Ambulation, Low Risk (7) Full code status Status and Disposition: Pending residential drug and alcohol rehab placement.
[2019-06-17] MEDS: Nicotine Patch Removal NOTE PATCH OFF SCH (21:00)
[2019-06-17] MEDS: traZODone TAB* 100 MG PO SCH (21:00)
[2019-06-18] MEDS: Cefepime 1 GM in Dextrose(*) 1 GM/50 ML BAG IV SCH ×2 (00:30→13:50)
[2019-06-18] MEDS: Methadone TAB* 10 MG PO SCH (05:49)
[2019-06-18] MEDS: metroNIDAZOLE TAB* 250 MG PO SCH ×2 (11:25→21:58)
[2019-06-18] MEDS: Gabapentin CAP(*) 400 MG PO SCH ×3 (11:25→21:59)
[2019-06-18] MEDS: Nicotine PATCH 21 MG/24 HR* PATCH TRANSDERM SCH (11:27)
[2019-06-18] MEDS: FLUoxetine CAP* 20 MG PO SCH (11:28)
--- NOTE | 2019-06-18 14:29 | PN ---
Subjective Date of Service: 06/18/19 Interval History: Pt states she is eating and drinking without difficulty. She has no complaints today. She is intermittently falling asleep while sitting up during our conversations; when asked why she is falling asleep, she asks "why is everyone asking me that? I'm not falling asleep!" She has no complaints at this time. Objective Active Medications: Fluoxetine HCl (Prozac Cap*) 40 mg PO DAILY DAWIT Gabapentin (Neurontin Cap(*)) 800 mg PO TID DAWIT Cefepime HCl (Maxipime 1 Gm In Dextrose Duplex (*)) 1 gm in 50 mls @ 100 mls/ hr IV Q12H DAWIT Ibuprofen (Motrin Tab*) 600 mg PO Q6H PRN Methadone HCl (Dolophine Tab*) 50 mg PO DAILY@0600 DAWIT Metronidazole (Flagyl Tab*) 500 mg PO BID DAWIT Miscellaneous (Ativan Pyxis [place]) 1 ea N/A .PYXIS [place] PRN Nicotine (Nicotine Patch 21 Mg/24 Hr*) 1 patch TRANSDERM DAILY@0800 [facility] Nicotine Polacrilex (Nicotine Lozenge Mini) 4 mg MT Q2H PRN Nicotine Polacrilex (Nicotine Gum*) 4 mg PO Q2H PRN Pharmacy Profile Note (Nicotine Patch Removal Note*) 1 note PATCH OFF 2100 [facility] Trazodone HCl (Desyrel Tab*) 100 mg PO BEDTIME [facility] Vital Signs: Temp Pulse Resp BP Pulse Ox 98.1 F 70 13 112/53 95 06/18/19 11:15 06/18/19 15:15 06/18/19 17:20 06/18/19 15:15 06/18/19 15:15 Oxygen Devices in Use Now: None Appearance: Pt is sitting at edge of bed, legs crossed; intermittently dozing, and wakes to me calling her name. She is intermittently somnolent and occasionally aggitated. Eyes: No Scleral Icterus, PERRLA Ears/Nose/Mouth/Throat: NL Teeth, Lips, Gums, Clear Oropharnyx, Mucous Membranes Moist Neck: NL Appearance and Movements; NL JVP, Trachea Midline, - - Firm submandibular space; mildly tender to palpation. Respiratory: Symmetrical Chest Expansion and Respiratory Effort, Clear to Auscultation Cardiovascular: NL Sounds; No Murmurs; No JVD, RRR Abdominal: NL Sounds; No Tenderness; No Distention, No Hepatosplenomegaly Extremities: No Clubbing, Cyanosis, - - b/l trace UE edema Neurological: Alert and Oriented x 3 Result Diagrams: 06/15/19 09:10 06/16/19 12:11 Microbiology and Other Data: Microbiology 06/16/19 20:19 Urine Culture - Final Urine No Growth (<1,000 CFU/mL) Diagnostic Imaging: CT Soft Tissue Neck Without Contrast FINDINGS: Sinuses: Multiple radicular cysts involving the maxillary first and second premolars and the remaining first and second molars. Additional radicular cyst right maxillary first molar. Multiple dental caries bilaterally are also noted. Small air fluid level with mucosal thickening left maxillary sinus. Minimal mucosal thickening right maxillary sinus. Nasopharynx: Normal. No mucosal masses or thickening. Oropharynx: See Soft Tissues Finding. Hypopharynx: Normal. No mucosal masses or thickening. Larynx: Normal. Normal epiglottis. Retropharyngeal space: Normal. No effusion. Submandibular/Parotid glands: Normal. Glands are normal in size. Thyroid: Normal. No enlarged or calcified nodules. Lymph nodes: Multiple reactive bilateral cervical chain lymph nodes including right level III node measuring 1.2 cm (series 2, image 54) and left level III node measuring 0.9 cm (series 2, image 58). Trachea: Visualized trachea is normal. Esophagus: Visualized esophagus is normal. Lungs: Normal as visualized. Bones/joints: Normal. No acute fracture. Soft tissues: Subcutaneous stranding along the right greater than left pre-mandibular soft tissues extending below the mandible and along the anterior neck. Stranding involves the bilateral submandibular, sublingual, carotid, and masseter spaces. Possible fluid collection along the tongue base which measures 3.2 x 2.5 x 2.5 cm (series 2/601, image 64/50). Single tiny focus of gas. IMPRESSION: 1. 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 2. Multiple dental caries and associated radicular cysts. Assess/Plan/Problems-Billing Assessment: 44 yof PMHx IVDU, anxiety, depression presents with Trevon angina. - Patient Problems (1) Cellulitis of neck Comment: - No airway compromise; swallowing, jaw movement intact - Afebrile, no leukocytosis - Dr. Cowan saw patient during last admission - CT neck soft tissue w/contrast 06/15/[address] Cowan suspects the submandibular swelling is cellulitis secondary to worsening tooth abscess. Previous CT without contrast from prior admission written above - Continue cefepime and flagyl - Blood cultures were never obtained prior to IV abx administration in prior admission. The utility of ordering them now would be low given that patient has received multiple doses of abx -CRP improving (2) Altered mental status Comment: -Pt intermittently somnolent, aggitated when woken up -Pt on methadone; dose at admission was 70 mg, and she receives 50 mg outpatient. -She received 50mg starting 06/16 -CT brain without abnormality -This could be related to initial dose of methadone being too high; there is some concern that the patient is continuing to use illicit drugs while inpatient ; she was positive for cocaine in UDS after leaving AMA 06/14 and returning appx 5h later -Psych consulted for evaluation (3) Opiate dependence Comment: - Methadone 50 daily - SW involved to find residential drug rehabilitation for patient (4) Tobacco abuse Comment: -continue nicotine gum/lozenge -there were nursing concerns of patient smoking cigarettes in hospital at prior admission this week (5) Depression Comment: -continue fluoxetine (6) DVT prophylaxis Comment: - Ambulation, Low Risk (7) Full code status Status and Disposition: Pending residential drug and alcohol rehab placement.
--- NOTE | 2019-06-18 15:15 | CONS ---
CONSULTATION REPORT: DATE OF CONSULT: 06/18/19 ATTENDING PHYSICIAN: VERONICA Breaux CONSULTING PHYSICIAN: Dr. Mookie Ansari. REASON FOR CONSULT: Agitated unpredictable behavior on the unit. SUBJECTIVE HISTORY: Debi is a 44-year-old white female who currently lives with her boyfri gus, who has a history of affective problems and 2 previous remote [facility] admissions as well as signific ant polysubstance misuse, who was readmitted to the fourth floor medical service on 06/14/19, after briefly leaving AMA and presumably using drugs. Her behavior since readmission has been labil e, vacillating between somnolence, hyperkinesis, and irritability. There is a sense that perhaps she is using contraband substances in her room and visitation restrictions, room search, and stat UDS ribera d been advised. The primary team is concerned about her behavior and was not sure whether these find ings might be attributable perhaps to a primary mental illness. My understanding is that on the morn ing of consultation, she was initially seen by psychiatrist, Dr. Cr Richards, but the patient was ag itated, demanding that he leave her room and actually chasing him into the hallway. Later, she was s een by Dr. Ansari, and at this time, she is somnolent with eyes drooping and falls asleep several time s during our conversation. When she is able to interact, she seems defensive, paranoid, and hostile, claiming that we are "pressuring her." She is upset that staff will not allow her to use the bathro om because of the concerns that she perhaps has brought contraband drugs. At one point during this h ospitalization, cigarette smoke was smelled in her bathroom. She lives with her boyfriend who had co me to the hospital when she left AMA, but it is uncertain whether he has been back. I also understan d that the patient is actively receiving treatment at the [facility] through [facility] in [place] where she travels in a Medicaid cab 6 times per week. Currently, she denies being homeless, but when she was asked by Social Work whether she would be agreeable to inpatient substance abuse re hab, she stated yes. My understanding is that during her initial hospitalization on the 06/13/19, ur ine drug screen was for some reason not done; however, when she is readmitted 3 hours after discharge on the 06/14/19, she had cocaine and cannabis in her system. When I asked the patient about drugs, she does admit that she smoked cocaine a couple days ago and last used heroin on 06/09/19. The patient cannot give me much history, so this clinician relies significantly on the existing [facility] record to complete the assessment. She denies suicidal or homicidal ideations at this time. PAST PSYCHIATRIC HISTORY: The patient has 2 previous psychiatric admissions on the B[facility]. She had an ibuprofen overdose in 2000 after the breakup with her of 5 years. Later in 2012, she had an overdose of an unknown substance. She denies being active in mental health services, although at one point she went to the [facility] where she took Prozac and Lamictal for PT SD and major depression. She has also been treated with Paxil. The patient has 2 suicide attempts i n 2000 and 2012, which she attributes to "looking for attention." SUBSTANCE ABUSE HISTORY: Significant for cocaine and IV heroin abuse. She has a remote history of a lcohol abuse and she tends to smoke cannabis chronically. Currently, she is in the methadone program at [facility] in [place]. PAST MEDICAL HISTORY: Significant for appendectomy, tubal ligation, right salpingectomy, left arm glynn rgery. MEDICATIONS: Outpatient medications had included: 1. Trazodone 100 mg nightly. 2. Ibuprofen for pain. 3. Methadone 50 mg daily. ALLERGIES: She is allergic to BEES, PENICILLIN, SHELLFISH, and SOAP. FAMILY HISTORY: Noncontributing. SOCIAL HISTORY: The patient has always lived in the [facility]. Her father is . She is es tranged from her mother and 2 siblings. She has 3 children, all in their 20s from 2 different father s. She was for 5 years in her early 20s. Currently lives with a boyfriend. It is unclear w hether she works or how she makes money for herself. She has never been in the and it is un certain what her legal history might be. MENTAL STATUS EXAM: The patient is a middle-aged white female who is disheveled and malodorous, wear ing a patient gown. She has curly blonde hair, is somnolent, falling asleep at times, but is other t imes hostile and uncooperative. Speech is slurred at times. Mood appears to be irritable with a lab ile affect. Thought process is disorganized and she has difficulty putting together coherent thought s. Thought content is significant for her desire to be left alone by this clinician. She is denying s uicidal or homicidal ideations. She denies auditory or visual hallucinations. Insight and judgment are markedly poor given her recent AMA discharge from the hospital so that she could use substances o f abuse. Cognitively, she is lethargic and somnolent. DIAGNOSES: [place] I: Cocaine use disorder, cannabis use disorder, opioid use disorder, posttraumatic s tress disorder by history, major depression by history. [place] II: Deferred. IMPRESSION: The patient is a 44-year-old white female with a history of affective problems and 2 previous remote BSU admissions as well as significant polysubstance misuse who is now readmitte d to the fourth floor medical service after briefly leaving [place] on 06/14/19, presumably to [employer] e drugs. Since readmission, her behavior has been labile, vacillating between somnolence, hyperkines is, and irritability. There remains the strong suspicion that somehow she is using contraband drugs of abuse in her room, although we have no overt evidence of this. RECOMMENDATIONS TO PRIMARY TEAM: Psychiatry recommends that the patient remain on close supervision by staff and that we restrict visitation. We recommend further searching of her room and a stat urin e drug screen to rule out whether she has been taking anything while admitted here. Given the fact t hat her most recent cocaine use was on Friday, these metabolites should be out of her system by now, so if she continues to test positive for cocaine, it would seem likely that she is using this during hospitalization. I do think that the ultimate trajectory for this patient should be inpatient rehabi litation, which she is agreeable to at this time. Social Work has already been consulted and are loo ermias to make this referral. In the meantime, Psychiatry will continue to follow. I will sign the ca se out to the weekend psychiatrist so that she is seen at least once. This clinician will return to service on 06/21/19, to continue care. [id number]/[facility] #: [id number]
[2019-06-18 21:41] LABS: Urine Benzodiazepine Screen None Detected (None Detect); Urine Opiates Screen None Detected (None Detect)
[2019-06-18] MEDS: traZODone TAB* 100 MG PO SCH (21:56)
[2019-06-18] MEDS ORDERED: Lorazepam PYXIS KEY PRN (22:16)
[2019-06-18] MEDS ORDERED: LORazepam INJ* 2 MG/ML 1 ML VIAL IV PUSH PRN (22:16)
[2019-06-18] MEDS: Nicotine Patch Removal NOTE PATCH OFF SCH (22:56)
[2019-06-19] MEDS: Cefepime 1 GM in Dextrose(*) 1 GM/50 ML BAG IV SCH ×3 (00:34→15:57)
[2019-06-19] MEDS: LORazepam TAB(*) 1 MG PO PRN (00:48)
[2019-06-19 10:53] LABS: Hematocrit 44 % (35-47); Hemoglobin 14.2 g/dL (12.0-16.0); Mean Corpuscular HGB Conc 33 g/dL (31-36); Mean Corpuscular Hemoglobin 30 pg (27-31); Mean Corpuscular Volume 92 fL (80-97); Mean Platelet Volume 9.1 fL (7.4-10.4); Platelet Count 246 10^3/uL (150-450); Red Blood Count 4.71 10^6 /uL (3.70-4.87); Red Cell Distribution Width 13 % (10-15); White Blood Count 5.7 10^3/uL (3.5-10.8)
[2019-06-19] MEDS: Methadone TAB* 10 MG PO SCH ×2 (10:56→11:18)
[2019-06-19] MEDS: Nicotine PATCH 21 MG/24 HR* PATCH TRANSDERM SCH (10:56)
[2019-06-19] MEDS: metroNIDAZOLE TAB* 250 MG PO SCH ×2 (10:58→22:14)
[2019-06-19] MEDS: Gabapentin CAP(*) 400 MG PO SCH ×3 (10:58→22:14)
[2019-06-19] MEDS: FLUoxetine CAP* 20 MG PO SCH (10:58)
[2019-06-19 11:08] LABS: BUN/Creatinine Ratio 4.3 (8-20); Calcium 9.3 mg/dL (8.6-10.3); EGFR African American 111.8 (>60); EGFR Non-African American 92.4 (>60); Potassium 4.3 mmol/L (3.5-5.0)
--- NOTE | 2019-06-19 11:44 | PN ---
Subjective Date of Service: 06/19/19 Interval History: Called by nursing to assess patient today, as she was agitated, demanding an increase in her methadone. Seen and pt states she must go up by 10mg/day or she fears she will get kicked out of the program. Called Tasha, who states that patient's current dose is 50 and she can be titrated prn withdrawal symptoms. This was discussed with patient, and she understands and is agreeable to 50mg daily dose. She continues to request inpatient rahab for substance abuse. She c/o submandibular tenderness. She has no other complaints today. Objective Active Medications: Fluoxetine HCl (Prozac Cap*) 40 mg PO DAILY DAWIT Gabapentin (Neurontin Cap(*)) 800 mg PO TID DAWIT Cefepime HCl (Maxipime 1 Gm In Dextrose Duplex (*)) 1 gm in 50 mls @ 100 mls/ hr IV Q12H DAWIT Ibuprofen (Motrin Tab*) 600 mg PO Q6H PRN Lorazepam (Ativan Inj*) 1 mg IV PUSH Q6H PRN Lorazepam (Ativan Tab(*)) 1 mg PO Q6H PRN Methadone HCl (Dolophine Tab*) 50 mg PO DAILY@0600 DAWIT Metronidazole (Flagyl Tab*) 500 mg PO BID DAWIT Miscellaneous (Ativan Pyxis [place]) 1 ea N/A .ATIVAN IV [place] PRN Nicotine (Nicotine Patch 21 Mg/24 Hr*) 1 patch TRANSDERM DAILY@0800 DAW[facility] Nicotine Polacrilex (Nicotine Lozenge Mini) 4 mg MT Q2H PRN Nicotine Polacrilex (Nicotine Gum*) 4 mg PO Q2H PRN Pharmacy Profile Note (Nicotine Patch Removal Note*) 1 note PATCH OFF 2100 DAWIT Trazodone HCl (Desyrel Tab*) 100 mg PO BEDTIME [facility] Vital Signs: Temp Pulse Resp BP Pulse Ox 98.1 F 62 20 98/51 94 06/18/19 23:37 06/18/19 23:37 06/19/19 11:18 06/18/19 23:37 06/18/19 23:37 Oxygen Devices in Use Now: None Appearance: Pt is intermittently agitated, appears overall groggy. She is in no acute distress. Eating breakfast. Eyes: No Scleral Icterus, PERRLA Ears/Nose/Mouth/Throat: NL Teeth, Lips, Gums, Clear Oropharnyx, Mucous Membranes Moist, - - Submandibular firmness, R>L; tender to palpation; able to talk, swallow, breathing comfortably Neck: NL Appearance and Movements; NL JVP, Trachea Midline Respiratory: Symmetrical Chest Expansion and Respiratory Effort, Clear to Auscultation Cardiovascular: NL Sounds; No Murmurs; No JVD, RRR, - - trace peripheral edema UE, LE b/l Abdominal: NL Sounds; No Tenderness; No Distention, No Hepatosplenomegaly Extremities: No Clubbing, Cyanosis Neurological: Alert and Oriented x 3 Result Diagrams: 06/19/19 10:45 06/19/19 10:45 Microbiology and Other Data: Microbiology 06/16/19 20:19 Urine Culture - Final Urine No Growth (<1,000 CFU/mL) Diagnostic Imaging: CT Soft Tissue Neck Without Contrast FINDINGS: Sinuses: Multiple radicular cysts involving the maxillary first and second premolars and the remaining first and second molars. Additional radicular cyst right maxillary first molar. Multiple dental caries bilaterally are also noted. Small air fluid level with mucosal thickening left maxillary sinus. Minimal mucosal thickening right maxillary sinus. Nasopharynx: Normal. No mucosal masses or thickening. Oropharynx: See Soft Tissues Finding. Hypopharynx: Normal. No mucosal masses or thickening. Larynx: Normal. Normal epiglottis. Retropharyngeal space: Normal. No effusion. Submandibular/Parotid glands: Normal. Glands are normal in size. Thyroid: Normal. No enlarged or calcified nodules. Lymph nodes: Multiple reactive bilateral cervical chain lymph nodes including right level III node measuring 1.2 cm (series 2, image 54) and left level III node measuring 0.9 cm (series 2, image 58). Trachea: Visualized trachea is normal. Esophagus: Visualized esophagus is normal. Lungs: Normal as visualized. Bones/joints: Normal. No acute fracture. Soft tissues: Subcutaneous stranding along the right greater than left pre-mandibular soft tissues extending below the mandible and along the anterior neck. Stranding involves the bilateral submandibular, sublingual, carotid, and masseter spaces. Possible fluid collection along the tongue base which measures 3.2 x 2.5 x 2.5 cm (series 2/601, image 64/50). Single tiny focus of gas. IMPRESSION: 1. 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 2. Multiple dental caries and associated radicular cysts. Assess/Plan/Problems-Billing Assessment: 44 yof PMHx IVDU, anxiety, depression presents with Trevon angina. - Patient Problems (1) Cellulitis of neck Comment: - No airway compromise; swallowing, jaw movement intact; continues to have firmness, tenderness to submandibular region - Afebrile, no leukocytosis; CRP trending down - Dr. Cowan saw patient during last admission - CT neck soft tissue w/contrast 06/15/[address] Cowan suspects the submandibular swelling is cellulitis secondary to worsening tooth abscess. Previous CT without contrast from prior admission written above - Continue cefepime and flagyl - Blood cultures were never obtained prior to IV abx administration in prior admission. The utility of ordering them now would be low given that patient has received multiple doses of abx (2) Altered mental status Comment: -Pt intermittently somnolent, aggitated when woken up -Pt on methadone; dose at admission was 70 mg, and she receives 50 mg outpatient. -She received 50mg starting 06/16; this is her home dose, per clinic at [place] -CT brain without abnormality -UDS + cannabis, cocaine on day 1 and day 4 of this hospital admission -Psych consulted for evaluation; will continue to follow (3) Opiate dependence Comment: - Methadone 50 daily - SW involved to find residential drug rehabilitation for patient (4) Tobacco abuse Comment: -continue nicotine gum/lozenge -there were nursing concerns of patient smoking cigarettes in hospital at prior admission this week (5) Depression Comment: -continue fluoxetine (6) DVT prophylaxis Comment: - Ambulation, Low Risk (7) Full code status Status and Disposition: Pending residential drug and alcohol rehab placement.
[2019-06-19] MEDS: Nicotine Patch Removal NOTE PATCH OFF SCH (22:15)
[2019-06-19] MEDS: traZODone TAB* 100 MG PO SCH (22:16)
[2019-06-20] MEDS: Cefepime 1 GM in Dextrose(*) 1 GM/50 ML BAG IV SCH ×2 (03:25→15:58)
[2019-06-20] MEDS: Methadone TAB* 10 MG PO SCH (05:59)
[2019-06-20] MEDS: FLUoxetine CAP* 20 MG PO SCH (09:14)
[2019-06-20] MEDS: metroNIDAZOLE TAB* 250 MG PO SCH ×2 (09:14→23:54)
[2019-06-20] MEDS: Nicotine PATCH 21 MG/24 HR* PATCH TRANSDERM SCH (09:15)
[2019-06-20] MEDS: Gabapentin CAP(*) 400 MG PO SCH ×3 (09:15→23:54)
[2019-06-20] MEDS: LORazepam TAB(*) 1 MG PO PRN (13:06)
[2019-06-20] MEDS ORDERED: LORazepam TAB(*) 0.5 MG PO PRN (13:48)
--- NOTE | 2019-06-20 14:28 | CONSULT ---
Consult Consult: Went to see Debi as plannedX2 since this afternoon. Debi appears to be in very good mood, somewhat pressured but logical and goal oriented. Says she was up all night and helped the night nurse.She still feels energetic and appears hyperactive. Excited about the plan to go to an inpatient rehab in [place]. Denies any psychotic or manic symptoms. Also denies suicidal or homicidal ideation. Finally, she handed over a needle probe/Catheter she says she found in the room which was given to the RN in charge for proper disposal. Debi is a 44 y/o appropriately dressed and neatly groomed WF who appears somewhat somnolent but with steady gait, oriented to time, place and person. Describes her mood as Good and observed affect is bright and euphoric. Denies hallucinations, delusions, SI or HI. Insight and judgment fair. Patient at this time is psychiatrically stable and has the mental capacity to make an informed medical and disposition decision. Plan is to continue current treatments and after care plans and to consult with BSU if needed.
--- NOTE | 2019-06-20 16:17 | PN ---
Subjective Date of Service: 06/20/19 Interval History: Pt states she is doing well today. She continues to have submandibular tenderness, but no difficulty eating, swallowing, no shortness of breath or difficulty with breathing. She continues to express interest in inpatient rehab. She c/o edema in b/l legs and UE which has worsened over last approximately 2 days. She has no other complaints today. Objective Active Medications: Fluoxetine HCl (Prozac Cap*) 40 mg PO DAILY DAWIT Gabapentin (Neurontin Cap(*)) 800 mg PO TID DAWIT Cefepime HCl (Maxipime 1 Gm In Dextrose Duplex (*)) 1 gm in 50 mls @ 100 mls/ hr IV Q12H DAWIT Ibuprofen (Motrin Tab*) 600 mg PO Q6H PRN Lorazepam (Ativan Tab(*)) 0.5 mg PO Q6H PRN Methadone HCl (Dolophine Tab*) 40 mg PO DAILY@0600 DAWIT Metronidazole (Flagyl Tab*) 500 mg PO BID DAWIT Nicotine (Nicotine Patch 21 Mg/24 Hr*) 1 patch TRANSDERM DAILY@0800 [facility] Nicotine Polacrilex (Nicotine Lozenge Mini) 4 mg MT Q2H PRN Nicotine Polacrilex (Nicotine Gum*) 4 mg PO Q2H PRN Pharmacy Profile Note (Nicotine Patch Removal Note*) 1 note PATCH OFF 2100 DAWIT Trazodone HCl (Desyrel Tab*) 100 mg PO BEDTIME [facility] Vital Signs: Temp Pulse Resp BP Pulse Ox 98.4 F 67 18 115/67 95 06/20/19 15:15 06/20/19 15:15 06/20/19 15:57 06/20/19 15:15 06/20/19 15:15 Oxygen Devices in Use Now: None Appearance: Pt is sitting up in bed, occasionally drifts to sleep, but wakes easily. Eating breakfast. She is calm, cooperative. She is in no acute distress. Eyes: No Scleral Icterus, PERRLA Ears/Nose/Mouth/Throat: NL Teeth, Lips, Gums, Clear Oropharnyx, Mucous Membranes Moist Neck: Trachea Midline, - - Submandibular area firm, R>L; tender to palpation Respiratory: Symmetrical Chest Expansion and Respiratory Effort, Clear to Auscultation Cardiovascular: NL Sounds; No Murmurs; No JVD, RRR Extremities: No Clubbing, Cyanosis, - - B/l UE, LE nonpitting edema. Neurological: Alert and Oriented x 3 Result Diagrams: 06/19/19 10:45 06/19/19 10:45 Microbiology and Other Data: Microbiology 06/16/19 20:19 Urine Culture - Final Urine No Growth (<1,000 CFU/mL) Diagnostic Imaging: CT Soft Tissue Neck Without Contrast FINDINGS: Sinuses: Multiple radicular cysts involving the maxillary first and second premolars and the remaining first and second molars. Additional radicular cyst right maxillary first molar. Multiple dental caries bilaterally are also noted. Small air fluid level with mucosal thickening left maxillary sinus. Minimal mucosal thickening right maxillary sinus. Nasopharynx: Normal. No mucosal masses or thickening. Oropharynx: See Soft Tissues Finding. Hypopharynx: Normal. No mucosal masses or thickening. Larynx: Normal. Normal epiglottis. Retropharyngeal space: Normal. No effusion. Submandibular/Parotid glands: Normal. Glands are normal in size. Thyroid: Normal. No enlarged or calcified nodules. Lymph nodes: Multiple reactive bilateral cervical chain lymph nodes including right level III node measuring 1.2 cm (series 2, image 54) and left level III node measuring 0.9 cm (series 2, image 58). Trachea: Visualized trachea is normal. Esophagus: Visualized esophagus is normal. Lungs: Normal as visualized. Bones/joints: Normal. No acute fracture. Soft tissues: Subcutaneous stranding along the right greater than left pre-mandibular soft tissues extending below the mandible and along the anterior neck. Stranding involves the bilateral submandibular, sublingual, carotid, and masseter spaces. Possible fluid collection along the tongue base which measures 3.2 x 2.5 x 2.5 cm (series 2/601, image 64/50). Single tiny focus of gas. IMPRESSION: 1. 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 2. Multiple dental caries and associated radicular cysts. Assess/Plan/Problems-Billing Assessment: 44 yof PMHx IVDU, anxiety, depression presents with Trevon angina. - Patient Problems (1) Cellulitis of neck Comment: - No airway compromise; swallowing, jaw movement intact; continues to have firmness, tenderness to submandibular region - Afebrile, no leukocytosis; CRP trending down - Dr. Cowan saw patient during last admission - CT neck soft tissue w/contrast 06/15/[address] Cowan suspects the submandibular swelling is cellulitis secondary to worsening tooth abscess. Previous CT without contrast from prior admission written above - Continue cefepime and flagyl - Blood cultures were never obtained prior to IV abx administration in prior admission. The utility of ordering them now would be low given that patient has received multiple doses of abx (2) Altered mental status Comment: -Pt intermittently somnolent, aggitated, hyperactive -Pt on methadone; dose at admission was 70 mg, and she receives 50 mg outpatient. -CT brain without abnormality -Methadone 50mg starting 06/16; this is her home dose, per clinic at [place] -Will decrease to 40mg 06/21 and monitor -D/c ativan -UDS + cannabis, cocaine on day 1 and day 4 of this hospital admission -Psych consulted for evaluation; will continue to follow (3) Edema Comment: -B/l UE, LE nonpitting edema -Estimated urinary protein excretion 0.1g/d, WNL- low suspicion for nephrotic syndrome -Low suspicion for DVT, as this is occurring in all extremities -Suspect lymphedema -Wrap UE, LE as tolerated; TEDS (4) Opiate dependence Comment: - Methadone 50 daily; decrease to 40 daily starting tomorrow - SW involved to find residential drug rehabilitation for patient (5) Tobacco abuse Comment: -continue nicotine gum/lozenge -there were nursing concerns of patient smoking cigarettes in hospital at prior admission this week (6) Depression Comment: -continue fluoxetine (7) DVT prophylaxis Comment: - Ambulation, Low Risk (8) Full code status Status and Disposition: Pending residential drug and alcohol rehab placement.
[2019-06-20] MEDS: Ibuprofen TAB* 600 MG PO PRN (23:53)
[2019-06-20] MEDS: traZODone TAB* 100 MG PO SCH (23:58)
[2019-06-21] MEDS: Nicotine Patch Removal NOTE PATCH OFF SCH ×2 (00:23→19:44)
[2019-06-21 01:44] LABS: Adulterants Comment Normal; Creatinine, Urine 70.1 mg/dL; Fentanyl, Ur Not Detected ng/mL (Cutoff: 2); Hydrocodone, Ur Not Detected ng/mL (Cutoff: 25); Hydromorphone, Ur Not Detected ng/mL (Cutoff: 25); Morphine, Ur Not Detected ng/mL (Cutoff: 25); Norfentanyl, Ur Not Detected ng/mL (Cutoff: 2); Norhydrocodone, Ur Not Detected ng/mL (Cutoff: 25); Noroxycodone, Ur Not Detected ng/mL (Cutoff: 25); Oxycodone, Ur Not Detected ng/mL (Cutoff: 25); Specific Gravity 1.015; Tramadol, Ur Not Detected ng/mL (Cutoff: 25); Urine Barbiturates Negative; Urine Benzodiazepines Negative; Urine Cocaine Presumptive Positive ng/mL; Urine Phencyclidine Negative ng/mL (Cutoff: 25); Urine Tetrahydrocannabinol Presumptive Positive ng/mL (Cutoff: 50)
[2019-06-21] MEDS: Cefepime 1 GM in Dextrose(*) 1 GM/50 ML BAG IV SCH ×3 (03:02→16:05)
[2019-06-21] MEDS: Methadone TAB* 10 MG PO SCH (05:56)
[2019-06-21] MEDS: metroNIDAZOLE TAB* 250 MG PO SCH (10:42)
[2019-06-21] MEDS: FLUoxetine CAP* 20 MG PO SCH (10:42)
[2019-06-21] MEDS: Nicotine PATCH 21 MG/24 HR* PATCH TRANSDERM SCH (10:43)
[2019-06-21] MEDS: Gabapentin CAP(*) 400 MG PO SCH ×3 (10:43→19:45)
--- NOTE | 2019-06-21 10:58 | PN ---
Subjective Date of Service: 06/21/19 Interval History: Pt is sleeping when I enter. She wakes easily, but is intermittently agitated. She continues to have UE, LE edema that is tender, but she notes improvement in both pain and extent of edema. She had a BM 2 days ago. She is eating, drinking, swallowing, breathing without difficulty; she does continue to have submandibular tenderness. Objective Active Medications: Fluoxetine HCl (Prozac Cap*) 40 mg PO DAILY DAWIT Gabapentin (Neurontin Cap(*)) 800 mg PO TID DAWIT Cefepime HCl (Maxipime 1 Gm In Dextrose Duplex (*)) 1 gm in 50 mls @ 100 mls/ hr IV Q12H DAWIT Ibuprofen (Motrin Tab*) 600 mg PO Q6H PRN Lorazepam (Ativan Tab(*)) 0.5 mg PO Q6H PRN Methadone HCl (Dolophine Tab*) 40 mg PO DAILY@0600 [facility] Metronidazole (Flagyl Tab*) 500 mg PO BID DAWIT Nicotine (Nicotine Patch 21 Mg/24 Hr*) 1 patch TRANSDERM DAILY@0800 [facility] Nicotine Polacrilex (Nicotine Lozenge Mini) 4 mg MT Q2H PRN Nicotine Polacrilex (Nicotine Gum*) 4 mg PO Q2H PRN Pharmacy Profile Note (Nicotine Patch Removal Note*) 1 note PATCH OFF 2100 DAWIT Trazodone HCl (Desyrel Tab*) 100 mg PO BEDTIME [facility] Vital Signs: Temp Pulse Resp BP Pulse Ox 97.5 F 60 18 116/71 97 06/21/19 03:15 06/21/19 03:15 06/21/19 10:43 06/21/19 03:15 06/21/19 03:15 Oxygen Devices in Use Now: None Appearance: Pt is sleeping when I enter; she wakes easily; intermittently agitated/somnolent. She is in no acute distress. Eyes: No Scleral Icterus, PERRLA Ears/Nose/Mouth/Throat: NL Teeth, Lips, Gums, Clear Oropharnyx, Mucous Membranes Moist, - - Submandibular firmness larger on R>L; tender to palpation Respiratory: Symmetrical Chest Expansion and Respiratory Effort, Clear to Auscultation Cardiovascular: NL Sounds; No Murmurs; No JVD, RRR, - - Nonpitting edema to UE LE b/l Abdominal: NL Sounds; No Tenderness; No Distention, No Hepatosplenomegaly Extremities: No Clubbing, Cyanosis Neurological: Alert and Oriented x 3 Result Diagrams: 06/21/19 15:57 06/21/19 15:57 Microbiology and Other Data: Microbiology 06/16/19 20:19 Urine Culture - Final Urine No Growth (<1,000 CFU/mL) Diagnostic Imaging: CT Soft Tissue Neck Without Contrast FINDINGS: Sinuses: Multiple radicular cysts involving the maxillary first and second premolars and the remaining first and second molars. Additional radicular cyst right maxillary first molar. Multiple dental caries bilaterally are also noted. Small air fluid level with mucosal thickening left maxillary sinus. Minimal mucosal thickening right maxillary sinus. Nasopharynx: Normal. No mucosal masses or thickening. Oropharynx: See Soft Tissues Finding. Hypopharynx: Normal. No mucosal masses or thickening. Larynx: Normal. Normal epiglottis. Retropharyngeal space: Normal. No effusion. Submandibular/Parotid glands: Normal. Glands are normal in size. Thyroid: Normal. No enlarged or calcified nodules. Lymph nodes: Multiple reactive bilateral cervical chain lymph nodes including right level III node measuring 1.2 cm (series 2, image 54) and left level III node measuring 0.9 cm (series 2, image 58). Trachea: Visualized trachea is normal. Esophagus: Visualized esophagus is normal. Lungs: Normal as visualized. Bones/joints: Normal. No acute fracture. Soft tissues: Subcutaneous stranding along the right greater than left pre-mandibular soft tissues extending below the mandible and along the anterior neck. Stranding involves the bilateral submandibular, sublingual, carotid, and masseter spaces. Possible fluid collection along the tongue base which measures 3.2 x 2.5 x 2.5 cm (series 2/601, image 64/50). Single tiny focus of gas. IMPRESSION: 1. 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 2. Multiple dental caries and associated radicular cysts. Assess/Plan/Problems-Billing Assessment: 44 yof PMHx IVDU, anxiety, depression presents with Trevon angina. - Patient Problems (1) Cellulitis of neck Comment: - No airway compromise; swallowing, jaw movement intact; continues to have firmness, tenderness to submandibular region - Afebrile, no leukocytosis; CRP trending down - Dr. Cowan saw patient during last admission - CT neck soft tissue w/contrast 06/15/[address] Cowan suspects the submandibular swelling is cellulitis secondary to worsening tooth abscess. Previous CT without contrast from prior admission written above - Blood cultures were never obtained prior to IV abx administration in prior admission. The utility of ordering them now would be low given that patient has received multiple doses of abx - Discussed with ID; they recommend continued cefepime, switch metronidozole to clindamycin 300 TID and discharge on a total of 3 weeks clinda - Pt will need outpatient follow up with dental services/oral surgery angelina (2) Altered mental status Comment: -Pt intermittently somnolent, aggitated, hyperactive -D/c ativan -CT brain without abnormality -UDS + cannabis, cocaine on day 1 and day 4 of this hospital admission -Psych consulted for evaluation; will continue to follow -Pt on methadone; dose at admission was 70 mg, and she receives 50 mg outpatient. -Methadone 50mg starting 06/16; this is her home dose, per clinic at [place] -Decreased to 40mg 06/21 with good results- less somnolence (3) Edema Comment: -B/l UE, LE nonpitting edema; improving -Estimated urinary protein excretion 0.1g/d, WNL- low suspicion for nephrotic syndrome -Low suspicion for DVT, as this is occurring in all extremities -Suspect lymphedema -Wrap UE, LE as tolerated; TEDS (4) Opiate dependence Comment: - Methadone 40 daily - SW involved to find residential drug rehabilitation for patient (5) Tobacco abuse Comment: -continue nicotine gum/lozenge -there were nursing concerns of patient smoking cigarettes in hospital at prior admission this week (6) Depression Comment: -continue fluoxetine (7) DVT prophylaxis Comment: - Ambulation, Low Risk (8) Full code status Status and Disposition: Pending residential drug and alcohol rehab placement.
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
[2019-06-21 16:15] LABS: Hematocrit 43 % (35-47); Hemoglobin 13.7 g/dL (12.0-16.0); Mean Corpuscular HGB Conc 32 g/dL (31-36); Mean Corpuscular Hemoglobin 31 pg (27-31); Mean Corpuscular Volume 96 fL (80-97); Red Blood Count 4.49 10^6 /uL (3.70-4.87); Red Cell Distribution Width 14 % (10-15); White Blood Count 8.3 10^3/uL (3.5-10.8)
[2019-06-21 16:27] LABS: CO2 Carbon Dioxide 34 mmol/L (22-32); Calcium 9.1 mg/dL (8.6-10.3); Chloride 97 mmol/L (101-111); Sodium 135 mmol/L (135-145)
[2019-06-21 16:33] LABS: BUN/Creatinine Ratio 10.2 (8-20); Blood Urea Nitrogen 9 mg/dL (6-24); EGFR African American 84.5 (>60); EGFR Non-African American 69.8 (>60); Glucose 95 mg/dL (70-100)
[2019-06-21 16:36] LABS: Anion Gap 4 mmol/L (2-11)
[2019-06-21 16:39] LABS: ABS Eosinophils 0.3 10^3/ul (0-0.6); ABS Lymphocytes 1.8 10^3/ul (1.0-4.8); ABS Monocytes 0.7 10^3/ul (0-0.8); ABS Neutrophils 5.5 10^3/ul (1.5-7.7); Eosinophil % 3.6 %; Lymphocyte % 21.4 %; Nucleated Red Blood Cells % 0.1; Platelet Count Platelets clumped. 10^3/uL (150-450)
[2019-06-21] MEDS: Clindamycin CAP* 150 MG PO SCH (19:46)
[2019-06-21] MEDS: traZODone TAB* 100 MG PO SCH (19:48)
[2019-06-22] MEDS: Ibuprofen TAB* 600 MG PO PRN ×2 (01:34→19:44)
[2019-06-22] MEDS: Cefepime 1 GM in Dextrose(*) 1 GM/50 ML BAG IV SCH ×2 (04:17→16:27)
[2019-06-22] MEDS: Methadone TAB* 10 MG PO SCH (04:17)
[2019-06-22] MEDS: FLUoxetine CAP* 20 MG PO SCH (09:30)
[2019-06-22] MEDS: Clindamycin CAP* 150 MG PO SCH ×3 (09:31→19:54)
[2019-06-22] MEDS: Nicotine PATCH 21 MG/24 HR* PATCH TRANSDERM SCH (09:32)
[2019-06-22] MEDS: Gabapentin CAP(*) 400 MG PO SCH ×3 (09:32→19:53)
[2019-06-22 09:36] LABS: Urine THC Interpretation Positive.
--- NOTE | 2019-06-22 11:42 | CONSULT ---
Identification - Patient Identification Reason for Psychiatric Consultation: Incapacitating Symptoms -: Patient is a 44 year old, F admitted on 06/14/19. - MHU Identification Employment Status: Unemployed Hx Psychiatric Hospitalization: Yes History - Objective HPI: Debi is seen for follow up this morning in her room on . She is upset that staff searched some belongings that were brought by a friend. "What, am I in [place] here or something?" She remains agreeable with inpatient drug rehab, however, her insurance has and needs to be reactivated. She denies SI or HI and is redirectable with reassurance. Exam Appearance: Well Developed/Nourished Hygiene: Normal Grooming: Fairly Well Kept Psychomotor Activities: Abnormal-Increased Exhibits Abnormal Movement: No Attitude and Relatedness: Hostile Eye Contact: Fair - Speech Quality: Pressured Latencies: Short Quantity: Copious Patient's Decription of Mood: "Upset" Observed Affect: Labile Affect Consistent with: Dysphoria Patient's Thought Process: Circumstantial Thought Content: Yes Paranoid Ideation, No Passive Wish, No Suicidal Planning, No Homicidal Ideation Experiencing Hallucinations: No, Sensorium is Clear Type of Hallucinations: Visual: No, Auditory: No, Command: No Level of Consciousness: Alert Orientation: Yes Intact, Yes Orientated to Time, Yes Orientated to Place, Yes Orientated to Person Impulse Control: Tenuous Insight and Judgement: Poor Impression - Impression Clinical Impression: 44 y.o. , white female with a history of affective problems and two previous, remote BSU admissions, as well as significant polysubstance misuse, was readmitted to the 4th floor medical service on Friday, June 14 after briefly leaving AMA and presumably using drugs. Her behavior has been labile since readmission, vacillating between somnolence and hyperkinesis and irritability. Inpatient DSM-V Dx: F14.10 Merits Inpatient Hospitalization: No BSU: Problem List - Patient Problems (1) Cocaine use disorder Current Visit: Yes Status: Acute Code(s): F14.10 - COCAINE ABUSE, UNCOMPLICATED SNOMED Code(s): 14480047 Plan - Treatment Plan Treatment Plan: Debi has polysubstance misuse and appears to still be experiencing opioid and cocaine withdrawal. Continue to manage symptoms and refer to inpatient drug and alcohol rehabilitation. Cannot rule out comorbid primary mental illness. Psychiatry will continue to follow. Continued Medication Management: Consider Medication Medications: Current Medications Clindamycin HCl (Cleocin Cap*) 300 mg PO TID [facility] Last Admin: 06/22/19 09:31 Dose: 300 mg Fluoxetine HCl (Prozac Cap*) 40 mg PO DAILY [facility] Last Admin: 06/22/19 09:30 Dose: 40 mg Gabapentin (Neurontin Cap(*)) 800 mg PO TID [facility] Last Admin: 06/22/19 09:32 Dose: Not Given Cefepime HCl (Maxipime 1 Gm In Dextrose Duplex (*)) 1 gm in 50 mls @ 100 mls/ hr IV Q12H [facility] Last Admin: 06/22/19 04:17 Dose: 100 mls/hr Ibuprofen (Motrin Tab*) 600 mg PO Q6H PRN PRN Reason: PAIN - MILD Last Admin: 06/22/19 01:34 Dose: 600 mg Lorazepam (Ativan Tab(*)) 0.5 mg PO Q6H PRN PRN Reason: ANXIETY Last Admin: 06/22/19 01:33 Dose: 0.5 mg Methadone HCl (Dolophine Tab*) 40 mg PO DAILY@0600 [facility] Last Admin: 06/22/19 04:17 Dose: 40 mg Nicotine (Nicotine Patch 21 Mg/24 Hr*) 1 patch TRANSDERM DAILY@0800 [facility] Last Admin: 06/22/19 09:32 Dose: Not Given Nicotine Polacrilex (Nicotine Lozenge Mini) 4 mg MT Q2H PRN PRN Reason: CRAVING Last Admin: 06/15/19 05:19 Dose: 4 mg Nicotine Polacrilex (Nicotine Gum*) 4 mg PO Q2H PRN PRN Reason: CRAVINGS Pharmacy Profile Note (Nicotine Patch Removal Note*) 1 note PATCH OFF 2100 [facility] Last Admin: 06/21/19 19:44 Dose: Not Given Trazodone HCl (Desyrel Tab*) 100 mg PO BEDTIME [facility] Last Admin: 06/21/19 19:48 Dose: 100 mg - Discharge Plan Discharge Plan: Drug/Alcohol Rehab
--- NOTE | 2019-06-22 19:37 | PN ---
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 Denies tooth pain, fever/chills, difficulty breathing, chest pain. Objective Active Medications: Clindamycin HCl (Cleocin Cap*) 300 mg PO TID [facility] Last Admin: 06/22/19 14:20 Dose: 300 mg Fluoxetine HCl (Prozac Cap*) 40 mg PO DAILY [facility] Last Admin: 06/22/19 09:30 Dose: 40 mg Gabapentin (Neurontin Cap(*)) 800 mg PO TID [facility] Last Admin: 06/22/19 14:20 Dose: 800 mg Cefepime HCl (Maxipime 1 Gm In Dextrose Duplex (*)) 1 gm in 50 mls @ 100 mls/ hr IV Q12H [facility] Last Admin: 06/22/19 16:27 Dose: 100 mls/hr Ibuprofen (Motrin Tab*) 600 mg PO Q6H PRN PRN Reason: PAIN - MILD Last Admin: 06/22/19 01:34 Dose: 600 mg Methadone HCl (Dolophine Tab*) 40 mg PO DAILY@0600 [facility] Last Admin: 06/22/19 04:17 Dose: 40 mg Nicotine (Nicotine Patch 21 Mg/24 Hr*) 1 patch TRANSDERM DAILY@0800 [facility] Last Admin: 06/22/19 09:32 Dose: Not Given Nicotine Polacrilex (Nicotine Lozenge Mini) 4 mg MT Q2H PRN PRN Reason: CRAVING Last Admin: 06/15/19 05:19 Dose: 4 mg Nicotine Polacrilex (Nicotine Gum*) 4 mg PO Q2H PRN PRN Reason: CRAVINGS Pharmacy Profile Note (Nicotine Patch Removal Note*) 1 note PATCH OFF 2100 [facility] Last Admin: 06/21/19 19:44 Dose: Not Given Trazodone HCl (Desyrel Tab*) 100 mg PO BEDTIME [facility] Last Admin: 06/21/19 19:48 Dose: 100 mg Vital Signs - 8 hr 06/22/19 06/22/19 06/22/19 12:00 14:20 16:17 Temperature 97.0 F 98.2 F Pulse Rate 59 61 Respiratory 16 16 18 Rate Blood Pressure 84/44 95/58 (mmHg) O2 Sat by Pulse 93 94 Oximetry 06/22/19 16:41 Temperature Pulse Rate Respiratory 16 Rate Blood Pressure (mmHg) O2 Sat by Pulse Oximetry Oxygen Devices in Use Now: None Appearance: Young white female, sitting on edge of bed, in NAD Eyes: No Scleral Icterus, PERRLA Ears/Nose/Mouth/Throat: Mucous Membranes Moist Neck: - - Edema to submandibular region which is diminished, R>L, tender to palpation, no erythema Respiratory: Symmetrical Chest Expansion and Respiratory Effort, Clear to Auscultation Cardiovascular: NL Sounds; No Murmurs; No JVD, RRR Abdominal: - - abd soft, nontender, nondistneded Extremities: - - nonpitting edema bilaterally to feet and hands Skin: No Rash or Ulcers Neurological: Alert and Oriented x 3, NL Muscle Strength and Tone - Nutrition: Malnutrition Diagnosis/Plan Malnutrition Assessment by Registered Dietitian: Malnutrition Assessment Clinical Characteristics Acute,Moderate Malnutrition Assessment: -7# (4.8%) wt loss x <1 wk (147#-->140#) Criteria -consuming avg 33% x 7 days -BLE and BUE edema noted per nsg documentation Malnutrition Assessment: -Continue to monitor intakes Interventions -Provide food preferences as able -Ensure enlive 350 kcals, 20 g pro, once daily at 10am Malnutrition Assessment: Goals adequate intake to support hydration and lean body mass without add'l wt loss Result Diagrams: 06/21/19 15:57 06/22/19 08:38 Microbiology and Other Data: Microbiology 06/16/19 20:19 Urine Culture - Final Urine No Growth (<1,000 CFU/mL) Diagnostic Imaging: CT Soft Tissue Neck Without Contrast FINDINGS: Sinuses: Multiple radicular cysts involving the maxillary first and second premolars and the remaining first and second molars. Additional radicular cyst right maxillary first molar. Multiple dental caries bilaterally are also noted. Small air fluid level with mucosal thickening left maxillary sinus. Minimal mucosal thickening right maxillary sinus. Nasopharynx: Normal. No mucosal masses or thickening. Oropharynx: See Soft Tissues Finding. Hypopharynx: Normal. No mucosal masses or thickening. Larynx: Normal. Normal epiglottis. Retropharyngeal space: Normal. No effusion. Submandibular/Parotid glands: Normal. Glands are normal in size. Thyroid: Normal. No enlarged or calcified nodules. Lymph nodes: Multiple reactive bilateral cervical chain lymph nodes including right level III node measuring 1.2 cm (series 2, image 54) and left level III node measuring 0.9 cm (series 2, image 58). Trachea: Visualized trachea is normal. Esophagus: Visualized esophagus is normal. Lungs: Normal as visualized. Bones/joints: Normal. No acute fracture. Soft tissues: Subcutaneous stranding along the right greater than left pre-mandibular soft tissues extending below the mandible and along the anterior neck. Stranding involves the bilateral submandibular, sublingual, carotid, and masseter spaces. Possible fluid collection along the tongue base which measures 3.2 x 2.5 x 2.5 cm (series 2/601, image 64/50). Single tiny focus of gas. IMPRESSION: 1. 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 2. Multiple dental caries and associated radicular cysts. Assess/Plan/Problems-Billing Assessment: 44 yof PMHx IVDU, anxiety, depression presents with swelling of the submandibular space - Patient Problems (1) Cellulitis and abscess of neck Current Visit: No Status: Acute Priority: High Code(s): L03.221 - CELLULITIS OF NECK; L02.11 - CUTANEOUS ABSCESS OF NECK SNOMED Code(s): 879432734 Comment: - No airway compromise - Afebrile, no leukocytosis - Dr. Cowan saw patient during last admission - CT neck soft tissue w/contrast 06/15/[address] Cowan suspects the submandibular swelling is cellulitis secondary to worsening tooth abscess. Previous CT without contrast from prior admission written above - Changed abx to ciprofloxacin, d/c cefepime/flagyl - Improving (2) Altered mental status Current Visit: Yes Status: Acute Code(s): R41.82 - ALTERED MENTAL STATUS, UNSPECIFIED SNOMED Code(s): 389625830 Comment: -Pt intermittently somnolent, agitated, hyperactive -D/c ativan -CT brain without abnormality -UDS + cannabis, cocaine on day 1 and day 4 of this hospital admission -Psych consulted for evaluation; will continue to follow -Continue methadone with 40 mg (3) Opiate dependence Current Visit: No Status: Acute Priority: Medium Code(s): F11.20 - OPIOID DEPENDENCE, UNCOMPLICATED SNOMED Code(s): 41539919 Comment: - Methadone 40 daily - SW involved to find residential drug rehabilitation for patient (4) Edema Current Visit: Yes Status: Acute Code(s): R60.9 - EDEMA, UNSPECIFIED SNOMED Code(s): 541323723 Comment: -Bilateral UE, LE nonpitting edema; improving -Estimated urinary protein excretion 0.1g/d, WNL- low suspicion for nephrotic syndrome -Low suspicion for DVT, as this is occurring in all extremities -Continue TEDs -Likely dependent edema as patient is frequently standing in hospital room, discussed resting and elevating extremities (5) Tobacco abuse Current Visit: No Status: Acute Priority: Medium Code(s): Z72.0 - TOBACCO USE SNOMED Code(s): 772890879 Comment: -continue nicotine gum/lozenge -there were nursing concerns of patient smoking cigarettes in hospital at prior admission (6) Depression Current Visit: Yes Status: Acute Code(s): F32.9 - MAJOR DEPRESSIVE DISORDER , SINGLE EPISODE, UNSPECIFIED SNOMED Code(s): 86207531 Comment: -continue fluoxetine (7) DVT prophylaxis Current Visit: No Status: Acute Priority: Low Code(s): Z29.9 - ENCOUNTER FOR PROPHYLACTIC MEASURES, UNSPECIFIED SNOMED Code(s): 055013341 Comment: - Ambulation, Low Risk (8) Full code status Current Visit: No Status: Acute Code(s): Z78.9 - OTHER SPECIFIED HEALTH STATUS SNOMED Code(s): 656208024 Status and Disposition: Pending residential drug and alcohol rehab placement.
[2019-06-22] MEDS: traZODone TAB* 100 MG PO SCH ×2 (19:52→21:01)
[2019-06-22] MEDS: Nicotine Patch Removal NOTE PATCH OFF SCH (20:01)
[2019-06-23] MEDS: Methadone TAB* 10 MG PO SCH (05:58)
[2019-06-23] MEDS: Gabapentin CAP(*) 400 MG PO SCH ×3 (09:38→21:02)
[2019-06-23] MEDS: Clindamycin CAP* 150 MG PO SCH ×3 (09:39→22:04)
[2019-06-23] MEDS: FLUoxetine CAP* 20 MG PO SCH (09:39)
[2019-06-23] MEDS: Ibuprofen TAB* 600 MG PO PRN ×2 (09:39→19:43)
[2019-06-23] MEDS: Nicotine PATCH 21 MG/24 HR* PATCH TRANSDERM SCH (09:43)
--- NOTE | 2019-06-23 11:32 | CONSULT ---
Identification - Patient Identification Reason for Psychiatric Consultation: Incapacitating Symptoms -: Patient is a 44 year old, F admitted on 06/14/19. - MHU Identification Employment Status: Unemployed Hx Psychiatric Hospitalization: Yes History - Objective HPI: Debi presents this morning as overtly paranoid and irritable. She has been hostile to various staff and at one point allegedly threatened someone with a pair of scissors. During my visit with her she slams the door closed after a staff member merely walks by her room. "I'm tired of these people prying into my business. Didn't you see her just snooping on us?" She goes on to accuse a peer up the hallway of prostituting herself here on the unit to the hospital security guards. She is similarly suspicious of me, demanding a business card or to write down my name. She denies SI or HI but is clearly quite compromised behaviorally. She denies doing drugs here on the unit. Exam Appearance: Well Developed/Nourished Hygiene: Normal Grooming: Fairly Well Kept Psychomotor Activities: Abnormal-Increased Exhibits Abnormal Movement: No Attitude and Relatedness: Psychotically Related Eye Contact: Poor - Speech Quality: Pressured Latencies: Short Quantity: Copious Patient's Decription of Mood: "Upset" Observed Affect: Labile Affect Consistent with: Dysphoria Patient's Thought Process: Tangential Thought Content: Yes Paranoid Ideation, No Passive Wish, No Suicidal Planning, No Homicidal Ideation Experiencing Hallucinations: No, Sensorium is Clear Type of Hallucinations: Visual: No, Auditory: No, Command: No Level of Consciousness: Alert Orientation: Yes Intact, Yes Orientated to Time, Yes Orientated to Place, Yes Orientated to Person Impulse Control: Poor Insight and Judgement: Impaired Impression - Impression Clinical Impression: 44 y.o. , white female with a history of affective problems and two previous, remote BSU admissions, as well as significant polysubstance misuse, was readmitted to the 4th floor medical service on Friday, June 14 after briefly leaving AMA and presumably using drugs. Her behavior has been labile since readmission, vacillating between somnolence and hyperkinesis and irritability. Inpatient DSM-V Dx: F14.10 Merits Inpatient Hospitalization: No BSU: Problem List - Patient Problems (1) Cocaine use disorder Current Visit: Yes Status: Acute Code(s): F14.10 - COCAINE ABUSE, UNCOMPLICATED SNOMED Code(s): 59677048 Plan - Treatment Plan Treatment Plan: I continue to suspect that this patient is using contraband substances here on the unit. I have requested a stat UDS from the primary team. If the result is negative, that would point to primary mental illness and would justify BSU transfer. If it is positive then the patient's room must be searched by staff. I understand she is pending transfer to an inpatient substance abuse rehab. Psychiatry will continue to follow. Medications: Current Medications Clindamycin HCl (Cleocin Cap*) 300 mg PO TID [facility] Last Admin: 06/23/19 09:39 Dose: 300 mg Fluoxetine HCl (Prozac Cap*) 40 mg PO DAILY [facility] Last Admin: 06/23/19 09:39 Dose: 40 mg Gabapentin (Neurontin Cap(*)) 800 mg PO TID [facility] Last Admin: 06/23/19 09:38 Dose: 800 mg Ibuprofen (Motrin Tab*) 600 mg PO Q6H PRN PRN Reason: PAIN - MILD Last Admin: 06/23/19 09:39 Dose: 600 mg Methadone HCl (Dolophine Tab*) 40 mg PO DAILY@0600 [facility] Last Admin: 06/23/19 05:58 Dose: 40 mg Nicotine (Nicotine Patch 21 Mg/24 Hr*) 1 patch TRANSDERM DAILY@0800 [facility] Last Admin: 06/23/19 09:43 Dose: Not Given Nicotine Polacrilex (Nicotine Lozenge Mini) 4 mg MT Q2H PRN PRN Reason: CRAVING Last Admin: 06/15/19 05:19 Dose: 4 mg Nicotine Polacrilex (Nicotine Gum*) 4 mg PO Q2H PRN PRN Reason: CRAVINGS Pharmacy Profile Note (Nicotine Patch Removal Note*) 1 note PATCH OFF 2100 [facility] Last Admin: 06/22/19 20:01 Dose: Not Given Trazodone HCl (Desyrel Tab*) 100 mg PO BEDTIME [facility] Last Admin: 06/22/19 21:01 Dose: 100 mg - Discharge Plan Discharge Plan: Drug/Alcohol Rehab
[2019-06-23 13:48] LABS: Urine Benzodiazepine Screen None Detected (None Detect); Urine Opiates Screen None Detected (None Detect)
[2019-06-23] MEDS ORDERED: hydrOXYzine HCL TAB* 50 MG PO PRN (15:47)
[2019-06-23] MEDS: Divalproex DR TAB(*) 250 MG PO SCH (21:01)
[2019-06-23] MEDS: Nicotine Patch Removal NOTE PATCH OFF SCH (21:04)
--- NOTE | 2019-06-24 03:33 | TRS ---
CC: Dr. Myers * TRANSFER SUMMARY: DATE OF ADMISSION: 06/14/19 DATE OF TRANSFER: 06/23/19 CONSULTING PSYCHIATRIST: Dr. Ansari. PRIMARY CARE PROVIDER: Dr. Myers. ATTENDING PROVIDER: Dr. Luis Silvestre * (DICTATED BY VERONICA FRANCE) MEDICATIONS AT TIME OF TRANSFER: 1. Clindamycin 300 mg p.o..t.i.d. 2. Fluoxetine 40 mg p.o. daily. 3. Gabapentin 800 mg p.o. t.i.d. 4. Ibuprofen 600 mg p.o. q.6 hours p.r.n. mild pain. 5. Methadone 40 mg p.o. daily. 6. Nicotine patch 1 patch transdermally daily. 7. Nicotine lozenge 12 mg q.2 hours p.r.n. cravings. 8. Trazodone 100 mg p.o. at bedtime. HISTORY OF PRESENT ILLNESS/HOSPITAL COURSE: Debi Rodriguez is a 44-year-old white female with past medical history significant for IV heroin use and PTSD, who presented to [facility] [place] [place] on 06/14/19 due to persistent jaw pain and following at [facility] [place] [place]. For more detailed information regarding her admission, please see the history and physical written by Dr. Lynn Romero. She recently left [facility] [place] [place] against medical advice with the same complaint of persistent jaw pain. She had swelling , tenderness and erythema in her submandibular region and initially there was concern for Trevon angina. However, she was seen in her prior hospitalization by ENT specialist Dr. Cowan. He determined that the patient did not have Trevon's because she was in fact able to protrude her tongue, did not have difficulty speaking, and was able to maintain her airway. He believes that this edema and erythema were secondary to a dental abscess. He did believe that an axial facial CT would be of further benefit considering it may still miss the abscess depending on the size. He believes that she can get an outpatient referral to a dentist, so she could have the dental abscess taken care of and this would likely resolve the submandibular pain. She was previously on vancomycin, cefepime and Flagyl during her stay, ultimately changed to clindamycin orally. Ultimately, she was medically safe for discharge on oral antibiotics with a plan to get her to a dentist and a safe place to live. However, she was interested in drug and alcohol rehab and there were plans to arrange that with pending medical insurance issues. However, on date of transfer, the patient was becoming increasingly agitated. Previously in her hospital stay, she had labile emotional state. However, on day of transfer, she was seemingly worse and she was presenting with some paranoid delusions. She was accusing staff of lying to her and accusing other staff of being involved in a prostitution ring. Given that she did have positive cocaine and benzodiazepines in her urine as part of original admission, Dr. Ansari had concerns that she possibly had more drugs on her person. On day of transfer, repeat urine toxicology was completed and there were no substances detected in her urine and therefore, this is likely psychiatric presentation. Dr. Ansari felt that the patient was appropriate to be transferred to the behavioral services unit. Additionally, the patient was [facility]19 at [place] and was initially prescribed 50 mg of methadone. This was making her somnolent during hospital stay and this was decreased to 40 mg, which seemed to be working for the patient and somnolence was no longer an issue. Of note, the patient in additionally was developing trace edema in her hands and feet. Overall, I believe that this is likely dependent edema as the patient is very frequently up and about in her room. She and I discussed relaxing and elevating her legs to ensure that this was improving. However, the patient was not adherent to this plan. PHYSICAL EXAM ON THE DAY OF TRANSFER: General: Middle-aged, white female pacing room, appearing minimally agitated. Sometimes crying and sometimes shouting. Eyes: PERRL. Sclerae anicteric. ENT: Mucous membranes moist. Neck: Edema and tenderness to palpation in the submandibular space, right side greater than left, improved from initial presentation. Lungs: Clear to auscultation throughout. Cardio: Regular rate and rhythm without murmurs, rubs , or gallops. Abdomen: Soft, nontender, nondistended. Extremities: Trace pedal edema. Neuro: The patient is alert and oriented x3. No focal deficits. Normal gait. No tremors. Psych: The patient appears agitated and not responding to internal stimuli. DISPOSITION: Transfer to behavioral services unit at [facility], admitted by Dr. Ansari. CONDITION ON DISCHARGE: Fair. DISCHARGE PLAN: Upon discharge from the BSU, I ask the case management team to please facilitate the patient in finding a safe plan for home care as she does not have stable place to live in this region. It was discussed that [facility] [place] [facility] [place] [facility], who was not willing to rectify the sanctions. This would be of benefit as the patient already receives methadone in [place]. Additionally, the patient would need followup with a dentist and to follow up with her primary care provider within 7 to 10 days after discharge from hospital. TIME SPENT: Approximately 40 minutes were spent on this transfer, approximately half this time was spent at the bedside of the patient. VERONICA FRANCE [id number]/CPS #: [id number] MTDD
[2019-06-24] MEDS: Ibuprofen TAB* 600 MG PO PRN ×2 (04:37→18:38)
[2019-06-24] MEDS: Clindamycin CAP* 150 MG PO SCH ×3 (07:57→20:34)
[2019-06-24] MEDS: Methadone TAB* 10 MG PO SCH (07:58)
[2019-06-24] MEDS: Gabapentin CAP(*) 400 MG PO SCH ×3 (11:04→20:35)
[2019-06-24] MEDS: Divalproex DR TAB(*) 250 MG PO SCH ×2 (11:04→20:34)
[2019-06-24] MEDS: Nicotine PATCH 21 MG/24 HR* PATCH TRANSDERM SCH (11:56)
--- NOTE | 2019-06-24 12:46 | PN ---
Subjective - Subjective Date of Service: 06/24/19 Service Type: [id number] Hosp care 15 min low complexity Subjective: Debi is now seen on the BSU where she remains tearful and emotionally labile. She experiences people "yelling at me" even when they are merely talking with someone else in her vicinity. The patient's ankles are swollen and edematous and she complains bitterly of pain, which she accuses us of not addressing. She is taking the Depakote so far but complains of insomnia without trazodone. She refuses quetiapine because of "restless legs" but agrees to a trial of olanzapine. She continues to insist that a patient was prostituting on the 4th floor prior to her transfer downstairs. Objective - General Observations Appearance: Disheveled Appears Stated Age: Yes Stature: WNL Posture: Slumped Eye Contact: Avoidant Behavior/Activity: Impulsive - Interaction Observations Attitude Towards Examiner: Defensive Stated Mood: Dysphoric Affect: Labile Speech Pattern/Tone: Excessive Thought Process: Tangential Thought Content: Paranoid Thought Process: Lethality: Paranoid Ideation Hallucination Type: None Delusion Type: Persecution - Cognitive Function Orientation: A&O x 4 Level of Consciousness: Awake Cognition: WNL Estimated Intelligence: Normal Insight: Mostly Blames Others for Problems Judgment Within Normal Limits: No Ability to Make Reasonable Decisions: Serverely Impaired - Medication Compliance Cooperative with Inpatient Medication Regimen: Yes - Group Participation Participates in Group Activities: No Assessment - Assessment Merits Inpatient Hospitalization: For Immediate Safety, For Stabilization Inpatient DSM-V Dx: F14.10 Clinical Impression: 44 y.o. , white female with a history of affective problems and two previous, remote BSU admissions, as well as significant polysubstance misuse, was transferred from the 4th floor to the BSU after presenting with paranoia and intermittent agitation and threatening to kill staff with a pair of scissors. BSU: Problem List - Patient Problems (1) Cocaine use disorder Current Visit: Yes Status: Acute Code(s): F14.10 - COCAINE ABUSE, UNCOMPLICATED SNOMED Code(s): 47435395 Plan - Plan Treatment Plan: The patient presents with mixed episode of bipolar disorder. I have discontinued fluoxetine and trazodone and replaced them with Depakote 250mg PO BID. I will add olanzapine 5mg PO qhs. The hospitalist service is following for her neck abscess and swelling in her legs. Continue to treat and transfer to inpatient rehab once no longer a threat to others. Continued Medication Management: Different Medication Medications: Current Medications Clindamycin HCl (Cleocin Cap*) 300 mg PO TID [facility] Last Admin: 06/24/19 07:57 Dose: 300 mg Divalproex Sodium (Depakote Dr Tab(*)) 250 mg PO BID [facility] Last Admin: 06/24/19 11:04 Dose: 250 mg Gabapentin (Neurontin Cap(*)) 800 mg PO TID [facility] Last Admin: 06/24/19 11:04 Dose: 800 mg Hydroxyzine HCl (Atarax Tab*) 50 mg PO Q6H PRN PRN Reason: anxiety Ibuprofen (Motrin Tab*) 600 mg PO Q6H PRN PRN Reason: PAIN - MILD Last Admin: 06/24/19 04:37 Dose: 600 mg Methadone HCl (Dolophine Tab*) 40 mg PO DAILY@0600 [facility] Last Admin: 06/24/19 07:58 Dose: 40 mg Nicotine (Nicotine Patch 21 Mg/24 Hr*) 1 patch TRANSDERM DAILY@0800 [facility] Last Admin: 06/24/19 11:56 Dose: Not Given Nicotine Polacrilex (Nicotine Lozenge Mini) 4 mg MT Q2H PRN PRN Reason: CRAVING Last Admin: 06/15/19 05:19 Dose: 4 mg Nicotine Polacrilex (Nicotine Gum*) 4 mg PO Q2H PRN PRN Reason: CRAVINGS Olanzapine (Zyprexa Tab*) 5 mg PO BEDTIME [facility] Pharmacy Profile Note (Nicotine Patch Removal Note*) 1 note PATCH OFF 2100 [facility] Last Admin: 06/23/19 21:04 Dose: Not Given - Discharge Plan Discharge Plan: Drug/Alcohol Rehab
--- NOTE | 2019-06-24 14:47 | ECHO ---
*[facility]* [place] [address] Fax #: [phone] Transthoracic Echocardiogram Patient: Debi Rodriguez : 1975 Study Date: 06/24/2019 Age: 44 Gender: F HR: 48 bpm Height: 65 in /165.1 cm BSA: 1.75 m^2 Weight: 149.7 lb /68 kg BMI: 25 kg/m^2 *Chemotherapist: * Josy Fitzpatrick [facility] *Referring Physician: * O'Cheyanne Hamm *Reading Physician: * Ricky Cummings MD Indications: Edema. History: IVDA,smoker. Risk factors: Current tobacco use. Conclusions Summary: - Left ventricle: The cavity size is normal. Wall thickness is at the upper limits of normal. Systolic function is normal. The estimated ejection fraction is 55-60%. Wall motion is normal; there are no regional wall motion abnormalities. - Normal cardiac chamber sizes. - Functionally benign heart valves. - There is no prior echocardiogram available to compare with at this time. Study data: Transthoracic echocardiogram. Procedure: Transthoracic echocardiography was performed. Image quality was good. Complete 2D, spectral Doppler, and color flow Doppler. Patient status: Inpatient. Patient room number: 211. Rhythm: Bradycardia. Findings Left ventricle: The cavity size is normal. Wall thickness is at the upper limits of normal. Systolic function is normal. The estimated ejection fraction is 55-60%. Wall motion is normal; there are no regional wall motion abnormalities. Left ventricular diastolic function parameters are normal. Right ventricle: Well visualized. The cavity size is normal. Systolic function is normal. Ventricular septum: Well visualized. Left atrium: Well visualized. The atrium is normal in size. Right atrium: Well visualized. The atrium is normal in size. Mitral valve: Well visualized. The leaflets are normal thickness. There is no significant regurgitation. Aortic valve: Well visualized. The valve is trileaflet. The leaflets are normal thickness. There is no evidence of stenosis. There is no significant regurgitation. Tricuspid valve: Well visualized. The leaflets are normal thickness. There is trace regurgitation. No pulmonary hypertension with estimated pulmonary artery systolic pressure of 34 mm Hg. Pulmonic valve: Well visualized. The leaflets are normal thickness. There is no evidence of stenosis. There is no significant regurgitation. Aorta: The aorta is well visualized and normal size. The aortic root appears normal. The aortic arch appears normal. Pericardium: There is no pericardial effusion. Pulmonary arteries: Well visualized. The main pulmonary artery is normal-sized. Systemic veins: Well visualized. Inferior vena cava: There is (>= 50%) respiratory change in the IVC dimension. Pulmonary veins: Visualization of the pulmonary venous anatomy is incomplete, but a significant abnormality is unlikely. Measurements Left ventricle Value Ref Aortic valve Value Ref LUCIEN, LAX 4.4 cm 3.8 - Peak v, S 1.15 m/sec ----- 5.2 VTI, S 30.1 cm ----- ESD, LAX 3.1 cm 2.2 - Mean grad, S 3.0 mm Hg ----- 3.5 Peak grad, S 5.0 mm Hg ----- FS, LAX 28 % LVOT/AV, VTI ratio 0.61 ----- PW, ED, LAX (H) 1.0 cm 0.6 - LUIGI, VTI 1.73 cm^2 ----- 0.9 LUIGI, Vmax 2.31 cm^2 ----- FS 28 % Mid-wall FS 12 % -------- Mitral valve Value Ref PW, ED (H) 1.0 cm 0.6 - Peak E 0.89 m/sec ----- 0.9 Peak A 0.68 m/sec ----- PW/ID, ED 0.22 -------- Decel time 201 ms ----- E', lat kiya, TDI 13.2 cm/sec >=10.0 Peak grad, D 3.2 mm Hg - ---- E/e', lat kiya, TDI 7 -------- Peak E/A ratio 1.3 ---- - E', med kiya, TDI 8.4 cm/sec >=7.0 E/e', med kiya, TDI 11 -------- Pulmonic valve Value Ref E', avg, TDI 10.8 cm/sec -------- Peak v, S 0.92 m/sec ---- - E/e', avg, TDI 8 <=14 Peak grad, S 3.0 mm Hg - ---- LVOT Value Ref Tricuspid valve Value Ref Diam, S 1.90 cm -------- TR peak v 2.53 m/sec <=2.8 Area 2.8 cm^2 -------- Peak RV-RA grad, S 26 mm Hg ----- Peak miroslava, S 0.93 m/sec -------- Max TR miroslava 2.53 m/sec ----- VTI, S 18.3 cm -------- Mean grad, S 1 mm Hg -------- Aortic root Value Ref SV 52 ml -------- Root diam 2.8 cm <4.0 SV/bsa 30 ml/m^2 -------- Ascending aorta Value Ref Ventricular septum Value Ref AAo AP diam, S 2.5 cm ----- IVS, ED (H) 1.1 cm 0.6 - AAo AP diam/bsa, S 1.4 cm/m^2 ----- 0.9 Aortic arch Value Ref Right ventricle Value Ref Arch diam 1.9 cm ----- LUCIEN, LAX 2.9 cm -------- LUCIEN minor ax, A4C 3.4 cm 1.9 - Decending aorta Value Ref mid 3.5 Justice peak miroslava 1.19 m/sec ----- Left atrium Value Ref Inferior vena cava Value Ref ML dim, A4C 3.6 cm -------- Diam 2.5 cm ----- SI dim, A4C 4.8 cm -------- Vol/bsa, ES, 1-p 22 ml/m^2 11 - 40 A4C Vol/bsa, ES, A/L 26 ml/m^2 16 - 34 Right atrium Value Ref SI dim, ES 4.4 cm 3.4 - 5.3 ML dim, ES, A4C 3.7 cm 2.6 - 4.4 SI dim, ES, A4C 4.4 cm 3.4 - 5.3 SI dim/bsa, ES, A4C 2.5 cm/m^2 1.9 - 3.1 Estimated RAP 3 mm Hg -------- Legend: (L) and (H) terry values outside specified reference range. Prepared and electronically signed by Ricky Cummings MD 06/24/2019 14:46
--- NOTE | 2019-06-24 16:51 | PN ---
Hospitalist Progress Note Date of Service: 06/24/19 Patient transferred to BSU from medical floor yesterday. Patient has been having ongoing bilateral lower extremity edema during her hospital stay. The edema is resolved in the morning after the patient has been sleeping all night, and re-develops during the day once the patient is up walking around. During her time on the medical floor, this was discussed with the patient and she was not agreeable to resting and elevating her legs intermittently during the day. LUIS hose would be appropriate, however this is a ligature risk on the BSU. This would be appropriate at discharge unless contraindicated from a psychiatric standpoint. Echo was ordered to rule out cardiac etiology. Echo is with EF wnl and without diastolic dysfunction. I do believe this is dependent edema ie related to gravity. Edema is also a known adverse effect of methadone and this may be a contributing factor as well.
[2019-06-24] MEDS: Nicotine Patch Removal NOTE PATCH OFF SCH (20:37)
[2019-06-24] MEDS ORDERED: OLANzapine TAB* 5 MG PO SCH (21:00)
[2019-06-24] MEDS: Nicotine Lozenge* mini 4 MG LOZNG.MINI MT PRN (22:24)
[2019-06-25] MEDS: Ibuprofen TAB* 600 MG PO PRN ×3 (02:05→19:43)
[2019-06-25] MEDS: Methadone TAB* 10 MG PO SCH (08:29)
[2019-06-25] MEDS: Gabapentin CAP(*) 400 MG PO SCH ×3 (08:29→19:40)
[2019-06-25] MEDS: Divalproex DR TAB(*) 250 MG PO SCH ×2 (08:30→19:42)
[2019-06-25] MEDS: Clindamycin CAP* 150 MG PO SCH ×3 (08:30→19:39)
[2019-06-25] MEDS: Nicotine PATCH 21 MG/24 HR* PATCH TRANSDERM SCH (09:41)
[2019-06-25] MEDS ORDERED: NS 0.9% 1000 ML** 1,000 ML IV ONE (11:27)
--- NOTE | 2019-06-25 11:48 | PN ---
Subjective Date of Service: 06/25/19 Interval History: Patient today had a fall when she was getting out of the shower. Patient states her poor vision made it difficulty for her to gauge the step down and she slipped. Patient states she just scraped her knee and denies dizziness/LOC. Patient denies CP, SOB, diarrhea, F/C, difficulty swallowing, abdominal pain, dysuria, or other pain. Patient is still not sleeping well. Family History: Unchanged from Admission Social History: Unchanged from Admission Past Medical History: Unchanged from Admission Objective Active Medications: Clindamycin HCl (Cleocin Cap*) 300 mg PO TID [facility] Last Admin: 06/25/19 08:30 Dose: 300 mg Divalproex Sodium (Depakote Dr Tab(*)) 250 mg PO BID [facility] Last Admin: 06/25/19 08:30 Dose: 250 mg Gabapentin (Neurontin Cap(*)) 800 mg PO TID [facility] Last Admin: 06/25/19 08:29 Dose: 800 mg Hydroxyzine HCl (Atarax Tab*) 50 mg PO Q6H PRN PRN Reason: anxiety Ibuprofen (Motrin Tab*) 600 mg PO Q6H PRN PRN Reason: PAIN - MILD Last Admin: 06/25/19 08:31 Dose: 600 mg Methadone HCl (Dolophine Tab*) 40 mg PO DAILY@0600 [facility] Last Admin: 06/25/19 08:29 Dose: 40 mg Nicotine (Nicotine Patch 21 Mg/24 Hr*) 1 patch TRANSDERM DAILY@0800 [facility] Last Admin: 06/25/19 09:41 Dose: Not Given Nicotine Polacrilex (Nicotine Lozenge Mini) 4 mg MT Q2H PRN PRN Reason: CRAVING Last Admin: 06/24/19 22:24 Dose: 4 mg Nicotine Polacrilex (Nicotine Gum*) 4 mg PO Q2H PRN PRN Reason: CRAVINGS Olanzapine (Zyprexa Tab*) 5 mg PO BEDTIME [facility] Last Admin: 06/24/19 20:36 Dose: 5 mg Pharmacy Profile Note (Nicotine Patch Removal Note*) 1 note PATCH OFF 2100 [facility] Last Admin: 06/24/19 20:37 Dose: Not Given Vital Signs - 8 hr 06/25/19 06/25/19 06/25/19 08:29 08:32 10:22 Temperature 97.2 F Pulse Rate 72 58 Respiratory 16 16 12 Rate Blood Pressure 105/49 80/48 (mmHg) O2 Sat by Pulse 100 99 Oximetry 06/25/19 06/25/19 06/25/19 10:25 10:51 10:52 Temperature Pulse Rate Respiratory 12 12 Rate Blood Pressure 84/56 (mmHg) O2 Sat by Pulse Oximetry Oxygen Devices in Use Now: None Appearance: Patient is a 44yo female who appears older than stated age and is sitting in the bed in NAD. Eyes: No Scleral Icterus, PERRLA Ears/Nose/Mouth/Throat: NL Teeth, Lips, Gums, Clear Oropharnyx, Mucous Membranes Moist Neck: NL Appearance and Movements; NL JVP, Trachea Midline Respiratory: Symmetrical Chest Expansion and Respiratory Effort, Clear to Auscultation Cardiovascular: NL Sounds; No Murmurs; No JVD, RRR, - - Trace B/L LE edema. Abdominal: NL Sounds; No Tenderness; No Distention, No Hepatosplenomegaly Lymphatic: No Cervical Adenopathy Extremities: No Clubbing, Cyanosis Skin: No Rash or Ulcers, No Nodules or Sclerosis Neurological: Alert and Oriented x 3, NL Sensation, NL Muscle Strength and Tone , - - CN II-XII intact. Normal gait, Somewhat drowsy. - Nutrition: Malnutrition Diagnosis/Plan Malnutrition Assessment by Registered Dietitian: Malnutrition Assessment Clinical Characteristics Acute,Moderate Malnutrition Assessment: -7# (4.8%) wt loss x <1 wk (147#-->140#) Criteria -consuming avg 33% x 7 days -BLE and BUE edema noted per nsg documentation Malnutrition Assessment: -Continue to monitor intakes Interventions -Provide food preferences as able -Ensure enlive 350 kcals, 20 g pro, once daily at 10am Malnutrition Assessment: Goals adequate intake to support hydration and lean body mass without add'l wt loss Result Diagrams: 06/21/19 15:57 06/22/19 08:38 Microbiology and Other Data: Microbiology 06/16/19 20:19 Urine Culture - Final Urine No Growth (<1,000 CFU/mL) Diagnostic Imaging: CT Soft Tissue Neck Without Contrast FINDINGS: Sinuses: Multiple radicular cysts involving the maxillary first and second premolars and the remaining first and second molars. Additional radicular cyst right maxillary first molar. Multiple dental caries bilaterally are also noted. Small air fluid level with mucosal thickening left maxillary sinus. Minimal mucosal thickening right maxillary sinus. Nasopharynx: Normal. No mucosal masses or thickening. Oropharynx: See Soft Tissues Finding. Hypopharynx: Normal. No mucosal masses or thickening. Larynx: Normal. Normal epiglottis. Retropharyngeal space: Normal. No effusion. Submandibular/Parotid glands: Normal. Glands are normal in size. Thyroid: Normal. No enlarged or calcified nodules. Lymph nodes: Multiple reactive bilateral cervical chain lymph nodes including right level III node measuring 1.2 cm (series 2, image 54) and left level III node measuring 0.9 cm (series 2, image 58). Trachea: Visualized trachea is normal. Esophagus: Visualized esophagus is normal. Lungs: Normal as visualized. Bones/joints: Normal. No acute fracture. Soft tissues: Subcutaneous stranding along the right greater than left pre-mandibular soft tissues extending below the mandible and along the anterior neck. Stranding involves the bilateral submandibular, sublingual, carotid, and masseter spaces. Possible fluid collection along the tongue base which measures 3.2 x 2.5 x 2.5 cm (series 2/601, image 64/50). Single tiny focus of gas. IMPRESSION: 1. 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 2. Multiple dental caries and associated radicular cysts. Assess/Plan/Problems-Billing Assessment: 44 yof PMHx IVDU, anxiety, depression presents with swelling of the submandibular space who is now admitted to the BSU and improving. - Patient Problems (1) Hypotension Current Visit: Yes Status: Acute Comment: - Likely related to Medications, not symptomatic, not likely primary etiology of fall - Olanzapine new medication and likely culprit, discussed pursuing alternative therapy with psychiatry - Give fluids to support BP and facilitate medication clearance. (2) Cellulitis of neck Current Visit: Yes Status: Acute Code(s): L03.221 - CELLULITIS OF NECK SNOMED Code(s): 25335515 Comment: - No airway compromise; swallowing, jaw movement intact - Dr. Cowan saw patient during last admission - CT neck soft tissue w/contrast 06/15/[address] Cowan suspects the submandibular swelling is cellulitis secondary to worsening tooth abscess. - Blood cultures were never obtained prior to IV abx administration in prior admission. - Continue for 3 total weeks Clinda - Pt will need outpatient follow up with dental services/oral surgery angelina - No signs of worsening, not likely cause of hypotension (3) Depression Current Visit: Yes Status: Acute Code(s): F32.9 - MAJOR DEPRESSIVE DISORDER , SINGLE EPISODE, UNSPECIFIED SNOMED Code(s): 26197905 Comment: - Continue fluoxetine (4) Edema Current Visit: Yes Status: Acute Code(s): R60.9 - EDEMA, UNSPECIFIED SNOMED Code(s): 821761557 Comment: -Bilateral UE, LE nonpitting edema; improving -Estimated urinary protein excretion 0.1g/d, WNL- low suspicion for nephrotic syndrome -Low suspicion for DVT, as this is occurring in all extremities -Continue TEDs -Likely dependent edema as patient is frequently standing in hospital room, discussed resting and elevating extremities - Possibly related to high dose Gabapentin (5) Opiate dependence Current Visit: No Status: Acute Priority: Medium Code(s): F11.20 - OPIOID DEPENDENCE, UNCOMPLICATED SNOMED Code(s): 63850344 Comment: - Methadone 40 daily - Inpatient on BSU (6) Tobacco abuse Current Visit: No Status: Acute Priority: Medium Code(s): Z72.0 - TOBACCO USE SNOMED Code(s): 080428786 Comment: - Continue Nicotine Replacement. (7) Full code status Current Visit: No Status: Acute Code(s): Z78.9 - OTHER SPECIFIED HEALTH STATUS SNOMED Code(s): 311699891 (8) DVT prophylaxis Current Visit: No Status: Acute Priority: Low Code(s): Z29.9 - ENCOUNTER FOR PROPHYLACTIC MEASURES, UNSPECIFIED SNOMED Code(s): 072448615 Comment: - Ambulation, Low Risk Status and Disposition: BSU, Disposition per primary team. We will Continue to follow along from afar. Please feel free to call with any questions.
[2019-06-25] MEDS: Nicotine Lozenge* mini 4 MG LOZNG.MINI MT PRN (13:11)
--- NOTE | 2019-06-25 15:24 | PN ---
Subjective - Subjective Date of Service: 06/25/19 Service Type: [id number] Hosp care 15 min low complexity Subjective: Debi is pressured and hyperkinetic today on the BSU. She had an episode of hypotension and falling this morning after taking olanzapine last night and was seen by the hospitalist service, who are giving her IV fluids for dehydration. The patient could not fall asleep last night and would like her trazodone resumed. She denies SI or HI but is inappropriate, speaking in fake accents, laughing uncontrollably and making peers uncomfortable with lack of boundaries. She remains agreeable with rehab placement after discharge. Objective - General Observations Appearance: Disheveled Appears Stated Age: Yes Stature: WNL Posture: WNL Eye Contact: Intermittent Behavior/Activity: Impulsive - Interaction Observations Attitude Towards Examiner: Seductive Stated Mood: Expansive, Euphoric Affect: Labile Speech Pattern/Tone: Pressured Thought Process: Tangential Thought Content: Paranoid Thought Process: Lethality: Paranoid Ideation Hallucination Type: None Delusion Type: Persecution - Cognitive Function Orientation: A&O x 4 Level of Consciousness: Awake Cognition: WNL Estimated Intelligence: Normal Insight: Difficulty Acknowledging Presence of Psyciatric Problems Judgment Within Normal Limits: No Ability to Make Reasonable Decisions: Serverely Impaired - Medication Compliance Cooperative with Inpatient Medication Regimen: Yes - Group Participation Participates in Group Activities: Yes Assessment - Assessment Merits Inpatient Hospitalization: For Immediate Safety, For Stabilization Inpatient DSM-V Dx: F14.10 Clinical Impression: 44 y.o. , white female with a history of affective problems and two previous, remote BSU admissions, as well as significant polysubstance misuse, was transferred from the 4th floor to the BSU after presenting with paranoia and intermittent agitation and threatening to kill staff with a pair of scissors. BSU: Problem List - Patient Problems (1) Cocaine use disorder Current Visit: Yes Status: Acute Code(s): F14.10 - COCAINE ABUSE, UNCOMPLICATED SNOMED Code(s): 07813298 Plan - Plan Treatment Plan: The patient presents with a mixed episode of bipolar disorder. I have discontinued fluoxetine and replaced it with Depakote 250mg PO BID. I will discontinue olanzapine, as this caused orthostasis, and will replace it with lurasidone 20mg PO qhs. I will resume trazodone 100mg nightly as she insists that this is the only agent that helps her sleep. The hospitalist service is following for her neck abscess and swelling in her legs. Continue to treat and transfer to inpatient drug rehab once she is no longer a threat to others. Continued Medication Management: Different Medication Medications: Current Medications Clindamycin HCl (Cleocin Cap*) 300 mg PO TID [facility] Last Admin: 06/25/19 14:55 Dose: 300 mg Divalproex Sodium (Depakote Dr Tab(*)) 250 mg PO BID [facility] Last Admin: 06/25/19 08:30 Dose: 250 mg Gabapentin (Neurontin Cap(*)) 800 mg PO TID [facility] Last Admin: 06/25/19 14:54 Dose: Not Given Hydroxyzine HCl (Atarax Tab*) 50 mg PO Q6H PRN PRN Reason: anxiety Ibuprofen (Motrin Tab*) 600 mg PO Q6H PRN PRN Reason: PAIN - MILD Last Admin: 06/25/19 08:31 Dose: 600 mg Lurasidone HCl (Latuda) 20 mg PO BEDTIME [facility] Methadone HCl (Dolophine Tab*) 40 mg PO DAILY@0600 [facility] Last Admin: 06/25/19 08:29 Dose: 40 mg Nicotine (Nicotine Patch 21 Mg/24 Hr*) 1 patch TRANSDERM DAILY@0800 [facility] Last Admin: 06/25/19 09:41 Dose: Not Given Nicotine Polacrilex (Nicotine Lozenge Mini) 4 mg MT Q2H PRN PRN Reason: CRAVING Last Admin: 06/25/19 13:11 Dose: 4 mg Nicotine Polacrilex (Nicotine Gum*) 4 mg PO Q2H PRN PRN Reason: CRAVINGS Pharmacy Profile Note (Nicotine Patch Removal Note*) 1 note PATCH OFF 2100 [facility] Last Admin: 06/24/19 20:37 Dose: Not Given Trazodone HCl (Desyrel Tab*) 100 mg PO BEDTIME [facility] - Discharge Plan Discharge Plan: Drug/Alcohol Rehab
[2019-06-25] MEDS: Lurasidone(*) 20 MG TAB PO SCH (19:39)
[2019-06-25] MEDS: Nicotine Patch Removal NOTE PATCH OFF SCH (20:49)
[2019-06-25] MEDS: Calcium Carbonate CHEW TAB* 500 MG (TUMS) PO PRN (20:59)
[2019-06-25] MEDS: traZODone TAB* 100 MG PO SCH (22:01)
[2019-06-26] MEDS: Methadone TAB* 10 MG PO SCH (08:18)
[2019-06-26] MEDS: Gabapentin CAP(*) 400 MG PO SCH ×3 (08:19→20:33)
[2019-06-26] MEDS: Clindamycin CAP* 150 MG PO SCH ×3 (08:20→20:34)
[2019-06-26] MEDS: Divalproex DR TAB(*) 250 MG PO SCH ×2 (08:20→20:36)
[2019-06-26] MEDS: Nicotine PATCH 21 MG/24 HR* PATCH TRANSDERM SCH (08:21)
[2019-06-26] MEDS: Nicotine Lozenge* mini 4 MG LOZNG.MINI MT PRN (10:34)
--- NOTE | 2019-06-26 12:53 | PN ---
Subjective - Subjective Date of Service: 06/26/19 Service Type: [id number] Hosp care 15 min low complexity Subjective: Reports being in pain due to decrease of methadone dose. Debi does not know why methadone dose decreased. Reports there was an understanding on the medical floor to have methadone dispensed at a 50 mg dose and does not know why it was reduced to 40 mg dose. Reports she needs glasses desperately, and needs to get online to the [facility] optical department, and they will deliver her glasses. Reports she had a lot going on and she does not know why they put her here. Offered my understanding of reasons for admission as to treat oral abscess, followed by report of agitated behavior involving threat of violence with scissors, which Debi corrects as follows: denies making any threats. Still agreeable to placement in inpatient rehab. Objective - General Observations Appearance: Disheveled Appears Stated Age: No - older Stature: WNL Posture: WNL Eye Contact: Avoidant Behavior/Activity: WNL - Interaction Observations Attitude Towards Examiner: Cooperative Stated Mood: Euthymic Affect: Full Speech Pattern/Tone: Clear, Appropriate, Normal Volume Thought Process: Coherent, Goal Directed Perception: WNL Thought Content: WNL Hallucination Type: None, Denies Delusion Type: Denies - Cognitive Function Orientation: A&O x 4 Cognition: WNL Estimated Intelligence: Normal Insight: WNL Judgment Within Normal Limits: No Ability to Make Reasonable Decisions: Mildly Impaired - Medication Compliance Cooperative with Inpatient Medication Regimen: Yes - Group Participation Participates in Group Activities: Yes Assessment - Assessment Merits Inpatient Hospitalization: For Immediate Safety, For Stabilization, For Ongoing Evaluation, Consolidate Improvements Inpatient DSM-V Dx: F14.10 Clinical Impression: 44 y.o. , white female with a history of affective problems and two previous, remote BSU admissions, as well as significant polysubstance misuse, was transferred from the 4th floor to the BSU after presenting with paranoia and intermittent agitation and threatening to kill staff with a pair of scissors. Plan - Plan Treatment Plan: The patient presents with a mixed episode of bipolar disorder. I have discontinued fluoxetine and replaced it with Depakote 250mg PO BID. I will discontinue olanzapine, as this caused orthostasis, and will replace it with lurasidone 20mg PO qhs. I will resume trazodone 100mg nightly as she insists that this is the only agent that helps her sleep. The hospitalist service is following for her neck abscess and swelling in her legs. Continue to treat and transfer to inpatient drug rehab once she is no longer a threat to others. Update 10.5.19: Reports some sedation after taking her meds, otherwise no complaint of side effects. Doing much better, in behavioral control. Continued Medication Management: Different Medication Medications: Current Medications Calcium Carbonate (Tums*) 1,000 mg PO Q6H PRN PRN Reason: INDIGESTION Last Admin: 06/25/19 20:59 Dose: 1,000 mg Clindamycin HCl (Cleocin Cap*) 300 mg PO TID [facility] Last Admin: 06/26/19 08:20 Dose: 300 mg Divalproex Sodium (Depakote Dr Tab(*)) 250 mg PO BID [facility] Last Admin: 06/26/19 08:20 Dose: 250 mg Gabapentin (Neurontin Cap(*)) 800 mg PO TID [facility] Last Admin: 06/26/19 08:19 Dose: 800 mg Hydroxyzine HCl (Atarax Tab*) 50 mg PO Q6H PRN PRN Reason: anxiety Ibuprofen (Motrin Tab*) 600 mg PO Q6H PRN PRN Reason: PAIN - MILD Last Admin: 06/25/19 19:43 Dose: 600 mg Lurasidone HCl (Latuda) 20 mg PO BEDTIME [facility] Last Admin: 06/25/19 19:39 Dose: 20 mg Methadone HCl (Dolophine Tab*) 40 mg PO DAILY@0600 [facility] Last Admin: 06/26/19 08:18 Dose: 40 mg Nicotine (Nicotine Patch 21 Mg/24 Hr*) 1 patch TRANSDERM DAILY@0800 [facility] Last Admin: 06/26/19 08:21 Dose: Not Given Nicotine Polacrilex (Nicotine Lozenge Mini) 4 mg MT Q2H PRN PRN Reason: CRAVING Last Admin: 06/26/19 10:34 Dose: 4 mg Nicotine Polacrilex (Nicotine Gum*) 4 mg PO Q2H PRN PRN Reason: CRAVINGS Pharmacy Profile Note (Nicotine Patch Removal Note*) 1 note PATCH OFF 2100 [facility] Last Admin: 06/25/19 20:49 Dose: Not Given Trazodone HCl (Desyrel Tab*) 100 mg PO BEDTIME [facility] Last Admin: 10/04/19 22:01 Dose: 100 mg - Discharge Plan Discharge Plan: Drug/Alcohol Rehab
[2019-06-26] MEDS: Calcium Carbonate CHEW TAB* 500 MG (TUMS) PO PRN (13:59)
[2019-06-26] MEDS: Ibuprofen TAB* 600 MG PO PRN (18:57)
--- NOTE | 2019-06-26 19:27 | PN ---
Progress Note - Progress Note Date of Service: 06/26/19 Note: Debi requests methadone dose be increased back to 50 mg, her outpatient dosing at [facility]. As dose had been lowered due to sedation and she is no longer sedated, will increase dose back to 50 mg.
[2019-06-26] MEDS: Nicotine Patch Removal NOTE PATCH OFF SCH (19:36)
[2019-06-26] MEDS: Lurasidone(*) 20 MG TAB PO SCH (20:34)
[2019-06-26] MEDS: traZODone TAB* 100 MG PO SCH (20:34)
[2019-06-27] MEDS: Nicotine PATCH 21 MG/24 HR* PATCH TRANSDERM SCH (08:39)
[2019-06-27] MEDS: Clindamycin CAP* 150 MG PO SCH ×3 (08:39→20:55)
[2019-06-27] MEDS: Methadone TAB* 10 MG PO SCH (08:40)
[2019-06-27] MEDS: Gabapentin CAP(*) 400 MG PO SCH ×3 (08:41→20:54)
[2019-06-27] MEDS: Divalproex DR TAB(*) 250 MG PO SCH ×2 (08:41→20:55)
[2019-06-27 13:34] LABS: Ur Benzoylecgonine Confirm 277 ng/mL (Cutoff: 50); Urine Cocaine Confirm (GC/MS) Negative ng/mL (Cutoff: 50); Urine Cocaine Interpretation Positive.
[2019-06-27] MEDS: Ibuprofen TAB* 600 MG PO PRN (14:02)
[2019-06-27] MEDS: traZODone TAB* 100 MG PO SCH (20:56)
[2019-06-27] MEDS: Lurasidone(*) 20 MG TAB PO SCH (20:56)
[2019-06-27] MEDS: Nicotine Lozenge* mini 4 MG LOZNG.MINI MT PRN (20:58)
[2019-06-27] MEDS: Nicotine Patch Removal NOTE PATCH OFF SCH (20:58)
[2019-06-28] MEDS: Methadone TAB* 10 MG PO SCH (05:44)
[2019-06-28] MEDS: Divalproex DR TAB(*) 250 MG PO SCH ×2 (07:46→20:19)
[2019-06-28] MEDS: Clindamycin CAP* 150 MG PO SCH ×3 (07:46→20:19)
[2019-06-28] MEDS: Gabapentin CAP(*) 400 MG PO SCH ×2 (07:46→14:35)
[2019-06-28] MEDS: Nicotine PATCH 21 MG/24 HR* PATCH TRANSDERM SCH (07:48)
[2019-06-28] MEDS: Ibuprofen TAB* 600 MG PO PRN (14:46)
--- NOTE | 2019-06-28 14:52 | PN ---
Subjective - Subjective Date of Service: 06/28/19 Service Type: [id number] Hosp care 15 min low complexity Subjective: Patient extremely somnolent. Fell asleep in comfort room hunched over the piano. Staff had difficulty arousing her to return her to her room. The patient has an irritable edge at times and can be euphoric at others. Continues to deny SI or HI. Patient still agreeable with drug rehab. Objective - General Observations Appearance: Neat Appears Stated Age: No - vel Stature: WNL Posture: Slumped Eye Contact: Avoidant Behavior/Activity: Slowed - Interaction Observations Attitude Towards Examiner: Dismissive Stated Mood: Dysphoric Affect: Blunted Speech Pattern/Tone: Slurred Thought Process: Blocking Thought Content: Paranoid Thought Process: Lethality: Paranoid Ideation Hallucination Type: None Delusion Type: Persecution - Cognitive Function Orientation: Unable to Determine Level of Consciousness: Sedated Cognition: Impaired Cognition Estimated Intelligence: Normal Insight: WNL Judgment Within Normal Limits: No Ability to Make Reasonable Decisions: Mildly Impaired - Medication Compliance Cooperative with Inpatient Medication Regimen: Yes - Group Participation Participates in Group Activities: Yes Assessment - Assessment Merits Inpatient Hospitalization: For Immediate Safety, For Stabilization Inpatient DSM-V Dx: F14.10 Clinical Impression: 44 y.o. , white female with a history of affective problems and two previous, remote [facility] admissions, as well as significant polysubstance misuse, was transferred from the 4th floor to the BSU after presenting with paranoia and intermittent agitation and threatening to kill staff with a pair of scissors. BSU: Problem List - Patient Problems (1) Cocaine use disorder Current Visit: Yes Status: Acute Code(s): F14.10 - COCAINE ABUSE, UNCOMPLICATED SNOMED Code(s): 39347455 Plan - Plan Treatment Plan: The patient presents with a mixed episode of bipolar disorder. I have discontinued fluoxetine and replaced it with Depakote 250mg PO BID. We will check a valproate level in the AM. We will also increase lurasidone from 20 to 40mg PO qhs and decrease gabapentin from 800 to 300mg PO TID. The patient is also on trazodone 100mg PO qhs for insomnia. The hospitalist service is following for her neck abscess and swelling in her legs. Continue to treat and transfer to inpatient drug rehab once she is no longer a threat to others. Continued Medication Management: Different Medication Medications: Current Medications Calcium Carbonate (Tums*) 1,000 mg PO Q6H PRN PRN Reason: INDIGESTION Last Admin: 06/26/19 13:59 Dose: 1,000 mg Clindamycin HCl (Cleocin Cap*) 300 mg PO TID [facility] Last Admin: 06/28/19 14:13 Dose: 300 mg Divalproex Sodium (Depakote Dr Tab(*)) 250 mg PO BID [facility] Last Admin: 06/28/19 07:46 Dose: 250 mg Gabapentin (Neurontin Cap(*)) 300 mg PO TID [facility] Hydroxyzine HCl (Atarax Tab*) 50 mg PO Q6H PRN PRN Reason: anxiety Ibuprofen (Motrin Tab*) 600 mg PO Q6H PRN PRN Reason: PAIN - MILD Last Admin: 06/28/19 14:46 Dose: 600 mg Lurasidone HCl (Latuda) 40 mg PO BEDTIME [facility] Methadone HCl (Dolophine Tab*) 50 mg PO DAILY@0600 [facility] Last Admin: 06/28/19 05:44 Dose: 50 mg Nicotine (Nicotine Patch 21 Mg/24 Hr*) 1 patch TRANSDERM DAILY@0800 [facility] Last Admin: 06/28/19 07:48 Dose: Not Given Nicotine Polacrilex (Nicotine Lozenge Mini) 4 mg MT Q2H PRN PRN Reason: CRAVING Last Admin: 06/27/19 20:58 Dose: 4 mg Nicotine Polacrilex (Nicotine Gum*) 4 mg PO Q2H PRN PRN Reason: CRAVINGS Pharmacy Profile Note (Nicotine Patch Removal Note*) 1 note PATCH OFF 2100 [facility] Last Admin: 06/27/19 20:58 Dose: Not Given Trazodone HCl (Desyrel Tab*) 100 mg PO BEDTIME [facility] Last Admin: 06/27/19 20:56 Dose: 100 mg - Discharge Plan Discharge Plan: Drug/Alcohol Rehab
--- NOTE | 2019-06-28 15:36 | PN ---
Subjective Date of Service: 06/28/19 Interval History: Pt is tearful today; she is upset that her depakote is being decreased due to sedation. When asked how her leg edema is, the patient asks "who cares?" She does not want to discuss other topics and does not respond to ROS questions. Her only concern at this point is her medication decrease. Family History: Unchanged from Admission Social History: Unchanged from Admission Past Medical History: Unchanged from Admission Objective Active Medications: Calcium Carbonate (Tums*) 1,000 mg PO Q6H PRN Clindamycin HCl (Cleocin Cap*) 300 mg PO TID [facility] Divalproex Sodium (Depakote Dr Tab(*)) 250 mg PO BID [facility] Gabapentin (Neurontin Cap(*)) 300 mg PO TID [facility] Hydroxyzine HCl (Atarax Tab*) 50 mg PO Q6H PRN Ibuprofen (Motrin Tab*) 600 mg PO Q6H PRN Lurasidone HCl (Latuda) 40 mg PO BEDTIME [facility] Methadone HCl (Dolophine Tab*) 50 mg PO DAILY@0600 [facility] Nicotine (Nicotine Patch 21 Mg/24 Hr*) 1 patch TRANSDERM DAILY@0800 [facility] Nicotine Polacrilex (Nicotine Lozenge Mini) 4 mg MT Q2H PRN Nicotine Polacrilex (Nicotine Gum*) 4 mg PO Q2H PRN Pharmacy Profile Note (Nicotine Patch Removal Note*) 1 note PATCH OFF 2100 [facility] Trazodone HCl (Desyrel Tab*) 100 mg PO BEDTIME [facility] Vital Signs: Temp Pulse Resp BP Pulse Ox 98.6 F 62 12 96/55 98 06/28/19 13:52 06/28/19 13:52 06/28/19 13:52 06/28/19 13:52 06/28/19 13:52 Oxygen Devices in Use Now: None Appearance: Pt is sitting in chair, coloring and dozing off. She wakes easily and becomes tearful when we start to talk. She is clearly upset, in no acute distress. Neck: NL Appearance and Movements; NL JVP, Trachea Midline Respiratory: Symmetrical Chest Expansion and Respiratory Effort, Clear to Auscultation Cardiovascular: NL Sounds; No Murmurs; No JVD, RRR Extremities: No Clubbing, Cyanosis, - - Pt has b/l LE edema, nonpitting. Neurological: Alert and Oriented x 3 - Nutrition: Malnutrition Diagnosis/Plan Malnutrition Assessment by Registered Dietitian: Malnutrition Assessment Clinical Characteristics Acute,Moderate Malnutrition Assessment: -7# (4.8%) wt loss x <1 wk (147#-->140#) Criteria -consuming avg 33% x 7 days -BLE and BUE edema noted per nsg documentation Malnutrition Assessment: -Continue to monitor intakes Interventions -Provide food preferences as able -Ensure enlive 350 kcals, 20 g pro, once daily at 10am Malnutrition Assessment: Goals adequate intake to support hydration and lean body mass without add'l wt loss Result Diagrams: 06/21/19 15:57 06/22/19 08:38 Microbiology and Other Data: Microbiology 06/16/19 20:19 Urine Culture - Final Urine No Growth (<1,000 CFU/mL) Diagnostic Imaging: CT Soft Tissue Neck Without Contrast FINDINGS: Sinuses: Multiple radicular cysts involving the maxillary first and second premolars and the remaining first and second molars. Additional radicular cyst right maxillary first molar. Multiple dental caries bilaterally are also noted. Small air fluid level with mucosal thickening left maxillary sinus. Minimal mucosal thickening right maxillary sinus. Nasopharynx: Normal. No mucosal masses or thickening. Oropharynx: See Soft Tissues Finding. Hypopharynx: Normal. No mucosal masses or thickening. Larynx: Normal. Normal epiglottis. Retropharyngeal space: Normal. No effusion. Submandibular/Parotid glands: Normal. Glands are normal in size. Thyroid: Normal. No enlarged or calcified nodules. Lymph nodes: Multiple reactive bilateral cervical chain lymph nodes including right level III node measuring 1.2 cm (series 2, image 54) and left level III node measuring 0.9 cm (series 2, image 58). Trachea: Visualized trachea is normal. Esophagus: Visualized esophagus is normal. Lungs: Normal as visualized. Bones/joints: Normal. No acute fracture. Soft tissues: Subcutaneous stranding along the right greater than left pre-mandibular soft tissues extending below the mandible and along the anterior neck. Stranding involves the bilateral submandibular, sublingual, carotid, and masseter spaces. Possible fluid collection along the tongue base which measures 3.2 x 2.5 x 2.5 cm (series 2/601, image 64/50). Single tiny focus of gas. IMPRESSION: 1. 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 2. Multiple dental caries and associated radicular cysts. Assess/Plan/Problems-Billing Assessment: 44 yof PMHx IVDU, anxiety, depression presents with swelling of the submandibular space who is now admitted to the B[facility] and improving. - Patient Problems (1) Edema Comment: -Bilateral UE, LE nonpitting edema; improving -Estimated urinary protein excretion 0.1g/d, WNL- low suspicion for nephrotic syndrome -Echo EF 55-60% without signs of diastolic HF, so no CHF -Low suspicion for DVT, as this is occurring in all extremities -Continue TEDs -Likely dependent edema as patient is frequently standing in hospital room, discussed resting and elevating extremities - Possibly related to high dose Gabapentin (2) Hypotension Comment: - Likely related to Medications, not symptomatic, not likely primary etiology of fall - Olanzapine new medication and likely culprit, discussed pursuing alternative therapy with psychiatry - Give fluids to support BP and facilitate medication clearance (3) Cellulitis of neck Comment: - No airway compromise; swallowing, jaw movement intact - Dr. Cowan saw patient during last admission - CT neck soft tissue w/contrast 06/15/[address] Cowan suspects the submandibular swelling is cellulitis secondary to worsening tooth abscess. - Blood cultures were never obtained prior to IV abx administration in prior admission. - Continue for 3 total weeks Clinda - Pt will need outpatient follow up with dental services/oral surgery angelina - No signs of worsening, not likely cause of hypotension (4) Depression Comment: -Recommendations and management per BSU (5) DVT prophylaxis Comment: - Ambulation, Low Risk (6) Full code status Status and Disposition: BSU, Disposition per primary team. Thank you for allowing us to participate in the care of Ms. Rodriguez. The hospitalist team will sign off. Please don't hesitate to reconsult or call with any concerns.
[2019-06-28] MEDS: Nicotine Lozenge* mini 4 MG LOZNG.MINI MT PRN ×3 (15:41→22:42)
[2019-06-28] MEDS: traZODone TAB* 100 MG PO SCH (20:19)
[2019-06-28] MEDS: Gabapentin CAP(*) 300 MG PO SCH (20:20)
[2019-06-28] MEDS: Nicotine Patch Removal NOTE PATCH OFF SCH (20:26)
[2019-06-28] MEDS ORDERED: Lurasidone(*) 40 MG TAB PO SCH (21:00)
[2019-06-29] MEDS: Methadone TAB* 10 MG PO SCH (07:55)
[2019-06-29] MEDS: Gabapentin CAP(*) 300 MG PO SCH ×3 (07:56→21:20)
[2019-06-29] MEDS: Divalproex DR TAB(*) 250 MG PO SCH (07:58)
[2019-06-29] MEDS: Nicotine PATCH 21 MG/24 HR* PATCH TRANSDERM SCH (07:58)
[2019-06-29] MEDS: Ibuprofen TAB* 600 MG PO PRN ×2 (08:25→15:24)
[2019-06-29] MEDS: Clindamycin CAP* 150 MG PO SCH ×3 (11:43→20:13)
--- NOTE | 2019-06-29 16:04 | PN ---
Subjective - Subjective Date of Service: 06/29/19 Service Type: [id number] Hosp care 15 min low complexity Subjective: The patient remains manic and inappropriate. As I approach her in the day area she has just gotten up from sitting on a heating pad and is inviting staff to touch her hind quarters to see for themselves how hot her buttocks are. She started refusing Depakote last night and this morning, blaming her sedation on this. Despite self-discontinuation of Depakote and our decrease in her gabapentin dose, she remains somnolent at times and can be seen falling asleep mid-sentence at times. She continues to deny SI or HI. She is tolerating lurasidone well and appeared to sleep better last night. Objective - General Observations Appearance: Well Groomed Appears Stated Age: Yes Stature: WNL Posture: Slumped Eye Contact: Avoidant Behavior/Activity: Impulsive - Interaction Observations Attitude Towards Examiner: Seductive Stated Mood: Angry Affect: Restricted Speech Pattern/Tone: Excessive Thought Process: Goal Directed Thought Content: Paranoid Thought Process: Lethality: Paranoid Ideation Hallucination Type: None Delusion Type: Persecution - Cognitive Function Orientation: A&O x 4 Level of Consciousness: Drowsy, Sedated Cognition: WNL Estimated Intelligence: Normal Insight: WNL Judgment Within Normal Limits: No Ability to Make Reasonable Decisions: Mildly Impaired - Medication Compliance Cooperative with Inpatient Medication Regimen: Partial - Group Participation Participates in Group Activities: Yes Assessment - Assessment Merits Inpatient Hospitalization: For Immediate Safety, For Stabilization Inpatient DSM-V Dx: F14.10 Clinical Impression: 44 y.o. , white female with a history of affective problems and two previous, remote [facility] admissions, as well as significant polysubstance misuse, was transferred from the 4th floor to the BSU after presenting with paranoia and intermittent agitation and threatening to kill staff with a pair of scissors. BSU: Problem List - Patient Problems (1) Cocaine use disorder Current Visit: Yes Status: Acute Code(s): F14.10 - COCAINE ABUSE, UNCOMPLICATED SNOMED Code(s): 09449275 Plan - Plan Treatment Plan: The patient continues to have manic symptoms. She is refusing Depakote now and we will discontinue this in favor of increasing her lurasidone to 60mg at night. Unfortunately, her decrease in gabapentin from 800 to 300mg PO TID did not resolve her drowsiness. We will continue to follow this. The patient is also on trazodone 100mg PO qhs for insomnia. Await rehab placement. Continued Medication Management: Different Medication Medications: Current Medications Calcium Carbonate (Tums*) 1,000 mg PO Q6H PRN PRN Reason: INDIGESTION Last Admin: 06/26/19 13:59 Dose: 1,000 mg Clindamycin HCl (Cleocin Cap*) 300 mg PO TID [facility] Last Admin: 06/29/19 15:27 Dose: 300 mg Divalproex Sodium (Depakote Dr Tab(*)) 250 mg PO BID [facility] Last Admin: 06/29/19 07:58 Dose: Not Given Gabapentin (Neurontin Cap(*)) 300 mg PO TID [facility] Last Admin: 06/29/19 15:25 Dose: 300 mg Hydroxyzine HCl (Atarax Tab*) 50 mg PO Q6H PRN PRN Reason: anxiety Ibuprofen (Motrin Tab*) 600 mg PO Q6H PRN PRN Reason: PAIN - MILD Last Admin: 06/29/19 15:24 Dose: 600 mg Lurasidone HCl (Latuda) 40 mg PO BEDTIME [facility] Last Admin: 06/28/19 20:19 Dose: 40 mg Methadone HCl (Dolophine Tab*) 50 mg PO DAILY@0600 [facility] Last Admin: 06/29/19 07:55 Dose: 50 mg Nicotine (Nicotine Patch 21 Mg/24 Hr*) 1 patch TRANSDERM DAILY@0800 [facility] Last Admin: 06/29/19 07:58 Dose: Not Given Nicotine Polacrilex (Nicotine Lozenge Mini) 4 mg MT Q2H PRN PRN Reason: CRAVING Last Admin: 06/28/19 22:42 Dose: 4 mg Nicotine Polacrilex (Nicotine Gum*) 4 mg PO Q2H PRN PRN Reason: CRAVINGS Pharmacy Profile Note (Nicotine Patch Removal Note*) 1 note PATCH OFF 2100 [facility] Last Admin: 06/28/19 20:26 Dose: Not Given Trazodone HCl (Desyrel Tab*) 100 mg PO BEDTIME [facility] Last Admin: 06/28/19 20:19 Dose: 100 mg - Discharge Plan Discharge Plan: Drug/Alcohol Rehab Lab Results - Lab Results Lab Results: 06/16/19 20:19 U Cocaine Confirm GC/MS Negative U Cocaine Metab Comment Not Reportable U Benzoylecgonine GC/MS 277 Ur Cocaine Interpret Positive.
[2019-06-29] MEDS: Nicotine Lozenge* mini 4 MG LOZNG.MINI MT PRN (18:07)
[2019-06-29] MEDS: traZODone TAB* 100 MG PO SCH (20:14)
[2019-06-29] MEDS: Lurasidone(*) 60 MG TAB PO SCH (20:14)
[2019-06-29] MEDS: Nicotine Patch Removal NOTE PATCH OFF SCH (20:16)
[2019-06-30] MEDS: Ibuprofen TAB* 600 MG PO PRN (03:15)
[2019-06-30] MEDS: Methadone TAB* 10 MG PO SCH (08:37)
[2019-06-30] MEDS: Clindamycin CAP* 150 MG PO SCH ×3 (08:38→21:04)
[2019-06-30] MEDS: Gabapentin CAP(*) 300 MG PO SCH ×3 (08:39→21:04)
[2019-06-30] MEDS: Nicotine Lozenge* mini 4 MG LOZNG.MINI MT PRN ×3 (08:41→21:31)
[2019-06-30] MEDS: Nicotine PATCH 21 MG/24 HR* PATCH TRANSDERM SCH (09:23)
--- NOTE | 2019-06-30 15:39 | PN ---
Subjective - Subjective Date of Service: 06/30/19 Service Type: [id number] Hosp care 15 min low complexity Subjective: Debi seems far more alert and interactive today. She has been attending groups and is appropriately working on ordering a replacement set of eye glasses through her Medicaid insurer. She is agreeable with inpatient drug rehab placement, however, she is choosy about where she will go. "I need to go someplace that has a good reputation and where they let you smoke." She is informed that patient's are not always afforded options when placed in rehab settings. She is tolerating lurasidone well and continues to deny SI or HI. Objective - General Observations Appearance: Well Groomed Appears Stated Age: Yes Stature: WNL Eye Contact: Average Behavior/Activity: Agitated - Interaction Observations Attitude Towards Examiner: Cooperative Stated Mood: Euthymic Affect: Full Speech Pattern/Tone: Appropriate Thought Process: Coherent Thought Content: WNL Hallucination Type: None Delusion Type: None - Cognitive Function Orientation: A&O x 4 Level of Consciousness: Awake Cognition: WNL Estimated Intelligence: Normal Insight: WNL Judgment Within Normal Limits: No - Medication Compliance Cooperative with Inpatient Medication Regimen: Yes - Group Participation Participates in Group Activities: Yes Assessment - Assessment Merits Inpatient Hospitalization: Consolidate Improvements, Pending Safe DC Plan Inpatient DSM-V Dx: F14.10 Clinical Impression: 44 y.o. , white female with a history of affective problems and two previous, remote [facility] admissions, as well as significant polysubstance misuse, was transferred from the 4th floor to the B[facility] after presenting with paranoia and intermittent agitation and threatening to kill staff with a pair of scissors. BSU: Problem List - Patient Problems (1) Cocaine use disorder Current Visit: Yes Status: Acute Code(s): F14.10 - COCAINE ABUSE, UNCOMPLICATED SNOMED Code(s): 71238127 Plan - Plan Treatment Plan: The patient's emiliano is improving on lurasidone 60mg at night. She is also on gabapentin 300mg PO TID and trazodone 100mg PO qhs. Await rehab placement. Continued Medication Management: Different Medication Medications: Current Medications Calcium Carbonate (Tums*) 1,000 mg PO Q6H PRN PRN Reason: INDIGESTION Last Admin: 06/26/19 13:59 Dose: 1,000 mg Clindamycin HCl (Cleocin Cap*) 300 mg PO TID [facility] Last Admin: 06/30/19 14:54 Dose: 300 mg Gabapentin (Neurontin Cap(*)) 300 mg PO TID [facility] Last Admin: 06/30/19 14:24 Dose: 300 mg Hydroxyzine HCl (Atarax Tab*) 50 mg PO Q6H PRN PRN Reason: anxiety Ibuprofen (Motrin Tab*) 600 mg PO Q6H PRN PRN Reason: PAIN - MILD Last Admin: 06/30/19 03:15 Dose: 600 mg Lurasidone HCl (Latuda) 60 mg PO BEDTIME [facility] Last Admin: 06/29/19 20:14 Dose: 60 mg Methadone HCl (Dolophine Tab*) 50 mg PO DAILY@0600 [facility] Last Admin: 06/30/19 08:37 Dose: 50 mg Nicotine (Nicotine Patch 21 Mg/24 Hr*) 1 patch TRANSDERM DAILY@0800 [facility] Last Admin: 06/30/19 09:23 Dose: Not Given Nicotine Polacrilex (Nicotine Lozenge Mini) 4 mg MT Q2H PRN PRN Reason: CRAVING Last Admin: 06/30/19 14:25 Dose: 4 mg Nicotine Polacrilex (Nicotine Gum*) 4 mg PO Q2H PRN PRN Reason: CRAVINGS Pharmacy Profile Note (Nicotine Patch Removal Note*) 1 note PATCH OFF 2100 [facility] Last Admin: 06/29/19 20:16 Dose: Not Given Trazodone HCl (Desyrel Tab*) 100 mg PO BEDTIME [facility] Last Admin: 06/29/19 20:14 Dose: 100 mg - Discharge Plan Discharge Plan: Drug/Alcohol Rehab
[2019-06-30] MEDS: Lurasidone(*) 60 MG TAB PO SCH (21:03)
[2019-06-30] MEDS: traZODone TAB* 100 MG PO SCH (21:31)
[2019-06-30] MEDS: Nicotine Patch Removal NOTE PATCH OFF SCH (21:31)
[2019-07-01] MEDS: Clindamycin CAP* 150 MG PO SCH ×3 (08:36→21:38)
[2019-07-01] MEDS: Gabapentin CAP(*) 300 MG PO SCH ×3 (08:36→21:37)
[2019-07-01] MEDS: Ibuprofen TAB* 600 MG PO PRN ×2 (08:37→19:04)
[2019-07-01] MEDS: Methadone TAB* 10 MG PO SCH (08:37)
[2019-07-01] MEDS: Nicotine Lozenge* mini 4 MG LOZNG.MINI MT PRN ×5 (08:38→21:40)
[2019-07-01] MEDS: Nicotine PATCH 21 MG/24 HR* PATCH TRANSDERM SCH (08:38)
[2019-07-01] MEDS: traZODone TAB* 100 MG PO SCH (21:36)
[2019-07-01] MEDS: Lurasidone(*) 60 MG TAB PO SCH (21:36)
[2019-07-01] MEDS: Nicotine Patch Removal NOTE PATCH OFF SCH (23:05)
[2019-07-02] MEDS: Ibuprofen TAB* 600 MG PO PRN (04:18)
[2019-07-02] MEDS: Nicotine Lozenge* mini 4 MG LOZNG.MINI MT PRN ×2 (04:20→08:42)
[2019-07-02] MEDS: Methadone TAB* 10 MG PO SCH (08:40)
[2019-07-02] MEDS: Clindamycin CAP* 150 MG PO SCH (08:40)
[2019-07-02] MEDS: Gabapentin CAP(*) 300 MG PO SCH (08:41)
[2019-07-02] MEDS: Nicotine PATCH 21 MG/24 HR* PATCH TRANSDERM SCH (09:32)
[2019-07-02 09:50] VITALS: BP 100/63
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
== END 2019-07-02 11:30 | disposition home or self-care (01) | DRG 114 ==
LOC: ED 19:34 → MED 23:13 → BSU 06-23 16:06
PROVIDERS: ADMIT Hospitalist; ATTEND Psychiatry & Neurology Psychiatry
DX: K12.2 Cellulitis and abscess of mouth (principal); G92 Toxic encephalopathy; F31.2 Bipolar disorder, current episode manic severe with psychotic features; F11.20 Opioid dependence, uncomplicated; N17.9 Acute kidney failure, unspecified; T40.3X5A Adverse effect of methadone, initial encounter; F43.10 Post-traumatic stress disorder, unspecified; F41.9 Anxiety disorder, unspecified; F17.210 Nicotine dependence, cigarettes, uncomplicated; F14.10 Cocaine abuse, uncomplicated; F12.10 Cannabis abuse, uncomplicated; K04.7 Periapical abscess without sinus; R60.0 Localized edema; F90.9 Attention-deficit hyperactivity disorder, unspecified type; E86.0 Dehydration; I95.2 Hypotension due to drugs; T43.595A Adverse effect of other antipsychotics and neuroleptics, initial encounter; Y92.239 Unspecified place in hospital as the place of occurrence of the external cause; Z80.1 Family history of malignant neoplasm of trachea, bronchus and lung; Z88.8 Allergy status to other drugs, medicaments and biological substances; Z98.51 Tubal ligation status; Z90.79 Acquired absence of other genital organ(s); Z91.030 Bee allergy status; Z88.0 Allergy status to penicillin; Z91.013 Allergy to seafood; Y92.9 Unspecified place or not applicable
CPT/HCPCS: 36415; 70450; 70491; 80048; 80202; 80307; 80320; 80349; 80353; 80364; 81003; 81015; 82570; 84156; 85025; 85027; 86140; 87086; 93306; 99222; 99231; 99238; 99284; A9270-GY; G0480; J0692; J2060; J3370; Q9967